=== PATIENT | female | born 1965 | race Caucasian/White ===

== ENCOUNTER 2025-07-21 14:52 | Observation (INO) | payer OTHER, SELFPAY ==
[2025-07-21] VITALS (12 sets, daily range): BP systolic 107–158; BP diastolic 63–101; PULSE 44–84; RESP 17–18; TEMP 36.6; O2SAT 94–100; BMI 24.9
--- NOTE | 2025-07-21 15:06 | CTR_ITS ---
PROCEDURE INFORMATION: Exam: CTA Head With Contrast, Arteriography Exam date and time: 07/21/2025 3:14 PM Age: 60 years old Clinical indication: Dizziness and giddiness and vertigo; Additional info: CVA TECHNIQUE: Imaging protocol: Computed tomographic angiography of the head with contrast. Exam focused on the arteries. AI vessel analysis not performed. 3D rendering (Not supervised by radiologist): MIP and/or 3D reconstructed images were created by the technologist. Radiation optimization: All CT scans at this facility use at least one of these dose optimization techniques: automated exposure control; mA and/or kV adjustment per patient size (includes targeted exams where dose is matched to clinical indication); or iterative reconstruction. Contrast material: OMNIPAQUE 350; Contrast volume: 100 ml; Contrast route: INTRAVENOUS (IV); COMPARISON: CT head thrombolytic [id number] 07/21/2025 3:10 PM RADIATION DOSE METRICS: Total DLP (mGy-cm): 437.52 FINDINGS: ANTERIOR CIRCULATION: Right internal carotid artery: Right internal carotid artery is patent. No significant stenosis. No aneurysm. Right middle cerebral artery: Right middle cerebral artery is patent. No significant stenosis. No aneurysm. Right anterior cerebral artery: The right NABOR is patent. There is variant azygos configuration present. Anterior communicating artery: No anterior communicating artery aneurysm seen. Left internal carotid artery: The left internal carotid artery is patent. Left middle cerebral artery: The left MCA is patent. There is a 4 x 5 mm aneurysm present at the left MCA bifurcation on series 4, image 227. Left anterior cerebral artery: Left anterior cerebral artery is patent. No significant stenosis. No aneurysm. POSTERIOR CIRCULATION: Right vertebral artery: Right vertebral artery is patent. No significant stenosis. No aneurysm. Left vertebral artery: Left vertebral artery is patent. No significant stenosis. No aneurysm. Basilar artery: The basilar artery is patent. No significant stenosis. No aneurysm. Right posterior cerebral artery: The right REGULATORY AFFAIRS ASSISTANT has anatomic variant origin. Left posterior cerebral artery: Left posterior cerebral artery is patent. No significant stenosis. No aneurysm. Left posterior communicating artery: There is a 2.5 mm infundibulum or small aneurysm left PCOM origin series 4, image 216. Veins: Visualized dural venous sinuses grossly patent on this study optimized for arterial assessment. Brain: There is no definite mass, mass effect, or midline shift present. No definite vascular malformation identified. Cerebral ventricles: No significant ventriculomegaly. Paranasal sinuses: Chronic left maxillary sinus opacification again seen. Bones/joints: No displaced calvarial fracture identified. Soft tissues: No acute soft tissue findings. PROCEDURE INFORMATION: Exam: CTA Neck With Contrast Exam date and time: 07/21/2025 3:14 PM Age: 60 years old Clinical indication: Dizziness and giddiness and vertigo; Additional info: CVA TECHNIQUE: Imaging protocol: Computed tomographic angiography of the neck with contrast. Exam focused on the cervical segments of the vasculature. 3D rendering (Not supervised by radiologist): MIP and/or 3D reconstructed images were created by the technologist. Radiation optimization: All CT scans at this facility use at least one of these dose optimization techniques: automated exposure control; mA and/or kV adjustment per patient size (includes targeted exams where dose is matched to clinical indication); or iterative reconstruction. Contrast material: OMNIPAQUE 350; Contrast volume: 100 ml; Contrast route: INTRAVENOUS (IV); COMPARISON: CT head thrombolytic [id number] 07/21/2025 3:10 PM RADIATION DOSE METRICS: Total DLP (mGy-cm): 437.52 FINDINGS: Right common carotid artery: The right common carotid artery is widely patent. No stenosis. Right internal carotid artery: Atherosclerotic changes proximal right internal carotid artery are seen without significant stenosis. Right external carotid artery: Right external carotid artery has no visible occlusion. Left common carotid artery: The left common carotid artery is widely patent. No stenosis. Left internal carotid artery: Atherosclerotic changes proximal left internal carotid artery are seen without significant stenosis. Left external carotid artery: Left external carotid artery has no visible occlusion. Right vertebral artery: Right vertebral artery is patent. No significant stenosis. No evidence of dissection. Left vertebral artery: Left vertebral artery is patent. No significant stenosis. No evidence of dissection. Soft tissues: No acute soft tissue findings. Bones/joints: Degenerative bony changes. Lungs: Emphysema in the lungs. Other findings: Visualized mediastinal vasculature patent. CT/CT angio headneck* [id number] IMPRESSION: 1. No acute large vessel occlusion identified. 2. There is a 4 x 5 mm aneurysm present at the left MCA bifurcation on series 4, image 227. Neurosurgical follow-up recommended given size. 3. There is a 2.5 mm infundibulum or small aneurysm left PCOM origin series 4, image 216. IMPRESSION: No occlusion or significant stenosis. REFERENCES: NASCET CRITERIA. The degree of stenosis in the cervical segment of the internal carotid artery is based on NASCET criteria. Normal is no stenosis. Mild is less than 50% stenosis. Moderate is 50-69% stenosis. Severe is 70% to 99% stenosis. Total occlusion is no detectable patent lumen.
--- NOTE | 2025-07-21 15:06 | XRR_ITS ---
PROCEDURE INFORMATION: Exam: XR Chest Exam date and time: 07/21/2025 3:15 PM Age: 60 years old Clinical indication: Other: Dizzy; Additional info: CVA TECHNIQUE: Imaging protocol: Radiologic exam of the chest. Views: 1 view. COMPARISON: No relevant prior studies available. FINDINGS: Airway: The trachea is midline. Lungs: No focal consolidation. Pleural spaces: No significant pleural effusion. No pneumothorax. Heart/Mediastinum: Mild cardiomegaly. Vasculature: Aortic tortuosity. Bones/joints: No acute osseous abnormality. Soft tissues: No acute soft tissue findings. XR/XR chest 1V portable [id number] IMPRESSION: No acute findings.
--- NOTE | 2025-07-21 15:07 | CTR_ITS ---
PROCEDURE INFORMATION: Exam: CT Head Without Contrast Exam date and time: 07/21/2025 3:10 PM Age: 60 years old Clinical indication: Stroke-like symptoms; Dizziness/giddiness and vomiting; Additional info: Symptoms of acute stroke TECHNIQUE: Imaging protocol: Computed tomography of the head without contrast. Radiation optimization: All CT scans at this facility use at least one of these dose optimization techniques: automated exposure control; mA and/or kV adjustment per patient size (includes targeted exams where dose is matched to clinical indication); or iterative reconstruction. Other technique: STROKE PROTOCOL was implemented. COMPARISON: No relevant prior studies available. RADIATION DOSE METRICS: Total DLP (mGy-cm): 1060.98 FINDINGS: Brain: No acute infarct. No acute hemorrhage. Unremarkable white matter for age. No midline shift. Cerebral ventricles: No significant ventriculomegaly. Paranasal sinuses: Partially seen left maxillary sinus opacification with crowding osteitis changes. Mild mucosal thickening in the ethmoids. No air-fluid level seen. Mastoid air cells: Mastoid air cells are well-aerated. Orbital cavities: Visualized portions of the orbits are unremarkable. Bones: No displaced calvarial fracture identified. Soft tissues: No acute soft tissue findings. CT/CT head thrombolytic [id number] IMPRESSION: 1. No acute intracranial abnormality. 2. Chronic left maxillary sinusitis changes. ASSESSMENT: ASPECTS ([place] Stroke Program Early CT Score) is 10.
[2025-07-21 15:16] LABS: Hematocrit 38.5 % (36-47); Hemoglobin 13.00 g/dL (11.27-16.99); Mean Corpuscular HGB Conc 33.8 g/dL (30-55); Mean Corpuscular Hemoglobin 30.4 pg (27-33); Mean Corpuscular Volume 90.0 fl (85-98); Nucleated Red Blood Cells % 0 %; Platelet Count 222 10^3/cmm (157-399); Red Blood Count 4.28 10^6/uL (3.85-5.65); White Blood Count 7.79 10^3/uL (3.29-11.43)
[2025-07-21] MEDS: iohexol 350 mg/mL 500 mL Btl (per mL) IV (15:22)
[2025-07-21 15:27] LABS: INR 0.79 (0.8-1.2); Prothrombin Time 11.60 SECONDS (12.1-14.9)
[2025-07-21 15:28] LABS: Partial Thromboplastin Time 28.1 SECONDS (23.9-36.7)
[2025-07-21 15:32] LABS: Alanine Aminotransferase 20 U/L (0-33); Albumin Level 4.3 g/dL (3.5-5.2); Alkaline Phosphatase 67 U/L (35-105); Aspartate Amino Transferase 24 U/L (0-32); Blood Urea Nitrogen 22 mg/dL (8-23); Calcium 9.6 mg/dL (8.5-10.5); Carbon Dioxide 24 mmol/L (22-29); Chloride 98 mmol/L (98-107); Globulin 2.9 g/dL (1.3-4.6); Glucose 110 mg/dL (65-115); Osmolality Calculated 286 mOsm/kg (285-295); Sodium 136 mmol/L (136-145); Total Protein 7.2 g/dL (6.6-8.7)
[2025-07-21 15:36] LABS: Anion Gap 17.5 (5-19); Potassium 3.5 mmol/L (3.5-5.1)
--- NOTE | 2025-07-21 15:58 | ECG_ITS ---
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: : 1965 Requested By: Armando Tejeda Order Number: [id number] Lev MD: EDITH RICE Measurements Intervals [place] Rate: 46 P: 42 SC: 185 QRS: -48 QRSD: 96 T: 48 QT: 476 QTc: 417 Interpretive Statements SINUS BRADYCARDIA INCOMPLETE RIGHT BUNDLE BRANCH BLOCK [90+ ms QRS DURATION, TERMINAL R IN V1/V2, 40+ ms S IN I/aVL/V4/V5/V6] LEFT ANTERIOR FASCICULAR BLOCK [QRS AXIS <= -45, QR IN I, RS IN II] No previous ECG available for comparison Electronically Signed On 07-21-2025 22:51:11 PROCESS SAFETY ENGINEER by EDITH RICE [email or web address]
[2025-07-21] MEDS: ondansetron 2 mg/ML SDV 2 mL 4 MG IVP (16:12)
--- NOTE | 2025-07-21 16:15 | ED_ITS ---
HPI - Dizziness 2 General: Chief Complaint: Dizziness Stated Complaint: dizzy Time Seen by Provider: 07/21/25 15:04 Source: patient and EMS Mode of arrival: EMS Limitations: no limitations History of Present Illness: HPI Narrative: 60-year-old female states that she got a shower around 1330 today and started having dizziness. She states that it is much worse with movement been having a hard time walking due to the dizziness along with some nausea. States it is improved with rest. Has a history of an aneurysm in the brain she is unsure where. She denies any headaches she denies any focal weakness denies any vomiting or diarrhea. Related Data Allergies Allergy/AdvReac Type Severity Reaction Status Date / Time No Known Allergies Allergy Verified 07/21/25 15:01 Course 2 Vital Signs: Vital signs: Vital Signs Temperature 97.9 F 07/21/25 14:52 Pulse Rate 52 L 07/21/25 14:52 Respiratory Rate 18 07/21/25 14:52 Blood Pressure 127/81 07/21/25 14:52 Pulse Oximetry 100 07/21/25 14:52 Oxygen Delivery Ar thod Room Air 07/21/25 14:52 MDM - Dizziness Medical Decision Making 60-year-old female presents here with vertigo differential includes peripheral vertigo versus posterior stroke. Patient has no other neurologic findings her head CT showed no acute abnormalities CTA showed no signs of LVO lab work showed no significant abnormalities here. Patient was evaluated by neurologist from [facility] by teleneurology he did not recommend TNKase as they believe is likely peripheral in origin I did give her Antivert and Zofran her symptoms have improved here I did speak to hospitalist will admit for observation to rule out posterior stroke EKG interpreted by me at 1558 sinus bradycardia heart rate [address] elevation QRS 96 QTc 434 Medical Records I reviewed the patient's medical records. Lab Data I reviewed the patient's lab results. 07/21/25 15:07 07/21/25 15:07 Radiology Impressions Chest X-Ray 07/21/25 15:06 IMPRESSION: No acute findings. Head/Neck CTA 07/21/25 15:06 IMPRESSION: 1. No acute large vessel occlusion identified. 2. There is a 4 x 5 mm aneurysm present at the left MCA bifurcation on series 4, image 227. Neurosurgical follow-up recommended given size. 3. There is a 2.5 mm infundibulum or small aneurysm left PCOM origin series 4, image 216. IMPRESSION: No occlusion or significant stenosis. REFERENCES: NASCET CRITERIA. The degree of stenosis in the cervical segment of the internal carotid artery is based on NASCET criteria. Normal is no stenosis. Mild is less than 50% stenosis. Moderate is 50-69% stenosis. Severe is 70% to 99% stenosis. Total occlusion is no detectable patent lumen. Head CT 07/21/25 15:07 IMPRESSION: 1. No acute intracranial abnormality. 2. Chronic left maxillary sinusitis changes. ASSESSMENT: ASPECTS ([place] Stroke Program Early CT Score) is 10. ADDENDUM: 07/21/25 1531 Findings were discussed with ISHAN Jiang at 07/21/2025 3:29 PM SHEET MANUFACTURING SUPERVISOR. Laboratory Results WBC 7.79 10^3/uL (3.29-11.43) 07/21/25 15:07 RBC 4.28 10^6/uL (3.85-5.65) 07/21/25 15:07 Hgb 13.00 g/dL (11.27-16.99) 07/21/25 15:07 Hct 38.5 % (36-47) 07/21/25 15:07 MCV 90.0 fl (85-98) 07/21/25 15:07 MCH 30.4 pg (27-33) 07/21/25 15:07 MCHC 33.8 g/dL (30-55) 07/21/25 15:07 RDW 13.4 % (12.1-15.1) 07/21/25 15:07 Plt Count 222 10^3/cmm (157-399) 07/21/25 15:07 MPV 11.1 fL (7.4-10.4) H 07/21/25 15:07 Neut % (Auto) 59.7 % 07/21/25 15:07 Lymph % (Auto) 30.6 % 07/21/25 15:07 [place] % (Auto) 6.9 % 07/21/25 15:07 Eos % (Auto) 2.1 % 07/21/25 15:07 Baso % (Auto) 0.6 % 07/21/25 15:07 Neut # (Auto) 4.65 10^3/uL (1.8-7.7) 07/21/25 15:07 Lymph # (Auto) 2.4 10^3/uL (0.8-4.8) 07/21/25 15:07 [place] # (Auto) 0.5 10^3/uL (0.2-0.9) 07/21/25 15:07 Eos # (Auto) 0.2 10^3/uL (0.0-0.8) 07/21/25 15:07 Baso # (Auto) 0.1 10^3/uL (0.0-0.1) 07/21/25 15:07 Nucleated RBC % (auto) 0 % 07/21/25 15:07 Nucleated RBCs # 0.0 /100WBC 07/21/25 15:07 PT 11.60 SECONDS (12.1-14.9) L 07/21/25 15:07 INR 0.79 (0.8-1.2) L 07/21/25 15:07 APTT 28.1 SECONDS (23.9-36.7) 07/21/25 15:07 Sodium 136 mmol/L (136-145) 07/21/25 15:07 Potassium 3.5 mmol/L (3.5-5.1) 07/21/25 15:07 Chloride 98 mmol/L (98-107) 07/21/25 15:07 Carbon Dioxide 24 mmol/L (22-29) 07/21/25 15:07 Anion Gap 17.5 (5-19) 07/21/25 15:07 BUN 22 mg/dL (8-23) 07/21/25 15:07 Creatinine 0.6 mg/dL (0.5-0.9) 07/21/25 15:07 GFR Calculation 102.0 mL/min (90-130) 07/21/25 15:07 Glucose 110 mg/dL (65-115) 07/21/25 15:07 Calculated Osmolality 286 mOsm/kg (285-295) 07/21/25 15:07 Calcium 9.6 mg/dL (8.5-10.5) 07/21/25 15:07 Total Bilirubin 0.4 mg/dL (0.15-1.2) 07/21/25 15:07 AST 24 U/L (0-32) 07/21/25 15:07 ALT 20 U/L (0-33) 07/21/25 15:07 Alkaline Phosphatase 67 U/L (35-105) 07/21/25 15:07 Total Protein 7.2 g/dL (6.6-8.7) 07/21/25 15:07 Albumin 4.3 g/dL (3.5-5.2) 07/21/25 15:07 Globulin 2.9 g/dL (1.3-4.6) 07/21/25 15:07 Urine Color Yellow (Yellow) 07/21/25 16:28 Urine Appearance Turbid (CLEAR) A 07/21/25 16: Urine pH 8.5 (5-7) A 07/21/25 16: Ur Specific [place] 1.039 (1.005-1.030) H 07/21/25 16:28 Urine Protein Negative (Negative) 07/21/25 16:28 Urine Glucose (UA) Negative (Normal) 07/21/25 16:28 Urine Ketones Negative (Negative) 07/21/25 16: Urine Blood Negative (Negative) 07/21/25 16:28 Urine Nitrate Negative (Negative) 07/21/25 16:28 Urine Bilirubin Negative (Negative) 07/21/25 16:28 Urine Urobilinogen 0.2 mg/dL (Negative) 07/21/25 16:28 Ur Leukocyte Esterase Negative (Negative) 07/21/25 16:28 Urine RBC 0-2 /hpf (0-2) 07/21/25 16:28 Urine WBC 0-5 /hpf (0-5) 07/21/25 16:28 Ur Squamous Epith Cells 0-5 /hpf (0-5) 07/21/25 16:28 Amorphous Sediment Not Reportable 07/21/25 16:28 Urine Bacteria None seen /hpf (NONE) 07/21/25 16: Hyaline Casts 0-4 /lpf H 07/21/25 16:28 Urine Opiates Screen Negative ng/mL (Negative) 07/21/25 16:28 Ur Barbiturates Screen Negative ng/mL (Negative) 07/21/25 16:28 Ur Phencyclidine Scrn Negative ng/mL (Negative) 07/21/25 16:28 Ur Amphetamines Screen Negative ng/mL (Negative) 07/21/25 16:28 U Benzodiazepines Scrn Negative ng/mL (Negative) 07/21/25 16:28 Urine Cocaine Screen Negative ng/mL (Negative) 07/21/25 16:28 U Marijuana (THC) Screen Negative ng/mL (Negative) 07/21/25 16:28 All radiology interpretation(s) finalized by discharge Discharge Plan Discharge Patient Disposition: Admitted As Inpatient Clinical Impression: Vertigo Condition: Stable Coding Level of Care Code ED Calender Roll Operator for Camilla Segura
[2025-07-21 16:37] LABS: Glucose Urine UA Negative (Normal); Nitrate Urine Negative (Negative)
[2025-07-21 16:40] LABS: Add Urine Microscopic? YES
[2025-07-21 16:44] LABS: Specific Gravity, Urine 1.039 (1.005-1.030)
[2025-07-21 16:46] LABS: PCP Screen Urine Negative (Negative)
--- NOTE | 2025-07-21 18:41 | P.HP_ITS ---
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 Patient presented to [facility] ED on 07/21/25 with acute onset dizziness that began today after getting out of the shower at ~1300. The dizziness is positional, worsening when sitting up or standing. Characterizes dizziness as room spinning that prevents her from standing or ambulating without assistance. Reports mild headache that started concurrently with the dizziness. Denies nausea and vomiting. She has not sustained a syncopal event. Denies unilateral weakness, diminished sensation and difficulty with speech. No recent falls or injury to the head. Patient has been monitoring her heart rate with a smart watch and notes frequent drops into the 40s during normal activity. During episodes of bradycardia she reports feeling profound fatigue and overall feeling unwell. Reports experiencing sensation of a racing heart or palpitations while in bed at night. ED workup reviewed Presenting VS T 97.9?F BP 136/82 HR 46 RR 18 SpO2 94% on room air Labs, 07/21/25 1507 Hemogram WBC 7.79 HGB 13 PLT 222 Coags PT 11.60 INR 0.79 aPTT 28.1 Chemistry Na 136 K 3.5 Cl 98 Ca 9.6 CO2 24 AG 17.5 BUN 22 Cr 0.6 eGFR 102 AST 24 ALT 20 ALP 67 T.Bili 0.4 Urinalysis SG 1.039, no indiction of infection Toxicology UDS (-) EKG, 07/21/25 1558 SB, incomplete R-BBB, LAFB, QTc 417 CXR: Mild cardiomegaly. No acute findings. CTA Head/Neck: No acute LVO identified. A 4 x 5 mm aneurysm present at the left MCA bifurcation. A 2.5 mm infundibulum or small aneurysm left PCOM origin. Review of Systems 2 General: Reports: 10 or more systems reviewed and unremarkable except in HPI and below Medications/Allergies Allergies Allergy/AdvReac Type Severity Reaction Status Date / Time No Known Allergies Allergy Verified 07/21/25 15:01 Vitals/I&O/Wt Last Vital Signs Temp 97.9 F 07/21/25 14:52 Pulse 52 L 07/21/25 14:52 Resp 18 07/21/25 14:52 BP 127/81 07/21/25 14:52 Pulse Ox 100 07/21/25 14:52 O2 Del Method Room Air 07/21/25 14:52 07/21/25 07/21/25 07/21/25 06:59 14:59 22:59 Intake Total 0 / 0 Balance 0 / 0 Weight last 48 hrs Weight 65.771 kg Physical Exam 2 Narrative: Constitutional * NAD Neurologic * Awake and alert. Oriented x3. * No facial asymmetry, unilateral weakness or speech deficits. Head * Normocephalic. Atraumatic. Eyes * PERRLA. EOMI. No nystagmus. Ears, Nose, Throat * Normal external ears. Hearing intact to normal voice. * Normal external nose. No epistaxis. * Dry MM Respiratory * CTAB * No dyspnea at rest or with conversation. No accessory muscle use. * On room air. Heart / Cardiovascular * Regular. Bradycardia on monitor with rates in the 40s. * No murmur Extremities * No edema bilaterally * Distal pulses 2+ and symmetric. No cyanosis. * Sensation intact to light touch. Abdomen / Gastrointestinal * Soft. Non-tender. Non-distended. + BS. Genitourinary * No suprapubic Musculoskeletal * No gross deformities, asymmetry, swelling or muscle atrophy on observation * Full ROM in all major joints without pain * Strength 5/5 throughout in bilateral upper and lower extremities Skin / Integumentary * No rashes, lesions, petechiae / ecchymosis, ulcerations or open wounds. Data 07/21/25 15:07 07/21/25 15:07 A&P Assessment and plan 1. Dizziness: Plan: # Dizziness - MRI head w/wo - Neuro checks - Meclizine 25 BID prn # Symptomatic bradycardia - cardiac monitoring - echo - hold BB - orthostatic VS QShift x4 # Dehydration - LR at 100 x10 hours # Cerebral aneurysms CT head identified intracranial aneurysms (4 x 5 mm left MCA bifurcation and 2.5 mm left PCOM infundibulum vs small aneurysm). - Will need to refer her for outpatient neurosurgical evaluation Doesn't know home med doses, will need to verify when availble VTE PPx: SCDs PDMP PDMP Reviewed: Not Reviewed Attestations 2 Medical Necessity Statement*: Patient admitted under observation status. Patient will require less than two midnights for dizziness work-up. Coding Level of Care Code 83514 Diagnoses Dizziness R42
[2025-07-22] VITALS (20 sets, daily range): BP systolic 79–152; BP diastolic 49–99; PULSE 51–79; RESP 15–20; O2SAT 94–98; BMI 26.6
--- OUTSIDE RECORDS SUMMARY | 2025-07-22 07:54 | XMS_ITS | Encounter Summary ---
Author Organization [facility] Address [address] [place] [address] Care Team Providers Care Abstract Manager Name Role Phone Walt Quintero MD Primary Care Provider [phone] Encounter Details Date Type Department Care Team (Latest Contact Info) Description 09/12/1998 Outpatient Historical [facility] Internal Medicine- [place] [address] [place] [address] Sachin Howard III, MD [address] [place] [phone] Acute tonsillitis (Primary Dx); Headache(784.0) Social History Tobacco Use Types Packs/Day Years Used Date Smoking Tobacco: Never Assessed Comments Unknown Sex and Gender Information Value Date Recorded Sex Assigned at Not on file Legal 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 Gender Identity Not on file Sexual Orientation Not on file documented as of this encounter Plan of Treatment Not on file documented as of this encounter Visit Diagnoses Diagnosis Acute tonsillitis- Primary Headache(784.0) Headache documented in this encounter Additional Health Concerns Infection Onset Date Last Indicated Resolved Time R/O COVID-19 06/12/2020 06/12/2020 06/12/2020 5:13 PM WILLOW ANALYST COVID-19 06/12/2020 06/12/2020 07/12/2020 8:08 PM WILLOW ANALYST R/O COVID-19 09/16/2020 09/16/2020 09/16/2020 6:00 PM WILLOW ANALYST documented as of this encounter Care Teams Abstract Manager Relationship Specialty Start Date End Date Walt Quintero MD [address] [facility] [address] [place] [id number] PCP - General 07/23/05 documented as of this encounter
--- OUTSIDE RECORDS SUMMARY | 2025-07-22 07:54 | XMS_ITS | Encounter Summary ---
Author Organization [facility] Address [address] [place] [address] Care Team Providers Care Quantitative Analyst Developer Name Role Phone Walt Quintero MD Primary Care Provider [phone] Encounter Details Date Type Department Care Team (Latest Contact Info) Description 07/11/2000 Outpatient Historical [facility] Internal Medicine- [place] [address] [place] [address] Sachin Howard III, MD [address] [place] [phone] Myalgia and myositis, unspecified (Primary Dx) Social History Tobacco Use Types Packs/Day Years Used Date Smoking Tobacco: Never Assessed Comments Unknown Sex and Gender Information Value Date Recorded Sex Assigned at Not on file 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 Gender Identity Not on file Sexual Orientation Not on file documented as of this encounter Plan of Treatment Not on file documented as of this encounter Visit Diagnoses Diagnosis Myalgia and myositis, unspecified- Primary Mylagia and myositis, unspecified documented in this encounter Additional Health Concerns Infection Onset Date Last Indicated Resolved Time R/O COVID-19 06/12/2020 06/12/2020 06/12/2020 5:13 PM AXLE AND FRAME MECHANIC COVID-19 06/12/2020 06/12/2020 07/12/2020 8:08 PM AXLE AND FRAME MECHANIC R/O COVID-19 09/16/2020 09/16/2020 09/16/2020 6:00 PM AXLE AND FRAME MECHANIC documented as of this encounter Care Teams Quantitative Analyst Developer Relationship Specialty Start Date End Date Walt Quintero MD [address] [facility] [address] [place] [phone] PCP - General 07/23/05 documented as of this encounter
--- OUTSIDE RECORDS SUMMARY | 2025-07-22 07:54 | XMS_ITS | Encounter Summary ---
Author Organization [facility] Address [address] [place] [address] Care Team Providers Care Hogshead Wrecker Name Role Phone Walt Quintero MD Primary Care Provider [phone] Encounter Details Date Type Department Care Team (Latest Contact Info) Description 06/20/1999 Outpatient Historical [facility] Urgent [facility] [address] [place] [phone] Mary Garza NO ADDRESS ON FILE Streptococcal sore throat (Primary Dx) Social History Tobacco Use Types Packs/Day Years Used Date Smoking Tobacco: Never Assessed Comments Unknown Sex and Gender Information Value Date Recorded Sex Assigned at Not on file 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 Gender Identity Not on file Sexual Orientation Not on file documented as of this encounter Plan of Treatment Not on file documented as of this encounter Visit Diagnoses Diagnosis Streptococcal sore throat- Primary documented in this encounter Additional Health Concerns Infection Onset Date Last Indicated Resolved Time R/O COVID-19 06/12/2020 06/12/2020 06/12/2020 5:13 PM APPLE SOLUTIONS CONSULTANT COVID-19 06/12/2020 06/12/2020 07/12/2020 8:08 PM APPLE SOLUTIONS CONSULTANT R/O COVID-19 09/16/2020 09/16/2020 09/16/2020 6:00 PM APPLE SOLUTIONS CONSULTANT documented as of this encounter Care Teams Hogshead Wrecker Relationship Specialty Start Date End Date Walt Quintero MD [address] [address] PCP - General 07/23/05 documented as of this encounter
--- OUTSIDE RECORDS SUMMARY | 2025-07-22 07:54 | XMS_ITS | Encounter Summary ---
Author Organization [facility] Address [address] [place] [address] Care Team Providers Care Hospice Case Manager Name Role Phone Walt Quintero MD Primary Care Provider [phone] Encounter Details Date Type Department Care Team (Latest Contact Info) Description 08/12/2003 Outpatient Historical [facility] [place] [address] [place] [phone] Amber Oakes MD NO ADDRESS ON FILE COUGH (Primary Dx); PNEUMONIA, ORGANISM NOS; TOBACCO USE DISORDER Social History Tobacco Use Types Packs/Day Years Used Date Smoking Tobacco: Never Assessed Comments Unknown Sex and Gender Information Value Date Recorded Sex Assigned at Not on file Legal Sex Female 4:11 AM CORE FILER Gender Identity Not on file Sexual Orientation Not on file documented as of this encounter Plan of Treatment Not on file documented as of this encounter Visit Diagnoses Diagnosis Cough- Primary Pneumonia, organism unspecified(486) Pneumonia, organism unspecified Tobacco use disorder documented in this encounter Additional Health Concerns Infection Onset Date Last Indicated Resolved Time R/O COVID-19 06/12/2020 06/12/2020 06/12/2020 5:13 PM CORE FILER COVID-19 06/12/2020 06/12/2020 07/12/2020 8:08 PM CORE FILER R/O COVID-19 09/16/2020 09/16/2020 09/16/2020 6:00 PM CORE FILER documented as of this encounter Care Teams Hospice Case Manager Relationship Specialty Start Date End Date Walt Quintero MD [address] [phone] PCP - General 07/23/05 documented as of this encounter
--- OUTSIDE RECORDS SUMMARY | 2025-07-22 07:54 | XMS_ITS | Encounter Summary ---
Author Organization [facility] Address [address] [place] [address] Care Team Providers Care Patient Care Manager Name Role Phone Walt Quintero MD Primary Care Provider [phone] Encounter Details Date Type Department Care Team (Late st Contact Info) Description 11/24/1999 Outpatient Historical [facility] Harsh Kaufman MD NO ADDRESS ON FILE Other and unspecified nonspecific immunological findings (Primary Dx) Social History Tobacco Use Types Packs/Day Years Used Date Smoking Tobacco: Never Assessed Comments Unknown Sex and Gender Information Value Date Recorded Sex Assigned at Not on file Legal Sex Female 4:11 AM SQL SERVER ARCHITECT Gender Identity Not on file Sexual Orientation Not on file documented as of this encounter Plan of Treatment Not on file documented as of this encounter Visit Diagnoses Diagnosis Other and unspecified nonspecific immunological findings- Primary documented in this encounter Additional Health Concerns Infection Onset Date Last Indicated Resolved Time R/O COVID-19 06/12/2020 06/12/2020 06/12/2020 5:13 PM SQL SERVER ARCHITECT COVID-19 06/12/2020 06/12/2020 07/12/2020 8:08 PM SQL SERVER ARCHITECT R/O COVID-19 09/16/2020 09/16/2020 09/16/2020 6:00 PM SQL SERVER ARCHITECT documented as of this encounter Care Teams Patient Care Manager Relationship Specialty Start Date End Date Walt Quintero MD [address] [place] [address] PCP - General 07/23/05 documented as of this encounter
--- OUTSIDE RECORDS SUMMARY | 2025-07-22 07:54 | XMS_ITS | Encounter Summary ---
Author Organization [facility] Address [address] [place] [address] Care Team Providers Care Ceramics Engineer Name Role Phone Walt Quintero MD Primary Care Provider [phone] Encounter Details Date Type Department Care Team (Latest Contact Info) Description 03/31/1999 Outpatient Historical [facility] Internal Medicine- [place] [address] [place] [address] Sachin Howard III, MD [address] [place] [address] Infective otitis externa, unspecified (Primary Dx) Social History Tobacco Use Types Packs/Day Years Used Date Smoking Tobacco: Never Assessed Comments Unknown Sex and Gender Information Value Date Recorded Sex Assigned at Not on file Legal Sex Female 4:11 AM ORE CHARGER Gender Identity Not on file Sexual Orientation Not on file documented as of this encounter Plan of Treatment Not on file documented as of this encounter Visit Diagnoses Diagnosis Infective otitis externa, unspecified- Primary documented in this encounter Additional Health Concerns Infection Onset Date Last Indicated Resolved Time R/O COVID-19 06/12/2020 06/12/2020 06/12/2020 5:13 PM ORE CHARGER COVID-19 06/12/2020 06/12/2020 07/12/2020 8:08 PM ORE CHARGER R/O COVID-19 09/16/2020 09/16/2020 09/16/2020 6:00 PM ORE CHARGER documented as of this encounter Care Teams Ceramics Engineer Relationship Specialty Start Date End Date Walt Quintero MD [address] [phone] PCP - General 07/23/05 documented as of this encounter
--- OUTSIDE RECORDS SUMMARY | 2025-07-22 07:54 | XMS_ITS | Encounter Summary ---
Author Organization [facility] Address [address] [place] [address] Care Team Providers Care Therapeutic Recreation Leader Name Role Phone Walt Quintero MD Primary Care Provider Encounter Details Date Type Department Care Team (Latest Contact Info) Description 11/19/1999 Outpatient Historical [facility] Internal Medicine- [place] [address] [place] [address] Sachin Howard III, MD [address] [place] [phone] Syst lupus erythematosus (Primary Dx); Myalgia and myositis, unspecified Social History Tobacco Use Types Packs/Day Years Used Date Smoking Tobacco: Never Assessed Comments Unknown Sex and Gender Information Value Date Recorded Sex Assigned at Not on file Legal Sex Female 4:11 AM FURNACE TAPPER Gender Identity Not on file Sexual Orientation Not on file documented as of this encounter Plan of Treatment Not on file documented as of this encounter Visit Diagnoses Diagnosis Syst lupus erythematosus- Primary Systemic lupus erythematosus Myalgia and myositis, unspecified Mylagia and myositis, unspecified documented in this encounter Additional Health Concerns Infection Onset Date Last Indicated Resolved Time R/O COVID-19 06/12/2020 06/12/2020 06/12/2020 5:13 PM FURNACE TAPPER COVID-19 06/12/2020 06/12/2020 07/12/2020 8:08 PM FURNACE TAPPER R/O COVID-19 09/16/2020 09/16/2020 09/16/2020 6:00 PM FURNACE TAPPER documented as of this encounter Care Teams Therapeutic Recreation Leader Relationship Specialty Start Date End Date Walt Quintero MD [address] [address] PCP - General 07/23/05 documented as of this encounter
--- OUTSIDE RECORDS SUMMARY | 2025-07-22 07:54 | XMS_ITS | Encounter Summary ---
Author Organization [facility] Address [address] Nicole: [place] [address] Care Team Providers Care Hourly Caregiver Name Role Phone Walt Quintero MD Primary Care Provider Encounter Details Date Type Department Care Team (Late st Contact Info) Description 03/06/2002 Outpatient Historical Lee III, Sachin Goldsmith MD [address] [place] [address] Social History Tobacco Use Types Packs/Day Years Used Date Smoking Tobacco: Never Assessed Comments Unknown Sex and Gender Information Value Date Recorded Sex Assigned at Not on file Legal Sex Female 4:11 AM CONCERT PIANIST Gender Identity Not on file Sexual Orientation Not on file documented as of this encounter Plan of Treatment Not on file documented as of this encounter Visit Diagnoses Not on filedocumented in this encounter Additional Health Concerns Infection Onset Date Last Indicated Resolved Time R/O COVID-19 06/12/2020 06/12/2020 06/12/2020 5:13 PM CONCERT PIANIST COVID-19 06/12/2020 06/12/2020 07/12/2020 8:08 PM CONCERT PIANIST R/O COVID-19 09/16/2020 09/16/2020 09/16/2020 6:00 PM CONCERT PIANIST documented as of this encounter Care Teams Hourly Caregiver Relationship Specialty Start Date End Date Walt Quintero MD [address] [address] PCP - General 07/23/05 documented as of this encounter
--- OUTSIDE RECORDS SUMMARY | 2025-07-22 07:54 | XMS_ITS | Encounter Summary ---
Author Organization [facility] Address [address] [place] [address] Care Team Providers Care Focus Puller Name Role Phone Walt Quintero MD Primary Care Provider [phone] Encounter Details Date Type Department Care Team (Late st Contact Info) Description 10/23/2002 Outpatient Historical [facility] [address] [place] [address] Social History Tobacco Use Types Packs/Day Years Used Date Smoking Tobacco: Never Assessed Comments Unknown Sex and Gender Information Value Date Recorded Sex Assigned at Not on file Legal Sex Female 4:11 AM SAWMILL OR TIMBER YARD WORKER Gender Identity Not on file Sexual Orientation Not on file documented as of this encounter Plan of Treatment Not on file documented as of this encounter Visit Diagnoses Not on filedocumented in this encounter Additional Health Concerns Infection Onset Date Last Indicated Resolved Time R/O COVID-19 06/12/2020 06/12/2020 06/12/2020 5:13 PM SAWMILL OR TIMBER YARD WORKER COVID-19 06/12/2020 06/12/2020 07/12/2020 8:08 PM SAWMILL OR TIMBER YARD WORKER R/O COVID-19 09/16/2020 09/16/2020 09/16/2020 6:00 PM SAWMILL OR TIMBER YARD WORKER documented as of this encounter Care Teams Focus Puller Relationship Specialty Start Date End Date Walt Quintero MD [address] [place] [address] PCP - General 07/23/05 documented as of this encounter
--- OUTSIDE RECORDS SUMMARY | 2025-07-22 07:54 | XMS_ITS | Encounter Summary ---
Author Organization [facility] Address [address] [place] [address] Care Team Providers Care Farm Product Purchaser Name Role Phone Walt Quintero MD Primary Care Provider Encounter Details Date Type Department Care Team (Latest Contact Info) Description 02/21/[address] [facility] Internal Medicine- [place] [address] [place] [address] Sachin Howard III, MD [address] [place] [address] HYPERTENSION NOS (Primary Dx) Social History Tobacco Use Types Packs/Day Years Used Date Smoking Tobacco: Never Assessed Comments Unknown Sex and Gender Information Value Date Recorded Sex Assigned at Not on file Legal Sex Female 4:11 AM COUNTERINTELLIGENCE AGENT Gender Identity Not on file Sexual Orientation Not on file documented as of this encounter Plan of Treatment Not on file documented as of this encounter Visit Diagnoses Diagnosis Unspecified essential hypertension- Primary documented in this encounter Additional Health Concerns Infection Onset Date Last Indicated Resolved Time R/O COVID-19 06/12/2020 06/12/2020 06/12/2020 5:13 PM COUNTERINTELLIGENCE AGENT COVID-19 06/12/2020 06/12/2020 07/12/2020 8:08 PM COUNTERINTELLIGENCE AGENT R/O COVID-19 09/16/2020 09/16/2020 09/16/2020 6:00 PM COUNTERINTELLIGENCE AGENT documented as of this encounter Care Teams Farm Product Purchaser Relationship Specialty Start Date End Date Walt Quintero MD [address] [facility] [address] [place] [address] PCP - General 07/23/05 documented as of this encounter
--- OUTSIDE RECORDS SUMMARY | 2025-07-22 07:54 | XMS_ITS | Encounter Summary ---
Author Organization [facility] Address [address] Nicole: Epic Prelude ADT [place] [address] Care Team Providers Care Customer Resolution Specialist Name Role Phone Walt Quintero MD Primary Care Provider [phone] Encounter Details Date Type Department Care Team (Late st Contact Info) Description 03/01/2002 Outpatient Historical Wiley Das MD NO ADDRESS ON FILE Social History Tobacco Use Types Packs/Day Years Used Date Smoking Tobacco: Never Assessed Comments Unknown Sex and Gender Information Value Date Recorded Sex Assigned at Not on file Legal Sex Female 4:11 AM FIRE CREW WORKER Gender Identity Not on file Sexual Orientation Not on file documented as of this encounter Plan of Treatment Not on file documented as of this encounter Visit Diagnoses Not on filedocumented in this encounter Additional Health Concerns Infection Onset Date Last Indicated Resolved Time R/O COVID-19 06/12/2020 06/12/2020 06/12/2020 5:13 PM FIRE CREW WORKER COVID-19 06/12/2020 06/12/2020 07/12/2020 8:08 PM FIRE CREW WORKER R/O COVID-19 09/16/2020 09/16/2020 09/16/2020 6:00 PM FIRE CREW WORKER documented as of this encounter Care Teams Customer Resolution Specialist Relationship Specialty Start Date End Date Walt Quintero MD [address] [place] [phone] PCP - General 07/23/05 documented as of this encounter
--- OUTSIDE RECORDS SUMMARY | 2025-07-22 07:54 | XMS_ITS | Encounter Summary ---
Author Organization [facility] Address [address] [place] [address] Care Team Providers Care Contact Assembler Name Role Phone Walt Quintero MD Primary Care Provider [phone] Encounter Details Date Type Department Care Team (Latest Contact Info) Description 11/23/2002 Outpatient Historical [facility] Internal Medicine- [place] [address] [place] [address] Sachin Howard III, MD [address] [place] [address] HYPERTENSION NOS (Primary Dx); OTHER GENERAL SYMPTOMS Social History Tobacco Use Types Packs/Day Years Used Date Smoking Tobacco: Never Assessed Comments Unknown Sex and Gender Information Value Date Recorded Sex Assigned at Not on file Legal Sex Female 4:11 AM GUEST SERVICE TEAM LEADER Gender Identity Not on file Sexual Orientation Not on file documented as of this encounter Plan of Treatment Not on file documented as of this encounter Visit Diagnoses Diagnosis Unspecified essential hypertension- Primary Other general symptoms(780.99) Other general symptoms documented in this encounter Additional Health Concerns Infection Onset Date Last Indicated Resolved Time R/O COVID-19 06/12/2020 06/12/2020 06/12/2020 5:13 PM GUEST SERVICE TEAM LEADER COVID-19 06/12/2020 06/12/2020 07/12/2020 8:08 PM GUEST SERVICE TEAM LEADER R/O COVID-19 09/16/2020 09/16/2020 09/16/2020 6:00 PM GUEST SERVICE TEAM LEADER documented as of this encounter Care Teams Contact Assembler Relationship Specialty Start Date End Date Walt Quintero MD [address] [facility] [address] [place] [phone] PCP - General 07/23/05 documented as of this encounter
--- OUTSIDE RECORDS SUMMARY | 2025-07-22 07:54 | XMS_ITS | Encounter Summary ---
Author Organization [facility] Address [address] [place] [address] Care Team Providers Care Crop Farmers Name Role Phone Walt Quintero MD Primary Care Provider [phone] Encounter Details Date Type Department Care Team (Late Contact Info) Description 01/20/2023 Lab Requisition [facility] Laboratory Services [facility] [address] [place] [address] Carlos Grier PA [address] [place], [place] [phone] Social History Tobacco Use Types Packs/Day Years Used Date Smoking Tobacco: Every Day Cigarettes Smokeless Tobacco: Never Comments:Quit smokin Alcohol Use Standard Drinks/Week Comments No 0 (1 standard drink = 0.6 oz pur e alcohol) Comments No Sex and Gender Information Value Date Recorded Sex Assigned at Not on file Legal Sex Female 3:52 PM TANGLED YARN SPOOL STRAIGHTENER Gender Identity Not on file Sexual Orientation Not on file documented as of this encounter Plan of Treatment Upcoming Encounters Date Type Department Care Team (Late st Contact Info) Description 10/07/2025 3:00 PM CDT Office Visit [facility] [address] [place] [address] Walt Quintero MD [address] [facility] [address] [place] [address] 10/14/2025 8:00 AM CDT Hospital Encounter [facility] Endoscopy [address] [place] [address] Junito Hardwick MD [address] [address] 10/14/2025 8:00 AM CDT - 10/14/2025 8:20 AM CDT Surgery [facility] [address] [place] [address] [facility] [address] [address] COLONOSCOPY 10/29/2025 1:00 PM CDT Office Visit [facility] [address] [facility] [address] [place] [address] Shyam Birmingham MD [address] [facility] [address] [place] [address] Scheduled Procedures Name Priority Associated Diagnoses Date/Ti me COLONOSCOPY Screening for colon cancer 10/14/2025 8:00 AM CDT documented as of this encounter Procedures Procedure Name Priority Date/Time Associated Diagnosis Comments EXTRA TUBE (GREEN) Routine 01/20/2023 6: 53 PM CDT CBC WITH DIFFERENTIAL Stat 01/20/2023 6:53 PM CDT SEDIMENTATION RATE Stat 01/20/2023 6: 53 PM CDT documented in this encounter Results * EXTRA TUBE (GREEN) (01/20/2023 6:53 PM CDT) Blood Collection / Unknown 01/20/2023 6:53 PM CDT 01/20/2023 7:41 PM CDT Carlos HOFFMAN CHEMISTRY ORDERABLES Final Re sult [facility] CLIA # [id number] [address] [place] [id number] [place], [place] [id number] * SEDIMENTATION RATE (01/20/2023 6:53 PM CDT) [facility] ESR (SEDIMENTATION RATE) 19 0 - 20 mm/Hr 01/20/2023 8:20 PM CDT [facility] Blood Collection / Unknown 01/20/2023 6:53 PM CDT 01/20/2023 7:23 PM CDT us Carlos HOFFMAN HEMATOLOGY ORDERABLES Final R esult [facility] CLIA # [id number] [address] [address] * (ABNORMAL) CBC WITH DIFFERENTIAL (01/20/2023 6:53 PM CDT) [facility] WBC 8.6 4.8 - 10.8 K/uL 01/20/2023 7:26 PM CDT [facility] RBC 4.25 4.20 - 5.40 M/uL 01/20/2023 7:26 PM CDT [facility] HEMOGLOBIN 13.3 12.0 - 16.0 g/dL 01/20/2023 7:26 PM CDT [facility] HEMATOCRIT 38.6 36.0 - 46.0 % 01/20/2023 7:26 PM CDT [facility] MCV 90.8 84.0 - 103.0 fL 01/20/2023 7:26 PM CDT [facility] MCH 31.3 27.0 - 34.0 pg 01/20/2023 7:26 PM CDT [facility] MCHC 34.5 30.0 - 35.0 g/dL 01/20/2023 7:26 PM CDT [facility] RDW 13.9 11.0 - 14.5 % 01/20/2023 7:26 PM T [facility] RDW-STDEV 46.6 37.0 - 54.0 fL 01/20/2023 7:26 PM CDT [facility] PLATELETS 224 140 - 440 K/uL 01/20/2023 7:26 PM [facility] MPV 11.0 8.9 - 12.8 fL 01/20/2023 7:26 PM [facility] NEUTROPHILS 43 42 - 75 % 01/20/2023 7:26 PM [facility] LYMPHOCYTES 43 24 - 44 % 01/20/2023 7:26 PM [facility] MONOCYTES 9 2 - 10 % 01/20/2023 7:26 PM [facility] EOSINOPHILS 5 0 - 7 % 01/20/2023 7:26 PM [facility] BASOPHILS 1 0 - 1 % 01/20/2023 7:26 PM [facility] IMMATURE GRANULOCYTES 0 0 - 2 % 01/20/2023 7:26 PM [facility] NEUTROPHIL ABSOLUTE 3.67 2.00 - 8.00 K/uL 01/20/2023 7:26 PM [facility] LYMPHOCYTE ABSOLUTE 3.64 1.20 - 4.00 K/uL 01/20/2023 7:26 PM [facility] MONOCYTE ABSOLUTE 0.78(H) 0.10 - 0.60 K/uL 01/20/2023 7:26 PM [facility] EOSINOPHIL ABSOLUTE 0.40 0.00 - 0.70 K/uL 01/20/2023 7:26 PM [facility] BASOPHILS ABSOLUTE 0.05 0.00 - 0.20 K/uL 01/20/2023 7:26 PM [facility] IMMATURE GRANULOCYTES ABSOLUTE 0.02 0.00 - 0.10 K/uL 01/20/2023 7:26 PM [facility] Blood Collection / Unknown 01/20/2023 6:53 PM CDT 01/20/2023 7:23 PM CDT us Carlos HOFFMAN HEMATOLOGY ORDERABLES Final R esult [facility] # [id number] [address] [facility] [place] [address] documented in this encounter Visit Diagnoses Not on filedocumented in this encounter Care Teams Crop Farmers Relationship Specialty Start Date End Date Walt Quintero MD [address] [facility] [address] [place] [address] PCP - General 07/23/05 documented as of this encounter
--- OUTSIDE RECORDS SUMMARY | 2025-07-22 07:54 | XMS_ITS | Encounter Summary ---
Author Organization [facility] Address [address] [place] [address] Care Team Providers Care Dishwasher Busser Name Role Phone Walt Quintero MD Primary Care Provider [phone] Encounter Details Date Type Department Care Team (Latest Contact Info) Description 02/22/2000 Outpatient Historical [facility] Rheumatology- [facility] [address] [place] [phone] Harsh Kaufman MD NO ADDRESS ON FILE Rheumatism, unspecified and fibrositis (Primary Dx); Depressive disorder, not elsewhere classified Social History Tobacco Use Types Packs/Day Years Used Date Smoking Tobacco: Never Assessed Comments Unknown Sex and Gender Information Value Date Recorded Sex Assigned at Not on file Legal Sex Female 4:11 AM UTILITY SPECIALIST Gender Identity Not on file Sexual Orientation Not on file documented as of this encounter Plan of Treatment Not on file documented as of this encounter Visit Diagnoses Diagnosis Rheumatism, unspecified and fibrositis- Primary Depressive disorder, not elsewhere classified documented in this encounter Additional Health Concerns Infection Onset Date Last Indicated Resolved Time R/O COVID-19 06/12/2020 06/12/2020 06/12/2020 5:13 PM UTILITY SPECIALIST COVID-19 06/12/2020 06/12/2020 07/12/2020 8:08 PM UTILITY SPECIALIST R/O COVID-19 09/16/2020 09/16/2020 09/16/2020 6:00 PM UTILITY SPECIALIST documented as of this encounter Care Teams Dishwasher Busser Relationship Specialty Start Date End Date Walt Quintero MD [address] [address] PCP - General 07/23/05 documented as of this encounter
--- OUTSIDE RECORDS SUMMARY | 2025-07-22 07:54 | XMS_ITS | Encounter Summary ---
Author Organization [facility] Address [address] [place] [address] Care Team Providers Care Street Light Servicer Supervisor Name Role Phone Walt Quintero MD Primary Care Provider Encounter Details Date Type Department Care Team (Latest Contact Info) Description 11/24/1999 Outpatient Historical [facility] Rheumatology- [facility] Geri [address] [place] [address] Harsh Kaufman MD NO ADDRESS ON FILE Depressive disorder, not elsewhere classified (Primary Dx); Rheumatism, unspecified and fibrositis; Other and unspecified nonspecific immunological findings Social History Tobacco Use Types Packs/Day Years Used Date Smoking Tobacco: Never Assessed Comments Unknown Sex and Gender Information Value Date Recorded Sex Assigned at Not on file Legal Sex Female 4:11 AM SNOW PLOW OPERATOR Gender Identity Not on file Sexual Orientation Not on file documented as of this encounter Plan of Treatment Not on file documented as of this encounter Visit Diagnoses Diagnosis Depressive disorder, not elsewhere classified- Primary Rheumatism, unspecified and fibrositis Other and unspecified nonspecific immunological findings documented in this encounter Additional Health Concerns Infection Onset Date Last Indicated Resolved Time R/O COVID-19 06/12/2020 06/12/2020 06/12/2020 5:1 3 PM SNOW PLOW OPERATOR COVID-19 06/12/2020 06/12/2020 07/12/2020 8:08 PM SNOW PLOW OPERATOR R/O COVID-19 09/16/2020 09/16/2020 09/16/2020 6:00 PM SNOW PLOW OPERATOR documented as of this encounter Care Teams Street Light Servicer Supervisor Relationship Specialty Start Date End Date Walt Quintero MD [address] [facility] [address] [place] [phone] PCP - General 07/23/05 documented as of this encounter
--- OUTSIDE RECORDS SUMMARY | 2025-07-22 07:54 | XMS_ITS | Encounter Summary ---
Author Organization [facility] Address [address] [place] [address] Care Team Providers Care Senior Care Assistant Name Role Phone Walt Quintero MD Primary Care Provider Encounter Details Date Type Department Care Team (Latest Contact Info) Description 03/15/[address] [facility] Med Services-[facility] Geri [address] [place] [address] Sachin Howard III, MD [address] [place] [address] CHEST PAIN NOS (Primary Dx); Syst lupus erythematosus Social History Tobacco Use Types Packs/Day Years Used Date Smoking Tobacco: Never Assessed Comments Unknown Sex and Gender Information Value Date Recorded Sex Assigned at Not on file Legal Sex Female 4:11 AM DIRECTOR OF RECRUITMENT AND ADMISSIONS Gender Identity Not on file Sexual Orientation Not on file documented as of this encounter Plan of Treatment Not on file documented as of this encounter Visit Diagnoses Diagnosis Chest pain, unspecified- Primary Syst lupus erythematosus Systemic lupus erythematosus documented in this encounter Additional Health Concerns Infection Onset Date Last Indicated Resolved Time R/O COVID-19 06/12/2020 06/12/2020 06/12/2020 5:13 PM DIRECTOR OF RECRUITMENT AND ADMISSIONS COVID-19 06/12/2020 06/12/2020 07/12/2020 8:08 PM DIRECTOR OF RECRUITMENT AND ADMISSIONS R/O COVID-19 09/16/2020 09/16/2020 09/16/2020 6:00 PM DIRECTOR OF RECRUITMENT AND ADMISSIONS documented as of this encounter Care Teams Senior Care Assistant Relationship Specialty Start Date End Date Walt Quintero MD [address] [facility] [address] [place] [phone] PCP - General 07/23/05 documented as of this encounter
--- OUTSIDE RECORDS SUMMARY | 2025-07-22 07:54 | XMS_ITS | Encounter Summary ---
Author Organization [facility] Address [address] [place] [address] Care Team Providers Care Athletic Agent Name Role Phone Walt Quintero MD Primary Care Provider [phone] Encounter Details Date Type Department Care Team (Latest Contact Info) Description 12/26/2002 Outpatient Historical [facility] Internal Medicine- [place] [address] [place] [address] Sachin Howard III, MD [address] [place] [address] OTHER MALAISE AND FATIGUE (Primary Dx); HYPERTENSION NOS; CHEST PAIN NOS Social History Tobacco Use Types Packs/Day Years Used Date Smoking Tobacco: Never Assessed Comments Unknown Sex and Gender Information Value Date Recorded Sex Assigned at Not on file Legal Sex Female 4:11 AM FOOD OPERATIONS MANAGER Gender Identity Not on file Sexual Orientation Not on file documented as of this encounter Plan of Treatment Not on file documented as of this encounter Visit Diagnoses Diagnosis Other malaise and fatigue- Primary Unspecified essential hypertension Chest pain, unspecified documented in this encounter Additional Health Concerns Infection Onset Date Last Indicated Resolved Time R/O COVID-19 06/12/2020 06/12/2020 06/12/2020 5:13 PM FOOD OPERATIONS MANAGER COVID-19 06/12/2020 06/12/2020 07/12/2020 8:08 PM FOOD OPERATIONS MANAGER R/O COVID-19 09/16/2020 09/16/202009/1609/16/2020 6:00 PM FOOD OPERATIONS MANAGER documented as of this encounter Care Teams Athletic Agent Relationship Specialty Start Date End Date Walt Quintero MD [address] [phone] PCP - General 07/23/05 documented as of this encounter
--- OUTSIDE RECORDS SUMMARY | 2025-07-22 07:54 | XMS_ITS | Encounter Summary ---
Author Organization [facility] Address [address] [place] [address] Care Team Providers Care Industrial Engineering Analyst Name Role Phone Walt Quintero MD Primary Care Provider Encounter Details Date Type Department Care Team (Latest Contact Info) Description 05/20/[address] [facility] Internal Medicine- [place] [address] [place] [address] Sachin Howard III, MD [address] [place] [phone] Syst lupus erythematosus (Primary Dx); Myalgia and myositis, unspecified; Painful respiration Social History Tobacco Use Types Packs/Day Years Used Date Smoking Tobacco: Never Assessed Comments Unknown Sex and Gender Information Value Date Recorded Sex Assigned at Not on file Legal Sex Female 4:11 AM SLIP FEEDER Gender Identity Not on file Sexual Orientation Not on file documented as of this encounter Plan of Treatment Not on file documented as of this encounter Visit Diagnoses Diagnosis Syst lupus erythematosus- Primary Systemic lupus erythematosus Myalgia and myositis, unspecified Mylagia and myositis, unspecified Painful respiration documented in this encounter Additional Health Concerns Infection Onset Date Last Indicated Resolved Time R/O COVID-19 06/12/2020 06/12/2020 06/12/2020 5:13 PM SLIP FEEDER COVID-19 06/12/2020 06/12/2020 07/12/2020 8:08 PM SLIP FEEDER R/O COVID-19 09/16/2020 09/16/2020 09/16/2020 6:00 PM SLIP FEEDER documented as of this encounter Care Teams Industrial Engineering Analyst Relationship Specialty Start Date End Date Walt Quintero MD [address] [facility] [address] [place] [address] PCP - General 07/23/05 documented as of this encounter
--- OUTSIDE RECORDS SUMMARY | 2025-07-22 07:54 | XMS_ITS | Encounter Summary ---
Author Organization [facility] Address [address] [place] [address] Care Team Providers Care Gis Technician Name Role Phone Walt Quintero MD Primary Care Provider [phone] Encounter Details Date Type Department Care Team (Late st Contact Info) Description 08/16/2003 Emergency [facility] Emergency Department [address] [place] [address] Quinn Perez DO NO ADDRESS ON FILE ACUTE BRONCHITIS (Primary Dx) Social History Tobacco Use Types Packs/Day Years Used Date Smoking Tobacco: Never Assessed Comments Unknown Sex and Gender Information Value Date Recorded Sex Assigned at Not on file Legal Sex Female 4:11 AM ADOBE DEVELOPER Gender Identity Not on file Sexual Orientation Not on file documented as of this encounter Plan of Treatment Not on file documented as of this encounter Visit Diagnoses Diagnosis Acute bronchitis- Primary documented in this encounter Additional Health Concerns Infection Onset Date Last Indicated Resolved Time R/O COVID-19 06/12/2020 06/12/2020 06/12/2020 5:13 PM ADOBE DEVELOPER COVID-19 06/12/2020 06/12/2020 07/12/2020 8:08 PM ADOBE DEVELOPER R/O COVID-19 09/16/2020 09/16/2020 09/16/2020 6:00 PM ADOBE DEVELOPER documented as of this encounter Care Teams Gis Technician Relationship Specialty Start Date End Date aWlt Quintero MD [address] [address] PCP - General 07/23/05 documented as of this encounter
--- OUTSIDE RECORDS SUMMARY | 2025-07-22 07:54 | XMS_ITS | Encounter Summary ---
Author Organization [facility] Address [address] [place] [address] Care Team Providers Care Hydrologist Name Role Phone Walt Quintero MD Primary Care Provider [phone] Encounter Details Date Type Department Care Team (Late st Contact Info) Description 09/23/1997 Outpatient Historical [facility] Rheumatology- [facility] [place] [address] [place] [address] Social History Tobacco Use Types Packs/Day Years Used Date Smoking Tobacco: Never Assessed Comments Unknown Sex and Gender Information Value Date Recorded Sex Assigned at Not on file Legal Sex Female 4:11 AM WEB CONTENT & SOCIAL MEDIA MANAGER Gender Identity Not on file Sexual Orientation Not on file documented as of this encounter Plan of Treatment Not on file documented as of this encounter Visit Diagnoses Not on filedocumented in this encounter Additional Health Concerns Infection Onset Date Last Indicated Resolved Time R/O COVID-19 06/12/2020 06/12/2020 06/12/2020 5:13 PM WEB CONTENT & SOCIAL MEDIA MANAGER COVID-19 06/12/2020 06/12/2020 07/12/2020 8:08 PM WEB CONTENT & SOCIAL MEDIA MANAGER R/O COVID-19 09/16/2020 09/16/2020 09/16/2020 6:00 PM WEB CONTENT & SOCIAL MEDIA MANAGER documented as of this encounter Care Teams Hydrologist Relationship Specialty Start Date End Date Walt Quintero MD [address] [place] [address] PCP - General 07/23/05 documented as of this encounter
--- OUTSIDE RECORDS SUMMARY | 2025-07-22 07:54 | XMS_ITS | Encounter Summary ---
Author Organization [facility] Address [address] [place] [address] Care Team Providers Care Residential Assistant Name Role Phone Walt Quintero MD Primary Care Provider [phone] Encounter Details Date Type Department Care Team (Latest Contact Info) Description 05/23/2000 Outpatient Historical [facility] Rheumatology- [facility] Geri [address] [place] [address] Harsh Kaufman MD NO ADDRESS ON FILE Rheumatism, unspecified and fibrositis (Primary Dx) Social History Tobacco Use Types Packs/Day Years Used Date Smoking Tobacco: Never Assessed Comments Unknown Sex and Gender Information Value Date Recorded Sex Assigned at Not on file Legal Sex Female 4:11 AM SCHEDULING ADMINISTRATOR Gender Identity Not on file Sexual Orientation Not on file documented as of this encounter Plan of Treatment Not on file documented as of this encounter Visit Diagnoses Diagnosis Rheumatism, unspecified and fibrositis- Primary documented in this encounter Additional Health Concerns Infection Onset Date Last Indicated Resolved Time R/O COVID-19 06/12/2020 06/12/2020 06/12/2020 5:13 PM SCHEDULING ADMINISTRATOR COVID-19 06/12/2020 06/12/2020 07/12/2020 8:08 PM SCHEDULING ADMINISTRATOR R/O COVID-19 09/16/2020 09/16/2020 09/16/2020 6:00 PM SCHEDULING ADMINISTRATOR documented as of this encounter Care Teams Residential Assistant Relationship Specialty Start Date End Date Walt Quintero MD [address] [address] PCP - General 07/23/05 documented as of this encounter
--- OUTSIDE RECORDS SUMMARY | 2025-07-22 07:54 | XMS_ITS | Encounter Summary ---
Author Organization [facility] Address [address] [place] [address] Care Team Providers Care Publication Distributor Name Role Phone Walt Quintero MD Primary Care Provider [phone] Encounter Details Date Type Department Care Team (Latest Contact Info) Description 10/22/2002 Outpatient Historical [facility] Internal Medicine- [place] [address] [place] [address] Sachin Howard III, MD [address] [place] [address] JOINT PAIN-PELVIS (Primary Dx); DIARRHEA NOS Social History Tobacco Use Types Packs/Day Years Used Date Smoking Tobacco: Never Assessed Comments Unknown Sex and Gender Information Value Date Recorded Sex Assigned at Not on file Legal Sex Female 4:11 AM CAR CONDITIONER Gender Identity Not on file Sexual Orientation Not on file documented as of this encounter Plan of Treatment Not on file documented as of this encounter Visit Diagnoses Diagnosis Pain in joint, pelvic region and thigh- Primary Diarrhea documented in this encounter Additional Health Concerns Infection Onset Date Last Indicated Resolved Time R/O COVID-19 06/12/2020 06/12/2020 06/12/2020 5:13 PM CAR CONDITIONER COVID-19 06/12/2020 06/12/2020 07/12/2020 8:08 PM CAR CONDITIONER R/O COVID-19 09/16/2020 09/16/2020 09/16/2020 6:00 PM CAR CONDITIONER documented as of this encounter Care Teams Publication Distributor Relationship Specialty Start Date End Date Walt Quintero MD [address] [facility] [address] [place] [phone] PCP - General 07/23/05 documented as of this encounter
--- OUTSIDE RECORDS SUMMARY | 2025-07-22 07:54 | XMS_ITS | Encounter Summary ---
Author Organization [facility] Address [address] [place] [address] Care Team Providers Care Coal Cager Name Role Phone Walt Quintero MD Primary Care Provider [phone] Encounter Details Date Type Department Care Team (Late st Contact Info) Description 05/23/2000 Outpatient Historical [facility] Imaging Services-[facility] [address] [place] [address] Social History Tobacco Use Types Packs/Day Years Used Date Smoking Tobacco: Never Assessed Comments Unknown Sex and Gender Information Value Date Recorded Sex Assigned at Not on file Legal Sex Female 4:11 AM METAL TRIM ERECTOR Gender Identity Not on file Sexual Orientation Not on file documented as of this encounter Plan of Treatment Not on file documented as of this encounter Visit Diagnoses Not on filedocumented in this encounter Additional Health Concerns Infection Onset Date Last Indicated Resolved Time R/O COVID-19 06/12/2020 06/12/2020 06/12/2020 5:13 PM METAL TRIM ERECTOR COVID-19 06/12/2020 06/12/2020 07/12/2020 8:08 PM METAL TRIM ERECTOR R/O COVID-19 09/16/2020 09/16/2020 09/16/2020 6:00 PM METAL TRIM ERECTOR documented as of this encounter Care Teams Coal Cager Relationship Specialty Start Date End Date Walt Quintero MD [address] [place] [address] PCP - General 07/23/05 documented as of this encounter
--- OUTSIDE RECORDS SUMMARY | 2025-07-22 07:54 | XMS_ITS | Encounter Summary ---
Author Organization [facility] Address [address] [place] [address] Care Team Providers Care Meat Stuffer Name Role Phone Walt Quintero MD Primary Care Provider [phone] Encounter Details Date Type Department Care Team (Latest Contact Info) Description 01/30/2003 Outpatient Historical [facility] Internal Medicine- [place] [address] [place] [address] Sachin Howard III, MD [address] [place] [address] ACUTE SINUSITIS NOS (Primary Dx); URIN TRACT INFECTION NOS Social History Tobacco Use Types Packs/Day Years Used Date Smoking Tobacco: Never Assessed Comments Unknown Sex and Gender Information Value Date Recorded Sex Assigned at Not on file Legal Sex Female 4:11 AM ART APPRAISER Gender Identity Not on file Sexual Orientation Not on file documented as of this encounter Plan of Treatment Not on file documented as of this encounter Visit Diagnoses Diagnosis Acute sinusitis, unspecified- Primary Urinary tract infection, site not specified documented in this encounter Additional Health Concerns Infection Onset Date Last Indicated Resolved Time R/O COVID-19 06/12/2020 06/12/2020 06/12/2020 5:13 PM ART APPRAISER COVID-19 06/12/2020 06/12/2020 07/12/2020 8:08 PM ART APPRAISER R/O COVID-19 09/16/2020 09/16/2020 09/16/2020 6:00 PM ART APPRAISER documented as of this encounter Care Teams Meat Stuffer Relationship Specialty Start Date End Date Walt Quintero MD [address] [facility] [address] [place] [phone] PCP - General 07/23/05 documented as of this encounter
--- OUTSIDE RECORDS SUMMARY | 2025-07-22 07:54 | XMS_ITS | Encounter Summary ---
Author Organization [facility] Address [address] [place] [address] Care Team Providers Care Assistant Professor Surgical Technology Name Role Phone Walt Quintero MD Primary Care Provider [phone] Encounter Details Date Type Department Care Team (Latest Contact Info) Description 12/23/1999 Outpatient Historical [facility] Rheumatology- [facility] Geri [address] [place] [address] Harsh Kaufman MD NO ADDRESS ON FILE Depressive disorder, not elsewhere classified (Primary Dx) Social History Tobacco Use Types Packs/Day Years Used Date Smoking Tobacco: Never Assessed Comments Unknown Sex and Gender Information Value Date Recorded Sex Assigned at Not on file Legal Sex Female 4:[address] OF [address] SUPERINTENDENT Gender Identity Not on file Sexual Orientation Not on file documented as of this encounter Plan of Treatment Not on file documented as of this encounter Visit Diagnoses Diagnosis Depressive disorder, not elsewhere classified- Primary documented in this encounter Additional Health Concerns Infection Onset Date Last Indicated Resolved Time R/O COVID-19 06/12/2020 06/12/2020 06/12/2020 5:[address] SUPERINTENDENT COVID-19 06/12/2020 06/12/2020 07/12/2020 8:[address] SUPERINTENDENT R/O COVID-19 09/16/2020 09/16/2020 09/16/2020 6:[address] SUPERINTENDENT documented as of this encounter Care Teams Assistant Professor Surgical Technology Relationship Specialty Start Date End Date Walt Quintero MD [address] [address] PCP - General 07/23/05 documented as of this encounter
--- OUTSIDE RECORDS SUMMARY | 2025-07-22 07:54 | XMS_ITS | Encounter Summary ---
Author Organization [facility] Address [address] [place] [address] Care Team Providers Care Supervisor Stone Name Role Phone Walt Quintero MD Primary Care Provider [phone] Encounter Details Date Type Department Care Team (Late st Contact Info) Description 01/03/2003 Outpatient Historical [facility] Cardiology Ancillary Services-[place] [address] [place] [address] Amando Glynn MD [address] [facility] [address] [place] [address] PRECORDIAL PAIN (Primary Dx) Social History Tobacco Use Types Packs/Day Years Used Date Smoking Tobacco: Never Assessed Comments Unknown Sex and Gender Information Value Date Recorded Sex Assigned at Not on file Legal Sex Female 4:11 AM EVALUATION MANAGER Gender Identity Not on file Sexual Orientation Not on file documented as of this encounter Plan of Treatment Not on file documented as of this encounter Visit Diagnoses Diagnosis Precordial pain- Primary documented in this encounter Additional Health Concerns Infection Onset Date Last Indicated Resolved Time R/O COVID-19 06/12/2020 06/12/2020 06/12/2020 5:13 PM EVALUATION MANAGER COVID-19 06/12/2020 06/12/2020 07/12/2020 8:08 PM EVALUATION MANAGER R/O COVID-19 09/16/2020 09/16/2020 09/16/2020 6:00 PM EVALUATION MANAGER documented as of this encounter Care Teams Supervisor Stone Relationship Specialty Start Date End Date Walt Quintero MD [address] [facility] [address] [place] [phone] PCP - General 07/23/05 documented as of this encounter
--- OUTSIDE RECORDS SUMMARY | 2025-07-22 07:55 | XMS_ITS | Encounter Summary ---
Author Organization [facility] Address [address] [place] [address] Care Team Providers Care Telecommunications Operator Name Role Phone Walt Quintero MD Primary Care Provider [phone] Encounter Details Date Type Department Care Team (Latest Contact Info) Description 07/23/2005 Outpatient Historical [facility] Imaging Services [facility] [address] [facility] [place] [address] Walt Quintero MD [address] 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 [address] [place] [phone] PCP - General 07/23/05 documented as of this encounter
--- OUTSIDE RECORDS SUMMARY | 2025-07-22 07:55 | XMS_ITS | Encounter Summary ---
Author Organization [facility] Address [address] [place] [address] Care Team Providers Care [employer] Hazmat Tanker Driver Name Role Phone Walt Quintero MD Primary Care Provider [phone] Encounter Details Date Type Department Care Team (Latest Contact Info) Description 07/22/2005 Outpatient [facility] [address] [place] [phone] Walt Quintero MD [address] [facility] [address] [place] [address] TENSION HEADACHE (Primary Dx); CERVICALGIA Social History Tobacco Use Types Packs/Day Years Used Date Smoking Tobacco: Never Assessed Comments Unknown Sex and Gender Information Value Date Recorded Sex Assigned at Not on file Legal Sex Female 4:11 AM ORNAMENTAL PLASTER STICKER Gender Identity Not on file Sexual Orientation Not on file documented as of this encounter Plan of Treatment Not on file documented as of this encounter Visit Diagnoses Diagnosis Tension headache- Primary Cervicalgia documented in this encounter Additional Health Concerns Infection Onset Date Last Indicated Resolved Time R/O COVID-19 06/12/2020 06/12/2020 06/12/2020 5:13 PM ORNAMENTAL PLASTER STICKER COVID-19 06/12/2020 06/12/2020 07/12/2020 8:08 PM ORNAMENTAL PLASTER STICKER R/O COVID-19 09/16/2020 09/16/2020 09/16/2020 6:00 PM ORNAMENTAL PLASTER STICKER documented as of this encounter Care Teams [employer] Hazmat Tanker Driver Relationship Specialty Start Date End Date Walt Quintero MD [address] [phone] PCP - General 07/23/05 documented as of this encounter
--- OUTSIDE RECORDS SUMMARY | 2025-07-22 07:55 | XMS_ITS | Encounter Summary ---
Author Organization [facility] Address [address] [place] [address] Care Team Providers Care Sheet Metal Layout Mechanic Name Role Phone Walt Quintero MD Primary Care Provider Encounter Details Date Type Department Care Team (Late st Contact Info) Description 09/01/2005 Outpatient [facility] Social History Tobacco Use Types Packs/Day Years Used Date Smoking Tobacco: Never Assessed Comments Unknown Sex and Gender Information Value Date Recorded Sex Assigned at Not on file Legal Sex Female 4:11 AM DIXONAC OPERATOR Gender Identity Not on file Sexual Orientation Not on file documented as of this encounter Plan of Treatment Not on file documented as of this encounter Visit Diagnoses Not on filedocumented in this encounter Additional Health Concerns Infection Onset Date Last Indicated Resolved Time R/O COVID-19 06/12/2020 06/12/2020 06/12/2020 5:13 PM DIXONAC OPERATOR COVID-19 06/12/2020 06/12/2020 07/12/2020 8:08 PM DIXONAC OPERATOR R/O COVID-19 09/16/2020 09/16/2020 09/16/2020 6:00 PM DIXONAC OPERATOR documented as of this encounter Care Teams Sheet Metal Layout Mechanic Relationship Specialty Start Date End Date Walt Quintero MD [address] [place] [phone] PCP - General 07/23/05 documented as of this encounter
--- OUTSIDE RECORDS SUMMARY | 2025-07-22 07:55 | XMS_ITS | Encounter Summary ---
Author Organization [facility] Address [address] [place] [address] Care Team Providers Care Loading Dock Helper Name Role Phone Walt Quintero MD Primary Care Provider [phone] Encounter Details Date Type Department Care Team (Latest Contact Info) Description 08/20/2003 Outpatient Historical [facility] Medicine- [place] [address] [place] [phone] Amber Oakes MD NO ADDRESS ON FILE ACUTE BRONCHITIS (Primary Dx); DEPRESSIVE DISORDER NEC; NONORGANIC SLEEP DIS NOS; IRRITABLE COLON Social History Tobacco Use Types Packs/Day Years Used Date Smoking Tobacco: Never Assessed Comments Unknown Sex and Gender Information Value Date Recorded Sex Assigned at Not on file Legal Sex Female 4:11 AM PHOTOGRAPHERS' MODEL Gender Identity Not on file Sexual Orientation Not on file documented as of this encounter Plan of Treatment Not on file documented as of this encounter Visit Diagnoses Diagnosis Acute bronchitis- Primary Depressive disorder, not elsewhere classified Nonorganic sleep disorder, unspecified Irritable bowel syndrome documented in this encounter Additional Health Concerns Infection Onset Date Last Indicated Resolved Time R/O COVID-19 06/12/2020 06/12/2020 06/12/2020 5:13 PM PHOTOGRAPHERS' MODEL COVID-19 06/12/2020 06/12/2020 07/12/2020 8:08 PM PHOTOGRAPHERS' MODEL R/O COVID-19 09/16/2020 09/16/2020 09/16/2020 6:00 PM PHOTOGRAPHERS' MODEL documented as of this encounter Care Teams Loading Dock Helper Relationship Specialty Start Date End Date Walt Quintero MD [address] [facility] [address] [place] [address] PCP - General 07/23/05 documented as of this encounter
--- OUTSIDE RECORDS SUMMARY | 2025-07-22 07:55 | XMS_ITS | Encounter Summary ---
Author Organization [facility] Address [address] [place] [address] Care Team Providers Care Account Information Clerk Name Role Phone Walt Quintero MD Primary Care Provider [phone] Encounter Details Date Type Department Care Team (Late st Contact Info) Description 08/26/2005 Outpatient [facility] Social History Tobacco Use Types Packs/Day Years Used Date Smoking Tobacco: Never Assessed Comments Unknown Sex and Gender Information Value Date Recorded Sex Assigned at Not on file Legal Sex Female 4:11 AM MIXER DIAMOND POWDER Gender Identity Not on file Sexual Orientation Not on file documented as of this encounter Plan of Treatment Not on file documented as of this encounter Visit Diagnoses Not on filedocumented in this encounter Additional Health Concerns Infection Onset Date Last Indicated Resolved Time R/O COVID-19 06/12/2020 06/12/2020 06/12/2020 5:13 PM MIXER DIAMOND POWDER COVID-19 06/12/2020 06/12/2020 07/12/2020 8:08 PM MIXER DIAMOND POWDER R/O COVID-19 09/16/2020 09/16/2020 09/16/2020 6:00 PM MIXER DIAMOND POWDER documented as of this encounter Care Teams Account Information Clerk Relationship Specialty Start Date End Date Walt Quintero MD [address] [place] [address] PCP - General 07/23/05 documented as of this encounter
--- OUTSIDE RECORDS SUMMARY | 2025-07-22 07:55 | XMS_ITS | Encounter Summary ---
Author Organization [facility] Address [address] [place] [address] Care Team Providers Care Organic Chemistry Teacher Name Role Phone Walt Quintero MD Primary Care Provider [phone] Encounter Details Date Type Department Care Team (Latest Contact Info) Description 03/24/2004 Outpatient Historical [facility] Medicine- [place] [address] [place] [address] Dimitrios Greer MD [address] [place] [address] ANXIETY STATE NOS (Primary Dx); DEPRESSIVE DISORDER NEC Social History Tobacco Use Types Packs/Day Years Used Date Smoking Tobacco: Never Assessed Comments Unknown Sex and Gender Information Value Date Recorded Sex Assigned at Not on file Legal Sex Female 4:11 AM HITCHER Gender Identity Not on file Sexual Orientation Not on file documented as of this encounter Plan of Treatment Not on file documented as of this encounter Visit Diagnoses Diagnosis Anxiety state, unspecified- Primary Depressive disorder, not elsewhere classified documented in this encounter Additional Health Concerns Infection Onset Date Last Indicated Resolved Time R/O COVID-19 06/12/2020 06/12/2020 06/12/2020 5:13 PM HITCHER COVID-19 06/12/2020 06/12/2020 07/12/2020 8:08 PM HITCHER R/O COVID-19 09/16/2020 09/16/2020 09/16/2020 6:00 PM HITCHER documented as of this encounter Care Teams Organic Chemistry Teacher Relationship Specialty Start Date End Date Walt Quintero MD [address] [facility] [address] [place] [phone] PCP - General 07/23/05 documented as of this encounter
--- OUTSIDE RECORDS SUMMARY | 2025-07-22 07:55 | XMS_ITS | Encounter Summary ---
Author Organization [facility] Address [address] [place] [address] Care Team Providers Care Dressmaker Garment Fitter Name Role Phone Walt Quintero MD Primary Care Provider Encounter Details Date Type Department Care Team (Late st Contact Info) Description 06/20/[address] [facility]- [facility] [place] [address] [place] [phone] Carmen France MD [address] [address] Social History Tobacco Use Types Packs/Day Years Used Date Smoking Tobacco: Never Assessed Comments Unknown Sex and Gender Information Value Date Recorded Sex Assigned at Not on file Legal Sex Female 4:11 AM BOTTLING LINE OPERATOR Gender Identity Not on file Sexual Orientation Not on file documented as of this encounter Plan of Treatment Not on file documented as of this encounter Visit Diagnoses Not on filedocumented in this encounter Additional Health Concerns Infection Onset Date Last Indicated Resolved Time R/O COVID-19 06/12/2020 06/12/2020 06/12/2020 5:13 PM BOTTLING LINE OPERATOR COVID-19 06/12/2020 06/12/2020 07/12/2020 8:08 PM BOTTLING LINE OPERATOR R/O COVID-19 09/16/2020 09/16/2020 09/16/2020 6:00 PM BOTTLING LINE OPERATOR documented as of this encounter Care Teams Dressmaker Garment Fitter Relationship Specialty Start Date End Date Walt Quintero MD [address] [facility] [address] [place] [address] PCP - General 07/23/05 documented as of this encounter
--- OUTSIDE RECORDS SUMMARY | 2025-07-22 07:55 | XMS_ITS | Encounter Summary ---
Author Organization [facility] Address [address] [place] [address] Care Team Providers Care Supervisor Heading Name Role Phone Walt Quintero MD Primary Care Provider Encounter Details Date Type Department Care Team (Latest Contact Info) Description 04/08/2005 Outpatient Historical [facility] Medicine- [place] [address] [place] [phone] Dimitrios Greer MD [address] [place] [address] HYPERTENSION NOS (Primary Dx); CERVICALGIA Social History Tobacco Use Types Packs/Day Years Used Date Smoking Tobacco: Never Assessed Comments Unknown Sex and Gender Information Value Date Recorded Sex Assigned at Not on file Legal Sex Female 4:11 AM PIERCE AND SHAVE PRESS OPERATOR Gender Identity Not on file Sexual Orientation Not on file documented as of this encounter Plan of Treatment Not on file documented as of this encounter Visit Diagnoses Diagnosis Unspecified essential hypertension- Primary Cervicalgia documented in this encounter Additional Health Concerns Infection Onset Date Last Indicated Resolved Time R/O COVID-19 06/12/2020 06/12/2020 06/12/2020 5:13 PM PIERCE AND SHAVE PRESS OPERATOR COVID-19 06/12/2020 06/12/2020 07/12/2020 8:08 PM PIERCE AND SHAVE PRESS OPERATOR R/O COVID-19 09/16/2020 09/16/2020 09/16/2020 6:00 PM PIERCE AND SHAVE PRESS OPERATOR documented as of this encounter Care Teams Supervisor Heading Relationship Specialty Start Date End Date Walt Quintero MD [address] [phone] PCP - General 07/23/05 documented as of this encounter
--- OUTSIDE RECORDS SUMMARY | 2025-07-22 07:55 | XMS_ITS | Encounter Summary ---
Author Organization [facility] Address [address] [place] [address] Care Team Providers Care Tile Conduit Layer Name Role Phone Walt Quintero MD Primary Care Provider [phone] Encounter Details Date Type Department Care Team (Late st Contact Info) Description 10/08/2004 Outpatient Historical [facility] [place] [address] [place] [address] Social History Tobacco Use Types Packs/Day Years Used Date Smoking Tobacco: Never Assessed Comments Unknown Sex and Gender Information Value Date Recorded Sex Assigned at Not on file Legal Sex Female 4:11 AM DENTAL PRACTICE MANAGER Gender Identity Not on file Sexual Orientation Not on file documented as of this encounter Plan of Treatment Not on file documented as of this encounter Visit Diagnoses Not on filedocumented in this encounter Additional Health Concerns Infection Onset Date Last Indicated Resolved Time R/O COVID-19 06/12/2020 06/12/2020 06/12/2020 5:13 PM DENTAL PRACTICE MANAGER COVID-19 06/12/2020 06/12/2020 07/12/2020 8:08 PM DENTAL PRACTICE MANAGER R/O COVID-19 09/16/2020 09/16/2020 09/16/2020 6:00 PM DENTAL PRACTICE MANAGER documented as of this encounter Care Teams Tile Conduit Layer Relationship Specialty Start Date End Date Walt Quintero MD [address] [place] [address] PCP - General 07/23/05 documented as of this encounter
--- OUTSIDE RECORDS SUMMARY | 2025-07-22 07:55 | XMS_ITS | Encounter Summary ---
Author Organization [facility] Address [address] [place] [address] Care Team Providers Care Design Maker Name Role Phone Walt Quintero MD Primary Care Provider [phone] Encounter Details Date Type Department Care Team (Latest Contact Info) Description 06/19/2004 Outpatient Historical [facility]- [facility] [address] [place] [phone] Carmen France MD [address] [address] NONINFEC GASTROENTERIT NEC (Primary Dx); HYPOVOLEMIA Social History Tobacco Use Types Packs/Day Years Used Date Smoking Tobacco: Never Assessed Comments Unknown Sex and Gender Information Value Date Recorded Sex Assigned at Not on file Legal Sex Female 4:11 AM AGRICULTURE DEPARTMENT CHAIR Gender Identity Not on file Sexual Orientation Not on file documented as of this encounter Plan of Treatment Not on file documented as of this encounter Visit Diagnoses Diagnosis Other and unspecified noninfectious gastroenteritis and colitis(558.9)- Primary Other and unspecified noninfectious gastroenteritis and colitis Volume depletion documented in this encounter Additional Health Concerns Infection Onset Date Last Indicated Resolved Time R/O COVID-19 06/12/2020 06/12/2020 06/12/2020 5:13 PM AGRICULTURE DEPARTMENT CHAIR COVID-19 06/12/2020 06/12/2020 07/12/2020 8:08 PM AGRICULTURE DEPARTMENT CHAIR R/O COVID-19 09/16/2020 09/16/2020 09/16/2020 6:00 PM AGRICULTURE DEPARTMENT CHAIR documented as of this encounter Care Teams Design Maker Relationship Specialty Start Date End Date Walt Quintero MD [address] [facility] [address] [place] [address] PCP - General 07/23/05 documented as of this encounter
--- OUTSIDE RECORDS SUMMARY | 2025-07-22 07:55 | XMS_ITS | Encounter Summary ---
Author Organization [facility] Address [address] [place] [address] Care Team Providers Care Imager Name Role Phone Walt Quintero MD Primary Care Provider [phone] Encounter Details Date Type Department Care Team (Late st Contact Info) Description 09/16/2005 Outpatient Historical [facility] Social History Tobacco Use Types Packs/Day Years Used Date Smoking Tobacco: Never Assessed Comments Unknown Sex and Gender Information Value Date Recorded Sex Assigned at Not on file Legal Sex Female 4:11 AM YARD CONDUCTOR Gender Identity Not on file Sexual Orientation Not on file documented as of this encounter Plan of Treatment Not on file documented as of this encounter Visit Diagnoses Not on filedocumented in this encounter Additional Health Concerns Infection Onset Date Last Indicated Resolved Time R/O COVID-19 06/12/2020 06/12/2020 06/12/2020 5:13 PM YARD CONDUCTOR COVID-19 06/12/2020 06/12/2020 07/12/2020 8:08 PM YARD CONDUCTOR R/O COVID-19 09/16/2020 09/16/2020 09/16/2020 6:00 PM YARD CONDUCTOR documented as of this encounter Care Teams Imager Relationship Specialty Start Date End Date Walt Quintero MD [address] [place] [phone] PCP - General 07/23/05 documented as of this encounter
--- OUTSIDE RECORDS SUMMARY | 2025-07-22 07:55 | XMS_ITS | Encounter Summary ---
Author Organization [facility] Address [address] [place] [address] Care Team Providers Care Fire Protection Equipment Technician Name Role Phone Walt Quintero MD Primary Care Provider [phone] Encounter Details Date Type Department Care Team (Latest Contact Info) Description 09/03/2004 Outpatient Historical [facility] Medicine- [place] [address] [place] [phone] Dimitrios Greer MD [address] [place] [address] ACUTE URI NOS (Primary Dx); ANXIETY STATE NOS; DEPRESSIVE DISORDER NEC; Dietary surveil/estate planning counselor Social History Tobacco Use Types Packs/Day Years Used Date Smoking Tobacco: Never Assessed Comments Unknown Sex and Gender Information Value Date Recorded Sex Assigned at Not on file Legal Sex Female 4:11 AM OUTDOOR STUDIES PROFESSOR Gender Identity Not on file Sexual Orientation Not on file documented as of this encounter Plan of Treatment Not on file documented as of this encounter Visit Diagnoses Diagnosis Acute upper respiratory infections of unspecified site- Primary Anxiety state, unspecified Depressive disorder, not elsewhere classified Dietary surveil/estate planning counselor Dietary surveillance and counseling documented in this encounter Additional Health Concerns Infection Onset Date Last Indicated Resolved Time R/O COVID-19 06/12/2020 06/12/2020 06/12/2020 5:13 PM OUTDOOR STUDIES PROFESSOR COVID-19 06/12/2020 06/12/2020 07/12/2020 8:08 PM OUTDOOR STUDIES PROFESSOR R/O COVID-19 09/16/2020 09/16/2020 09/16/2020 6:00 PM OUTDOOR STUDIES PROFESSOR documented as of this encounter Care Teams Fire Protection Equipment Technician Relationship Specialty Start Date End Date Walt Quintero MD [address] [facility] [address] [place] [address] PCP - General 07/23/05 documented as of this encounter
--- OUTSIDE RECORDS SUMMARY | 2025-07-22 07:55 | XMS_ITS | Encounter Summary ---
Author Organization [facility] Address [address] [place] [address] Care Team Providers Care Civil Structural Engineer Name Role Phone Walt Quintero MD Primary Care Provider [phone] Encounter Details Date Type Department Care Team (Latest Contact Info) Description 12/07/2005 Outpatient [facility] [place] [place] [address] Herve Chamberlain MD [address] [place] [address] Acute Upper Respiratory Infections of Unspecified Site (Primary Dx); Tobacco Use Disorder Social History Tobacco Use Types Packs/Day Years Used Date Smoking Tobacco: Never Assessed Comments Unknown Sex and Gender Information Value Date Recorded Sex Assigned at Not on file Legal Sex Female 4:11 AM VICE PRESIDENT OF FINANCE Gender Identity Not on file Sexual Orientation Not on file documented as of this encounter Plan of Treatment Not on file documented as of this encounter Visit Diagnoses Diagnosis Acute upper respiratory infections of unspecified site- Primary Tobacco use disorder documented in this encounter Additional Health Concerns Infection Onset Date Last Indicated Resolved Time R/O COVID-19 06/12/2020 06/12/2020 06/12/2020 5:13 PM VICE PRESIDENT OF FINANCE COVID-19 06/12/2020 06/12/2020 07/12/2020 8:08 PM VICE PRESIDENT OF FINANCE R/O COVID-19 09/16/2020 09/16/2020 09/16/2020 6:00 PM VICE PRESIDENT OF FINANCE documented as of this encounter Care Teams Civil Structural Engineer Relationship Specialty Start Date End Date Walt Quintero MD [address] [facility] [address] [place] [phone] PCP - General 07/23/05 documented as of this encounter
--- OUTSIDE RECORDS SUMMARY | 2025-07-22 07:55 | XMS_ITS | Encounter Summary ---
Author Organization [facility] Address [address] [place] [address] Care Team Providers Care Medical Case Manager Name Role Phone Walt Quintero MD Primary Care Provider [phone] Encounter Details Date Type Department Care Team (Latest Contact Info) Description 08/11/2004 Outpatient Historical [facility] Medicine- [place] [address] [place] [address] Dimitrios Greer MD [address] [place] [address] HYPERTENSION NOS (Primary Dx); HYPERLIPIDEMIA NEC/NOS; ANXIETY STATE NOS; DEPRESSIVE DISORDER NEC Social History Tobacco Use Types Packs/Day Years Used Date Smoking Tobacco: Never Assessed Comments Unknown Sex and Gender Information Value Date Recorded Sex Assigned at Not on file Legal Sex Female 4:11 AM PROFESSOR SCULPTURE Gender Identity Not on file Sexual Orientation Not on file documented as of this encounter Plan of Treatment Not on file documented as of this encounter Visit Diagnoses Diagnosis Unspecified essential hypertension- Primary Other and unspecified hyperlipidemia Anxiety state, unspecified Depressive disorder, not elsewhere classified documented in this encounter Additional Health Concerns Infection Onset Date Last Indicated Resolved Time R/O COVID-19 06/12/2020 06/12/2020 06/12/2020 5:13 PM PROFESSOR SCULPTURE COVID-19 06/12/2020 06/12/2020 07/12/2020 8:08 PM PROFESSOR SCULPTURE R/O COVID-19 09/16/2020 09/16/2020 09/16/2020 6:00 PM PROFESSOR SCULPTURE documented as of this encounter Care Teams Medical Case Manager Relationship Specialty Start Date End Date Walt Quintero MD [address] [address] PCP - General 07/23/05 documented as of this encounter
--- OUTSIDE RECORDS SUMMARY | 2025-07-22 07:55 | XMS_ITS | Encounter Summary ---
Author Organization [facility] Address [address] [place] [address] Care Team Providers Care Bar Helper Name Role Phone Walt Quintero MD Primary Care Provider [phone] Encounter Details Date Type Department Care Team (Latest Contact Info) Description 09/08/2005 Outpatient [facility] [address] [place] [phone] Jr Blue MD NO ADDRESS ON FILE CERVICALGIA (Primary Dx); Cervical spinal stenosis Social History Tobacco Use Types Packs/Day Years Used Date Smoking Tobacco: Never Assessed Comments Unknown Sex and Gender Information Value Date Recorded Sex Assigned at Not on file Legal Sex Female 4:11 AM MANAGER MULTIMEDIA Gender Identity Not on file Sexual Orientation Not on file documented as of this encounter Plan of Treatment Not on file documented as of this encounter Visit Diagnoses Diagnosis Cervicalgia- Primary Cervical spinal stenosis Spinal stenosis in cervical region documented in this encounter Additional Health Concerns Infection Onset Date Last Indicated Resolved Time R/O COVID-19 06/12/2020 06/12/2020 06/12/2020 5:13 PM MANAGER MULTIMEDIA COVID-19 06/12/2020 06/12/2020 07/12/2020 8:08 PM MANAGER MULTIMEDIA R/O COVID-19 09/16/2020 09/16/2020 09/16/2020 6:00 PM MANAGER MULTIMEDIA documented as of this encounter Care Teams Bar Helper Relationship Specialty Start Date End Date Walt Quintero MD [address] [address] PCP - General 07/23/05 documented as of this encounter
--- OUTSIDE RECORDS SUMMARY | 2025-07-22 07:55 | XMS_ITS | Encounter Summary ---
Author Organization [facility] Address [address] [place] [address] Care Team Providers Care Neurology Hospitalist Name Role Phone Walt Quintero MD Primary Care Provider [phone] Encounter Details Date Type Department Care Team (Latest Contact Info) Description 10/23/2003 Outpatient Historical [facility] Imaging Services[facility] [place] [address] [place] [address] Wilver Forrester, DO [address] [place] [address] RESPIRATORY ABNORM NEC (Primary Dx) Social History Tobacco Use Types Packs/Day Years Used Date Smoking Tobacco: Never Assessed Comments Unknown Sex and Gender Information Value Date Recorded Sex Assigned at Not on file Legal Sex Female 4:11 AM CNC ROUTER OPERATOR Gender Identity Not on file Sexual Orientation Not on file documented as of this encounter Plan of Treatment Not on file documented as of this encounter Visit Diagnoses Diagnosis Other dyspnea and respiratory abnormality- Primary documented in this encounter Additional Health Concerns Infection Onset Date Last Indicated Resolved Time R/O COVID-19 06/12/2020 06/12/2020 06/12/2020 5:13 PM CNC ROUTER OPERATOR COVID-19 06/12/2020 06/12/2020 07/12/2020 8:08 PM CNC ROUTER OPERATOR R/O COVID-19 09/16/2020 09/16/2020 09/16/2020 6:00 PM CNC ROUTER OPERATOR documented as of this encounter Care Teams Neurology Hospitalist Relationship Specialty Start Date End Date Walt Quintero MD [address] [facility] [address] [place] [phone] PCP - General 07/23/05 documented as of this encounter
--- OUTSIDE RECORDS SUMMARY | 2025-07-22 07:55 | XMS_ITS | Encounter Summary ---
Author Organization [facility] Address [address] [place] [address] Care Team Providers Care Office Mail Clerk Name Role Phone Walt Quintero MD Primary Care Provider [phone] Encounter Details Date Type Department Care Team (Latest Contact Info) Description 04/14/2001 Outpatient Historical [facility] Internal Medicine- [place] [address] [place] [address] Sachin Howard III, MD [address] [place] [address] Allergic rhinitis, cause unspecified (Primary Dx); Headache(784.0) Social History Tobacco Use Types Packs/Day Years Used Date Smoking Tobacco: Never Assessed Comments Unknown Sex and Gender Information Value Date Recorded Sex Assigned at Not on file Legal Sex Female 4:11 AM JOB SITE SUPERINTENDENT Gender Identity Not on file Sexual Orientation Not on file documented as of this encounter Plan of Treatment Not on file documented as of this encounter Visit Diagnoses Diagnosis Allergic rhinitis, cause unspecified- Primary Headache(784.0) Headache documented in this encounter Additional Health Concerns Infection Onset Date Last Indicated Resolved Time R/O COVID-19 06/12/2020 06/12/2020 06/12/2020 5:13 PM JOB SITE SUPERINTENDENT COVID-19 06/12/2020 06/12/2020 07/12/2020 8:08 PM JOB SITE SUPERINTENDENT R/O COVID-19 09/16/2020 09/16/202009/1609/16/2020 6:00 PM JOB SITE SUPERINTENDENT documented as of this encounter Care Teams Office Mail Clerk Relationship Specialty Start Date End Date Walt Quintero MD [address] [phone] PCP - General 07/23/05 documented as of this encounter
--- OUTSIDE RECORDS SUMMARY | 2025-07-22 07:55 | XMS_ITS | Encounter Summary ---
Author Organization [facility] Address [address] [place] [address] Care Team Providers Care Hydraulic Operator Name Role Phone Walt Quintero MD Primary Care Provider Encounter Details Date Type Department Care Team (Late st Contact Info) Description 12/23/2004 Outpatient Historical [facility] Rosalio Jeffers Jr., MD NO ADDRESS ON FILE Kayce Squires MD [address] [place] [address] CHEST PAIN NEC (Primary Dx) Social History Tobacco Use Types Packs/Day Years Used Date Smoking Tobacco: Never Assessed Comments Unknown Sex and Gender Information Value Date Recorded Sex Assigned at Not on file Legal Sex Female 4:11 AM BOXING AND PRESSING SUPERVISOR Gender Identity Not on file Sexual Orientation Not on file documented as of this encounter Plan of Treatment Not on file documented as of this encounter Procedures Procedure Name Priority Date/Time Associated Diagnosis Comments CARDIAC ENZYMES Routine 12/23/2004 2:24 AM CDT LIPID PANEL Routine 12/23/2004 2:24 AM CDT CARDIAC ENZYMES Routine 12/22/2004 8:32 PM CDT CBC WITH DIFFERENTIAL Routine 12/22/2004 8:32 PM CDT PTT Routine 12/22/2004 8:32 PM CDT PROTIME-INR Routine 12/22/2004 8:32 PM CDT ETHANOL LEVEL Routine 12/22/2004 8:32 PM CDT BASIC METABOLIC PANEL Routine 12/22/2004 8:32 PM CDT documented in this encounter Results * LIPID PANEL (12/23/2004 2:24 AM CDT) CHOLESTEROL 177 75 - 200 mg/dL INTERFACE SYSTEM TRIGLYCERIDE 162 0 - 168 mg/dL INTERFACE SYSTEM HDL 54 40 - 60 mg/dL INTERFACE SYSTEM CALCULATED TOTAL CHOLESTEROL TO HDL RATIO 3.28 3.27 - 4.44 INTERFACE SYSTEM LDL CALCULATED 91 0 - 130 mg/dL INTERFACE SYSTEM 12/23/2004 2:24 AM CDT us Kayce Squires MD CHEMISTRY ORDERABLES Ankita l Result Performing Organization Address City/[facility] de Phone Number INTERFACE SYSTEM Refer to clinic/hospital department * CARDIAC ENZYMES (12/23/2004 2:24 AM CDT) CKMB <0.2 0.0 - 5.0 ng/mL INTERFACE SYSTEM Comment: As of 04 at 14:30 [facility] has changed the methodology for CK-MB and with this change the reference range has changed from 0-5.5 ng/ml to 0-5.0 ng/ml TROPONIN I <0.1 0.0 - 1.5 ng/mL INTERFACE SYSTEM Comment: As of 04 at 14:30 [facility] has changed the methodology for Troponin but the reference range of 1.5 ng/ml has remained the same. 12/23/2004 2:24 AM CDT us Juan Mejia MD CHEMISTRY ORDERABLES Final Resul t Performing Organization Address City/[facility] Co de Phone Number INTERFACE SYSTEM Refer to clinic/hospital department * (ABNORMAL) ETHANOL LEVEL (12/22/2004 8:32 PM CDT) ETHANOL 65(H) <=10 mg/dL INTERFACE SYSTEM 12/22/2004 8:32 PM CDT us Juan Mejia MD CHEMISTRY ORDERABLES Final Resul t INTERFACE SYSTEM Refer to clinic/hospital department * CBC WITH DIFFERENTIAL (12/22/2004 8:32 PM CDT) WBC 7.2 4.5 - 11.0 K/ul INTERFACE SYSTEM RBC 4.51 4.20 - 5.40 Mil/ul INTERFACE SYSTEM HEMOGLOBIN 13.6 12.0 - 16.0 g/dL INTERFACE SYSTEM HEMATOCRIT 40.1 36.0 - 46.0 % INTERFACE SYSTEM MCV 88.9 84.0 - 103.0 Fl INTERFACE SYSTEM MCH 30.2 27.0 - 34.0 pg INTERFACE SYSTEM MCHC 33.9 30.0 - 35.0 g/dL INTERFACE SYSTEM RDW 13.0 11.0 - 14.5 % INTERFACE SYSTEM PLATELETS 236 140 - 440 K/ul INTERFACE SYSTEM MPV 10.2 8.9 - 12.8 Fl INTERFACE SYSTEM NEUTROPHILS 60.8 42.2 - 75.2 % INTERFACE SYSTEM LYMPHOCYTES 30.8 24.0 - 44.0 % INTERFACE SYSTEM MONOCYTES 6.3 2.0 - 10.0 % INTERFACE SYSTEM EOSINOPHILS 1.8 0.0 - 7.0 % INTERFACE SYSTEM BASOPHILS 0.3 0.0 - 1.0 % INTERFACE SYSTEM NEUTROPHIL ABSOLUTE 4.4 2.0 - 8.0 K/uL INTERFACE SYSTEM LYMPHOCYTE ABSOLUTE 2.2 1.2 - 4.0 K/ul INTERFACE SYSTEM MONOCYTE ABSOLUTE 0.5 0.1 - 0.6 K/ul INTERFACE SYSTEM EOSINOPHIL ABSOLUTE 0.1 0.0 - 0.7 K/ul INTERFACE SYSTEM BASOPHILS ABSOLUTE 0.0 0.0 - 0.2 K/ul INTERFACE SYSTEM 12/22/2004 8:32 PM CDT us Juan Mejia MD HEMATOLOGY ORDERABLES Final Resu lt INTERFACE SYSTEM Refer to clinic/hospital department * PTT (12/22/2004 8:32 PM CDT) PTT 36.0 24.3 - 37.5 Secs INTERFACE SYSTEM Comment:Therapeutic Range: 12/22/2004 8:32 PM CDT Juan Mejia MD HEMATOLOGY ORDERABLES Final Resu lt Performing Organization Address [facility] Phone Number INTERFACE SYSTEM Refer to clinic/hospital department * PROTIME-INR (12/22/2004 8:32 PM CDT) PROTIME 13.6 12.4 - 14.9 Secs INTERFACE SYSTEM Comment: As of 04 note change in normal range. INR 1.0 INTERFACE SYSTEM Comment: Expected Values for INR: DVT/PE Goal INR 2.5; range 2.0 - 3.0 Valve Replacement Tissue Goal INR 2.5; range 2.0 - 3.0 Mechanical Goal INR 3.0; range 2.5 - 3.5 POST-AZ Goal INR 2.5; range 2.0 - 3.0 or Goal 3.0; range 2.5 - 3.5 Atrial Fibrillation Goal INR 2.5; range 2.0 - 3.0 Ischemic Stroke Goal INR 2.5; range 2.0 - 3.0 For additional information see Guidelines for Anticoagulation available from the pharmacy [facility]. 12/22/2004 8:32 PM CDT Juan Mejai MD HEMATOLOGY ORDERABLES Final Resu lt Performing Organization Address [facility] Phone Number INTERFACE SYSTEM Refer to clinic/hospital department * (ABNORMAL) BASIC METABOLIC PANEL (12/22/2004 8:32 PM CDT) GLUCOSE 91 70 - 110 mg/dL INTERFACE SYSTEM BUN 7 7 - 17 mg/dL INTERFACE SYSTEM CREATININE 0.7 0.7 - 1.2 mg/dL INTERFACE SYSTEM SODIUM 144 136 - 145 mEq/L INTERFACE SYSTEM POTASSIUM 3.3(L) 3.5 - 5.0 mEq/L INTERFACE SYSTEM CHLORIDE 108 95 - 110 mEq/L INTERFACE SYSTEM CO2 21(L) 22 - 32 mmol/l INTERFACE SYSTEM ANION GAP 18 9 - 20 mEq/L INTERFACE SYSTEM OSMOLALITY, CALCULATED 292 275 - 295 mOsm/Kg INTERFACE SYSTEM CALCIUM 9.4 8.4 - 10.5 mg/dL INTERFACE SYSTEM 12/22/2004 8:3 2 PM CDT Juan Mejia MD CHEMISTRY ORDERABLES Final Resul t Performing Organization Address [facility] Phone Number INTERFACE SYSTEM Refer to clinic/hospital department * CARDIAC ENZYMES (12/22/2004 8:32 PM CDT) CKMB 0.4 0.0 - 5.0 ng/mL INTERFACE SYSTEM Comment: As of 04 at 14:30 [facility] has changed the methodology for CK-MB and with this change the reference range has changed from 0-5.5 ng/ml to 0-5.0 ng/ml TROPONIN I <0.1 0.0 - 1.5 ng/mL INTERFACE SYSTEM Comment: As of 04 at 14:30 [facility] has changed the methodology for Troponin but the reference range of 1.5 ng/ml has remained the same. 12/22/2004 8:32 PM CDT Juan Mejia MD CHEMISTRY ORDERABLES Final Resul t Performing Organization Address [facility] Phone Number INTERFACE SYSTEM Refer to clinic/hospital department documented in this encounter Visit Diagnoses Diagnosis Other chest pain- Primary documented in this encounter Additional Health Concerns Infection Onset Date Last Indicated Resolved Time R/O COVID-19 06/12/2020 06/12/2020 06/12/2020 5:13 PM BOXING AND PRESSING SUPERVISOR COVID-19 06/12/2020 06/12/2020 07/12/2020 8:08 PM BOXING AND PRESSING SUPERVISOR R/O COVID-19 09/16/2020 09/16/2020 09/16/2020 6:00 PM BOXING AND PRESSING SUPERVISOR documented as of this encounter Care Teams Hydraulic Operator Relationship Specialty Start Date End Date Walt Quintero MD [address] [address] PCP - General 07/23/05 documented as of this encounter
--- OUTSIDE RECORDS SUMMARY | 2025-07-22 07:55 | XMS_ITS | Encounter Summary ---
Author Organization [facility] Address [address] [place] [address] Care Team Providers Care Tabulating Machine Mechanic Name Role Phone Walt Quintero MD Primary Care Provider [phone] Encounter Details Date Type Department Care Team (Late st Contact Info) Description 08/12/2005 Outpatient Historical [facility] Social History Tobacco Use Types Packs/Day Years Used Date Smoking Tobacco: Never Assessed Comments Unknown Sex and Gender Information Value Date Recorded Sex Assigned at Not on file Legal Sex Female 4:11 AM ATTENDANT COIN OPERATED LAUNDRY Gender Identity Not on file Sexual Orientation Not on file documented as of this encounter Plan of Treatment Not on file documented as of this encounter Visit Diagnoses Not on filedocumented in this encounter Additional Health Concerns Infection Onset Date Last Indicated Resolved Time R/O COVID-19 06/12/2020 06/12/2020 06/12/2020 5:13 PM ATTENDANT COIN OPERATED LAUNDRY COVID-19 06/12/2020 06/12/2020 07/12/2020 8:08 PM ATTENDANT COIN OPERATED LAUNDRY R/O COVID-19 09/16/2020 09/16/2020 09/16/2020 6:00 PM ATTENDANT COIN OPERATED LAUNDRY documented as of this encounter Care Teams Tabulating Machine Mechanic Relationship Specialty Start Date End Date Walt Quintero MD [address] [place] [phone] PCP - General 07/23/05 documented as of this encounter
--- OUTSIDE RECORDS SUMMARY | 2025-07-22 07:55 | XMS_ITS | Encounter Summary ---
Author Organization [facility] Address [address] [place] [address] Care Team Providers Care Leather Coverer Name Role Phone Walt Quintero MD Primary Care Provider [phone] Encounter Details Date Type Department Care Team (Late st Contact Info) Description 08/19/2005 Outpatient Historical [facility] Social History Tobacco Use Types Packs/Day Years Used Date Smoking Tobacco: Never Assessed Comments Unknown Sex and Gender Information Value Date Recorded Sex Assigned at Not on file Legal Sex Female 4:11 AM TELEPHONE LINES REPAIRER Gender Identity Not on file Sexual Orientation Not on file documented as of this encounter Plan of Treatment Not on file documented as of this encounter Visit Diagnoses Not on filedocumented in this encounter Additional Health Concerns Infection Onset Date Last Indicated Resolved Time R/O COVID-19 06/12/2020 06/12/2020 06/12/2020 5:13 PM TELEPHONE LINES REPAIRER COVID-19 06/12/2020 06/12/2020 07/12/2020 8:08 PM TELEPHONE LINES REPAIRER R/O COVID-19 09/16/2020 09/16/2020 09/16/2020 6:00 PM TELEPHONE LINES REPAIRER documented as of this encounter Care Teams Leather Coverer Relationship Specialty Start Date End Date Walt Quintero MD [address] [place] [phone] PCP - General 07/23/05 documented as of this encounter
--- OUTSIDE RECORDS SUMMARY | 2025-07-22 07:55 | XMS_ITS | Encounter Summary ---
Author Organization [facility] Address [address] [place] [address] Care Team Providers Care Tooling Mechanic Name Role Phone Walt Quintero MD Primary Care Provider [phone] Encounter Details Date Type Department Care Team (Late st Contact Info) Description 08/24/2005 Outpatient Historical [facility] Social History Tobacco Use Types Packs/Day Years Used Date Smoking Tobacco: Never Assessed Comments Unknown Sex and Gender Information Value Date Recorded Sex Assigned at Not on file Legal Sex Female 4:11 AM APPOINTMENT CLERK Gender Identity Not on file Sexual Orientation Not on file documented as of this encounter Plan of Treatment Not on file documented as of this encounter Visit Diagnoses Not on filedocumented in this encounter Additional Health Concerns Infection Onset Date Last Indicated Resolved Time R/O COVID-19 06/12/2020 06/12/2020 06/12/2020 5:13 PM APPOINTMENT CLERK COVID-19 06/12/2020 06/12/2020 07/12/2020 8:08 PM APPOINTMENT CLERK R/O COVID-19 09/16/2020 09/16/2020 09/16/2020 6:00 PM APPOINTMENT CLERK documented as of this encounter Care Teams Tooling Mechanic Relationship Specialty Start Date End Date Walt Quintero MD [address] [place] [phone] PCP - General 07/23/05 documented as of this encounter
--- OUTSIDE RECORDS SUMMARY | 2025-07-22 07:55 | XMS_ITS | Encounter Summary ---
Author Organization [facility] Address [address] Nicole: Epic Prelude ADT [place] [address] Care Team Providers Care Mortgage Consultant Name Role Phone Walt Quintero MD Primary Care Provider [phone] Encounter Details Date Type Department Care Team (Latest Contact Info) Description 02/21/2002 Emergency Quinn Perez DO NO ADDRESS ON FILE Social History Tobacco Use Types Packs/Day Years Used Date Smoking Tobacco: Never Assessed Comments Unknown Sex and Gender Information Value Date Recorded Sex Assigned at Not on file Legal Sex Female 4:11 AM DIRECTOR OF MEDICAL EDUCATION Gender Identity Not on file Sexual Orientation Not on file documented as of this encounter Plan of Treatment Not on file documented as of this encounter Visit Diagnoses Not on filedocumented in this encounter Additional Health Concerns Infection Onset Date Last Indicated Resolved Time R/O COVID-19 06/12/2020 06/12/2020 06/12/2020 5:13 PM DIRECTOR OF MEDICAL EDUCATION COVID-19 06/12/2020 06/12/2020 07/12/2020 8:08 PM DIRECTOR OF MEDICAL EDUCATION R/O COVID-19 09/16/2020 09/16/2020 09/16/2020 6:00 PM DIRECTOR OF MEDICAL EDUCATION documented as of this encounter Care Teams Mortgage Consultant Relationship Specialty Start Date End Date Walt Quintero MD [address] [place] [phone] PCP - General 07/23/05 documented as of this encounter
--- OUTSIDE RECORDS SUMMARY | 2025-07-22 07:55 | XMS_ITS | Encounter Summary ---
Author Organization [facility] Address [address] [place] [address] Care Team Providers Care Manager Clinical Name Role Phone Walt Quintero MD Primary Care Provider [phone] Encounter Details Date Type Department Care Team (Latest Contact Info) Description 09/08/2005 Outpatient Historical [facility] Pain Management Procedures [address] 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
--- OUTSIDE RECORDS SUMMARY | 2025-07-22 07:55 | XMS_ITS | Encounter Summary ---
Author Organization [facility] Address [address] [place] [address] Care Team Providers Care Nurse Sane Name Role Phone Walt Quintero MD Primary Care Provider [phone] Encounter Details Date Type Department Care Team (Latest Contact Info) Description 05/14/2004 Outpatient Historical [facility] Medicine- [place] [address] [place] [phone] Dimitrios Greer MD [address] [place] [address] ACUTE URI NOS (Primary Dx); HYPERTENSION NOS; ANXIETY STATE NOS; DEPRESSIVE DISORDER NEC Social History Tobacco Use Types Packs/Day Years Used Date Smoking Tobacco: Never Assessed Comments Unknown Sex and Gender Information Value Date Recorded Sex Assigned at Not on file Legal Sex Female 4:11 AM SHELLFISH PROCESSING MACHINE TENDER Gender Identity Not on file Sexual Orientation Not on file documented as of this encounter Plan of Treatment Not on file documented as of this encounter Visit Diagnoses Diagnosis Acute upper respiratory infections of unspecified site- Primary Unspecified essential hypertension Anxiety state, unspecified Depressive disorder, not elsewhere classified documented in this encounter Additional Health Concerns Infection Onset Date Last Indicated Resolved Time R/O COVID-19 06/12/2020 06/12/2020 06/12/2020 5:13 PM SHELLFISH PROCESSING MACHINE TENDER COVID-19 06/12/2020 06/12/2020 07/12/2020 8:08 PM SHELLFISH PROCESSING MACHINE TENDER R/O COVID-19 09/16/2020 09/16/2020 09/16/2020 6:00 PM SHELLFISH PROCESSING MACHINE TENDER documented as of this encounter Care Teams Nurse Sane Relationship Specialty Start Date End Date Walt Quintero MD [address] [phone] PCP - General 07/23/05 documented as of this encounter
--- OUTSIDE RECORDS SUMMARY | 2025-07-22 07:55 | XMS_ITS | Encounter Summary ---
Author Organization [facility] Address [address] [place] [address] Care Team Providers Care Deputy Jailer Name Role Phone Walt Quintero MD Primary Care Provider [phone] Encounter Details Date Type Department Care Team (Latest Contact Info) Description 08/10/2005 Outpatient [facility] [address] [address] Jr Blue MD NO ADDRESS ON FILE CERVICALGIA (Primary Dx) Social History Tobacco Use Types Packs/Day Years Used Date Smoking Tobacco: Never Assessed Comments Unknown Sex and Gender Information Value Date Recorded Sex Assigned at Not on file Legal Sex Female 4:11 AM LIME KILN WORKER Gender Identity Not on file Sexual Orientation Not on file documented as of this encounter Plan of Treatment Not on file documented as of this encounter Visit Diagnoses Diagnosis Cervicalgia- Primary documented in this encounter Additional Health Concerns Infection Onset Date Last Indicated Resolved Time R/O COVID-19 06/12/2020 06/12/2020 06/12/2020 5:13 PM LIME KILN WORKER COVID-19 06/12/2020 06/12/2020 07/12/2020 8:08 PM LIME KILN WORKER R/O COVID-19 09/16/2020 09/16/2020 09/16/2020 6:00 PM LIME KILN WORKER documented as of this encounter Care Teams Deputy Jailer Relationship Specialty Start Date End Date Walt Quintero MD [address] [place] [address] PCP - General 07/23/05 documented as of this encounter
--- OUTSIDE RECORDS SUMMARY | 2025-07-22 07:55 | XMS_ITS | Encounter Summary ---
Author Organization [facility] Address [address] [place] [address] Care Team Providers Care Calender Let Off Helper Name Role Phone Walt Quintero MD Primary Care Provider [phone] Encounter Details Date Type Department Care Team (Latest Contact Info) Description 08/10/2005 Outpatient Historical [facility] [address] [place] [phone] Jr Blue MD NO ADDRESS ON FILE CERVICAL DISC DEGEN (Primary Dx); Cervical disc displacmnt; CERVICALGIA; HEADACHE Social History Tobacco Use Types Packs/Day Years Used Date Smoking Tobacco: Never Assessed Comments Unknown Sex and Gender Information Value Date Recorded Sex Assigned at Not on file Legal Sex Female 4:11 AM SENIOR BI ARCHITECT Gender Identity Not on file Sexual Orientation Not on file documented as of this encounter Plan of Treatment Not on file documented as of this encounter Visit Diagnoses Diagnosis Degeneration of cervical intervertebral disc- Primary Cervical disc displacmnt Displacement of cervical intervertebral disc without myelopathy Cervicalgia Headache(784.0) Headache documented in this encounter Additional Health Concerns Infection Onset Date Last Indicated Resolved Time R/O COVID-19 06/12/2020 06/12/2020 06/12/2020 5:13 PM SENIOR BI ARCHITECT COVID-19 06/12/2020 06/12/2020 07/12/2020 8:08 PM SENIOR BI ARCHITECT R/O COVID-19 09/16/2020 09/16/2020 09/16/2020 6:00 PM SENIOR BI ARCHITECT documented as of this encounter Care Teams Calender Let Off Helper Relationship Specialty Start Date End Date Walt Quintero MD [address] [phone] PCP - General 07/23/05 documented as of this encounter
--- OUTSIDE RECORDS SUMMARY | 2025-07-22 07:55 | XMS_ITS | Encounter Summary ---
Author Organization [facility] Address [address] [place] [address] Care Team Providers Care Safety Sitter Name Role Phone Walt Quintero MD Primary Care Provider [phone] Encounter Details Date Type Department Care Team (Late st Contact Info) Description 10/13/2005 Outpatient Historical [facility] [address] [place] [address] Jr Blue MD NO ADDRESS ON FILE Social History Tobacco Use Types Packs/Day Years Used Date Smoking Tobacco: Never Assessed Comments Unknown Sex and Gender Information Value Date Recorded Sex Assigned at Not on file Legal Sex Female 4:11 AM EMERGENCY MEDICAL SERVICE COORDINATOR Gender Identity Not on file Sexual Orientation Not on file documented as of this encounter Plan of Treatment Not on file documented as of this encounter Visit Diagnoses Not on filedocumented in this encounter Additional Health Concerns Infection Onset Date Last Indicated Resolved Time R/O COVID-19 06/12/2020 06/12/2020 06/12/2020 5:13 PM EMERGENCY MEDICAL SERVICE COORDINATOR COVID-19 06/12/2020 06/12/2020 07/12/2020 8:08 PM EMERGENCY MEDICAL SERVICE COORDINATOR R/O COVID-19 09/16/2020 09/16/2020 09/16/2020 6:00 PM EMERGENCY MEDICAL SERVICE COORDINATOR documented as of this encounter Care Teams Safety Sitter Relationship Specialty Start Date End Date Walt Quintero MD [address] [place] [address] PCP - General 07/23/05 documented as of this encounter
--- OUTSIDE RECORDS SUMMARY | 2025-07-22 07:55 | XMS_ITS | Encounter Summary ---
Author Organization [facility] Address [address] [place] [address] Care Team Providers Care Certified Medical Records Coder Name Role Phone Walt Quintero MD Primary Care Provider [phone] Encounter Details Date Type Department Care Team (Late st Contact Info) Description 07/23/2005 Outpatient Historical [facility] Imaging Services [facility] [place] [address] Social History Tobacco Use Types Packs/Day Years Used Date Smoking Tobacco: Never Assessed Comments Unknown Sex and Gender Information Value Date Recorded Sex Assigned at Not on file Legal Sex Female 4:11 AM JEWELRY BENCH MOLDER Gender Identity Not on file Sexual Orientation Not on file documented as of this encounter Plan of Treatment Not on file documented as of this encounter Visit Diagnoses Not on filedocumented in this encounter Additional Health Concerns Infection Onset Date Last Indicated Resolved Time R/O COVID-19 06/12/2020 06/12/2020 06/12/2020 5:13 PM JEWELRY BENCH MOLDER COVID-19 06/12/2020 06/12/2020 07/12/2020 8:08 PM JEWELRY BENCH MOLDER R/O COVID-19 09/16/2020 09/16/2020 09/16/2020 6:00 PM JEWELRY BENCH MOLDER documented as of this encounter Care Teams Certified Medical Records Coder Relationship Specialty Start Date End Date Walt Quintero MD [address] [place] [address] PCP - General 07/23/05 documented as of this encounter
--- OUTSIDE RECORDS SUMMARY | 2025-07-22 07:55 | XMS_ITS | Encounter Summary ---
Author Organization [facility] Address [address] [place] [address] Care Team Providers Care Brain Picker Name Role Phone Walt Quintero MD Primary Care Provider [phone] Encounter Details Date Type Department Care Team (Latest Contact Info) Description 09/12/2005 Outpatient Historical [facility] [address] [place] [address] Jr Blue MD NO ADDRESS ON FILE CERVICALGIA (Primary Dx) Social History Tobacco Use Types Packs/Day Years Used Date Smoking Tobacco: Never Assessed Comments Unknown Sex and Gender Information Value Date Recorded Sex Assigned at Not on file Legal Sex Female 4:11 AM APPRISE COUNSELOR Gender Identity Not on file Sexual Orientation Not on file documented as of this encounter Plan of Treatment Not on file documented as of this encounter Visit Diagnoses Diagnosis Cervicalgia- Primary documented in this encounter Additional Health Concerns Infection Onset Date Last Indicated Resolved Time R/O COVID-19 06/12/2020 06/12/2020 06/12/2020 5:13 PM APPRISE COUNSELOR COVID-19 06/12/2020 06/12/2020 07/12/2020 8:08 PM APPRISE COUNSELOR R/O COVID-19 09/16/2020 09/16/2020 09/16/2020 6:00 PM APPRISE COUNSELOR documented as of this encounter Care Teams Brain Picker Relationship Specialty Start Date End Date Walt Quintero MD [address] [facility] [address] [place] [address] PCP - General 07/23/05 documented as of this encounter
--- OUTSIDE RECORDS SUMMARY | 2025-07-22 07:55 | XMS_ITS | Encounter Summary ---
Author Organization [employer] Address [address] [place] [address] Care Team Providers Care Ice Cream Chef Name Role Phone Walt Quintero MD Primary Care Provider [phone] Encounter Details Date Type Department Care Team (Latest Contact Info) Description 08/25/2005 Outpatient Historical [facility] Pain Management Procedures [address] 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
--- OUTSIDE RECORDS SUMMARY | 2025-07-22 07:55 | XMS_ITS | Encounter Summary ---
Author Organization [facility] Address [address] [place] [address] Care Team Providers Care Mangle Catcher Name Role Phone Walt Quintero MD Primary Care Provider [phone] Encounter Details Date Type Department Care Team (Latest Contact Info) Description 10/31/2012 Ancillary Orders [facility] Pre-Registration [place] CALL TO MAKE APPOINTMENT ONLY [address] [place] [address] Walt Quintero MD [address] [address] Other sign and symptom in breast (Primary Dx) Social History Tobacco Use Types Packs/Day Years Used Date Smoking Tobacco: Every Day Cigarettes 0.8 24 Started: 06/23/1986; Last attempted to quit: 06/23/2010 Smokeless Tobacco: Never Comments:64 Alcohol Use Standard Drinks/Week Comments No 0 (1 standard drink = 0.6 oz pur e alcohol) Comments No Sex and Gender Information Value Date Recorded Sex Assigned at Not on file Legal Sex Female 4:11 AM YARD SPOTTER Gender Identity Not on file Sexual Orientation Not on file Occupation Industry Job Start Date Job End Date Not on file Not on file Not on file Not on file documented as of this encounter Plan of Treatment Not on file documented as of this encounter Visit Diagnoses Diagnosis Other sign and symptom in breast- Primary documented in this encounter Additional Health Concerns Infection Onset Date Last Indicated Resolved Time R/O COVID-19 06/12/2020 06/12/2020 06/12/2020 5:13 PM YARD SPOTTER COVID-19 06/12/2020 06/12/2020 07/12/2020 8:08 PM YARD SPOTTER R/O COVID-19 09/16/2020 09/16/2020 09/16/2020 6:00 PM YARD SPOTTER documented as of this encounter Care Teams Mangle Catcher Relationship Specialty Start Date End Date Walt Quintero MD [address] [phone] PCP - General 07/23/05 documented as of this encounter
--- OUTSIDE RECORDS SUMMARY | 2025-07-22 07:55 | XMS_ITS | Encounter Summary ---
Author Organization [facility] Address [address] [place] [address] Care Team Providers Care Laborer Operator Name Role Phone Walt Quintero MD Primary Care Provider [phone] Encounter Details Date Type Department Care Team (Late st Contact Info) Description 08/17/2005 Outpatient Historical [facility] Social History Tobacco Use Types Packs/Day Years Used Date Smoking Tobacco: Never Assessed Comments Unknown Sex and Gender Information Value Date Recorded Sex Assigned at Not on file Legal Sex Female 4:11 AM CONTINUOUS IMPROVEMENT BLACK BELT Gender Identity Not on file Sexual Orientation Not on file documented as of this encounter Plan of Treatment Not on file documented as of this encounter Visit Diagnoses Not on filedocumented in this encounter Additional Health Concerns Infection Onset Date Last Indicated Resolved Time R/O COVID-19 06/12/2020 06/12/2020 06/12/2020 5:13 PM CONTINUOUS IMPROVEMENT BLACK BELT COVID-19 06/12/2020 06/12/2020 07/12/2020 8:08 PM CONTINUOUS IMPROVEMENT BLACK BELT R/O COVID-19 09/16/2020 09/16/2020 09/16/2020 6:00 PM CONTINUOUS IMPROVEMENT BLACK BELT documented as of this encounter Care Teams Laborer Operator Relationship Specialty Start Date End Date Walt Quintero MD [address] [place] [phone] PCP - General 07/23/05 documented as of this encounter
--- OUTSIDE RECORDS SUMMARY | 2025-07-22 07:55 | XMS_ITS | Encounter Summary ---
Author Organization [facility] Address [address] [place] [address] Care Team Providers Care Media Marketing Coordinator Name Role Phone Walt Quintero MD Primary Care Provider [phone] Encounter Details Date Type Department Care Team (Late st Contact Info) Description 10/06/2004 Outpatient Historical [facility] [address] [facility], [address] [place] [address] Kacey Narvaez MD [address] [facility] [address] [place] [address] Social History Tobacco Use Types Packs/Day Years Used Date Smoking Tobacco: Never Assessed Comments Unknown Sex and Gender Information Value Date Recorded Sex Assigned at Not on file Legal Sex Female 4:11 AM AGRICULTURAL TECHNICIAN Gender Identity Not on file Sexual Orientation Not on file documented as of this encounter Plan of Treatment Not on file documented as of this encounter Procedures Procedure Name Priority Date/Time Associated Diagnosis Comments IMMUNOFIXATION Routine 10/06/2004 1:36 PM AGRICULTURAL TECHNICIAN PROTEIN ELECTROPHORESIS W/REFLEX,SERUM Routine 10/06/2004 1:36 PM AGRICULTURAL TECHNICIAN documented in this encounter Results * PROTEIN ELECTROPHORESIS, SERUM (10/06/2004 1:36 PM AGRICULTURAL TECHNICIAN) Pathologist [facility] INTERP INTERFACE SYSTEM Comment: Essentially normal pattern Interpreted by: Emily Rankin PROTEIN TOTAL, SPE 6.70 6.10 - 7.80 g/dL INTERFACE SYSTEM ALBUMIN SPE 4.09 3.50 - 5.30 g/dL INTERFACE SYSTEM ALPHA 1 GLOBULIN SPE .20 0.11 - 0.31 INTERFACE SYSTEM ALPHA 2 GLOBULIN SPE .75 0.58 - 1.16 g/dL INTERFACE SYSTEM BETA GLOBULIN .67 0.59 - 0.88 g/dL INTERFACE SYSTEM GAMMA GLOBULIN .99 0.50 - 1.35 g/dL INTERFACE SYSTEM ALBUMIN %, 61.0 57.4 - 65.5 % INTERFACE SYSTEM % ALPHA 1 GLOBULIN 3.0 1.8 - 3.8 % INTERFACE SYSTEM % ALPHA 2 GLOBULIN 11.2 9.5 - 14.3 % INTERFACE SYSTEM % Beta Globulin 10.0 9.1 - 10.9 % INTERFACE SYSTEM % GAMMA GLOBULIN 14.8 8.2 - 16.7 % INTERFACE SYSTEM ALBUMIN/GLOBULI N RATIO 1.57 g/dL INTERFACE SYSTEM 10/06/2004 1:36 PM AGRICULTURAL TECHNICIAN us Kacey Narvaez MD CHEMISTRY ORDERABLES Fin al Result Performing Organization Address City/[facility] Co de Phone Number INTERFACE SYSTEM Refer to clinic/hospital department * IMMUNOFIXATION (10/06/2004 1:36 PM AGRICULTURAL TECHNICIAN) [facility] IMMUNOFIXATION INTER FACE SYSTEM Comment: No M Band identified. Normal polyclonal immunoglobulins demonstrated. Interpreted by: Emily Rankin 10/06/2004 1:36 PM AGRICULTURAL TECHNICIAN us Kacey Narvaez MD CHEMISTRY ORDERABLES Fin al Result Performing Organization Address City/State/[facility] Co de Phone Number INTERFACE SYSTEM Refer to clinic/hospital department documented in this encounter Visit Diagnoses Not on filedocumented in this encounter Additional Health Concerns Infection Onset Date Last Indicated Resolved Time R/O COVID-19 06/12/2020 06/12/2020 06/12/2020 5:13 PM AGRICULTURAL TECHNICIAN COVID-19 06/12/2020 06/12/2020 07/12/2020 8:08 PM AGRICULTURAL TECHNICIAN R/O COVID-09/16/2020 09/16/2020 09/16/2020 6:00 PM AGRICULTURAL TECHNICIAN documented as of this encounter Care Teams Media Marketing Coordinator Relationship Specialty Start Date End Date Walt Quintero MD [address] [address] PCP - General 07/23/05 documented as of this encounter
--- OUTSIDE RECORDS SUMMARY | 2025-07-22 07:55 | XMS_ITS | Encounter Summary ---
Author Organization [facility] Address [address] [place] [address] Care Team Providers Care Grain Elevator Superintendent Name Role Phone Walt Quintero MD Primary Care Provider Encounter Details Date Type Department Care Team (Latest Contact Info) Description 09/27/2000 Outpatient Historical [facility] [place] [facility]- [place] [address] [place] [address] Sachin Howard III, MD [address] [place] [address] Abdominal pain, unspecified site (Primary Dx); Nausea with vomiting Social History Tobacco Use Types Packs/Day Years Used Date Smoking Tobacco: Never Assessed Comments Unknown Sex and Gender Information Value Date Recorded Sex Assigned at Not on file Legal Sex Female 4:11 AM WEB DEVELOPMENT MANAGER Gender Identity Not on file Sexual Orientation Not on file documented as of this encounter Plan of Treatment Not on file documented as of this encounter Visit Diagnoses Diagnosis Abdominal pain, unspecified site- Primary Nausea with vomiting documented in this encounter Additional Health Concerns Infection Onset Date Last Indicated Resolved Time R/O COVID-19 06/12/2020 06/12/2020 06/12/2020 5:13 PM WEB DEVELOPMENT MANAGER COVID-19 06/12/2020 06/12/2020 07/12/2020 8:08 PM WEB DEVELOPMENT MANAGER R/O COVID-19 09/16/2020 09/16/2020 09/16/2020 6:00 PM WEB DEVELOPMENT MANAGER documented as of this encounter Care Teams Grain Elevator Superintendent Relationship Specialty Start Date End Date Walt Quintero MD [address] [phone] PCP - General 07/23/05 documented as of this encounter
--- OUTSIDE RECORDS SUMMARY | 2025-07-22 07:55 | XMS_ITS | Encounter Summary ---
Author Organization [facility] Address [address] [place] [address] Care Team Providers Care Supervisor Electric Motor Testing Name Role Phone Walt Quintero MD Primary Care Provider [phone] Encounter Details Date Type Department Care Team (Latest Contact Info) Description 08/11/2004 Outpatient Historical [employer] [facility] [address] [place] [address] Dimitrios Greer MD [address] [place] [address] SCREENING MAL NEOP-VAGINA (Primary Dx) Social History Tobacco Use Types Packs/Day Years Used Date Smoking Tobacco: Never Assessed Comments Unknown Sex and Gender Information Value Date Recorded Sex Assigned at Not on file Legal Sex Female 4:11 AM PANTS CLOSER Gender Identity Not on file Sexual Orientation Not on file documented as of this encounter Plan of Treatment Not on file documented as of this encounter Visit Diagnoses Diagnosis Special screening for malignant neoplasms, vagina- Primary documented in this encounter Additional Health Concerns Infection Onset Date Last Indicated Resolved Time R/O COVID-19 06/12/2020 06/12/2020 06/12/2020 5:13 PM PANTS CLOSER COVID-19 06/12/2020 06/12/2020 07/12/2020 8:08 PM PANTS CLOSER R/O COVID-19 09/16/2020 09/16/2020 09/16/2020 6:00 PM PANTS CLOSER documented as of this encounter Care Teams Supervisor Electric Motor Testing Relationship Specialty Start Date End Date Walt Quintero MD [address] [facility] [address] [place] [phone] PCP - General 07/23/05 documented as of this encounter
--- OUTSIDE RECORDS SUMMARY | 2025-07-22 07:55 | XMS_ITS | Encounter Summary ---
Author Organization [facility] Address [address] [place] [address] Care Team Providers Care Dynamic Balancer Name Role Phone Walt Quintero MD Primary Care Provider [phone] Encounter Details Date Type Department Care Team (Latest Contact Info) Description 10/29/2003 Outpatient Historical [facility] [place] [address] [place] [address] Dimitrios Greer MD [address] [place] [address] PNEUMONIA, ORGANISM NOS (Primary Dx); DYSPHAGIA Social History Tobacco Use Types Packs/Day Years Used Date Smoking Tobacco: Never Assessed Comments Unknown Sex and Gender Information Value Date Recorded Sex Assigned at Not on file Legal Sex Female 4:11 AM SALES REPRESENTATIVE SALES MANAGER Gender Identity Not on file Sexual Orientation Not on file documented as of this encounter Plan of Treatment Not on file documented as of this encounter Visit Diagnoses Diagnosis Pneumonia, organism unspecified(486)- Primary Pneumonia, organism unspecified Dysphagia documented in this encounter Additional Health Concerns Infection Onset Date Last Indicated Resolved Time R/O COVID-19 06/12/2020 06/12/2020 06/12/2020 5:13 PM SALES REPRESENTATIVE SALES MANAGER COVID-19 06/12/2020 06/12/2020 07/12/2020 8:08 PM SALES REPRESENTATIVE SALES MANAGER R/O COVID-19 09/16/2020 09/16/2020 09/16/2020 6:00 PM SALES REPRESENTATIVE SALES MANAGER documented as of this encounter Care Teams Dynamic Balancer Relationship Specialty Start Date End Date Walt Quinteor MD [address] [facility] [address] [place] [address] PCP - General 07/23/05 documented as of this encounter
--- OUTSIDE RECORDS SUMMARY | 2025-07-22 07:55 | XMS_ITS | Encounter Summary ---
Author Organization [facility] Address [address] [place] [address] Care Team Providers Care Technology Teacher Name Role Phone Walt Quintero MD Primary Care Provider [phone] Encounter Details Date Type Department Care Team (Latest Contact Info) Description 10/12/2005 Outpatient Historical [facility] CANCELLED ADMISS[facility] [facility] [address] [place] [address] Encounters for Unspecified Administrative Purpose (Primary Dx) Social History Tobacco Use Types Packs/Day Years Used Date Smoking Tobacco: Never Assessed Comments Unknown Sex and Gender Information Value Date Recorded Sex Assigned at Not on file Legal Sex Female 4:11 AM POLICY CANCELLATION CLERK Gender Identity Not on file Sexual Orientation Not on file documented as of this encounter Plan of Treatment Not on file documented as of this encounter Visit Diagnoses Diagnosis Encounters for unspecified administrative purpose- Primary documented in this encounter Additional Health Concerns Infection Onset Date Last Indicated Resolved Time R/O COVID-19 06/12/2020 06/12/2020 06/12/2020 5:13 PM POLICY CANCELLATION CLERK COVID-19 06/12/2020 06/12/2020 07/12/2020 8:08 PM POLICY CANCELLATION CLERK R/O COVID-19 09/16/2020 09/16/2020 09/16/2020 6:00 PM POLICY CANCELLATION CLERK documented as of this encounter Care Teams Technology Teacher Relationship Specialty Start Date End Date Walt Quintero MD [address] [address] PCP - General 07/23/05 documented as of this encounter
--- OUTSIDE RECORDS SUMMARY | 2025-07-22 07:55 | XMS_ITS | Encounter Summary ---
Author Organization [facility] Address [address] [place] [address] Care Team Providers Care Adjunct Professor Of Voice Name Role Phone Walt Quintero MD Primary Care Provider [phone] Encounter Details Date Type Department Care Team (Latest Contact Info) Description 10/08/2004 Outpatient Historical [facility] Imaging Services [address] [place] [address] Kacey Narvaez MD [address] [address] MONONEURITIS NOS (Primary Dx) Social History Tobacco Use Types Packs/Day Years Used Date Smoking Tobacco: Never Assessed Comments Unknown Sex and Gender Information Value Date Recorded Sex Assigned at Not on file Legal Sex Female 4:11 AM PAPERBOARD BOXES ESTIMATOR Gender Identity Not on file Sexual Orientation Not on file documented as of this encounter Plan of Treatment Not on file documented as of this encounter Visit Diagnoses Diagnosis Mononeuritis of unspecified site- Primary documented in this encounter Additional Health Concerns Infection Onset Date Last Indicated Resolved Time R/O COVID-19 06/12/2020 06/12/2020 06/12/2020 5:13 PM PAPERBOARD BOXES ESTIMATOR COVID-19 06/12/2020 06/12/2020 07/12/2020 8:08 PM PAPERBOARD BOXES ESTIMATOR R/O COVID-19 09/16/2020 09/16/2020 09/16/2020 6:00 PM PAPERBOARD BOXES ESTIMATOR documented as of this encounter Care Teams Adjunct Professor Of Voice Relationship Specialty Start Date End Date Walt Quintero MD [address] [phone] PCP - General 07/23/05 documented as of this encounter
--- OUTSIDE RECORDS SUMMARY | 2025-07-22 07:55 | XMS_ITS | Encounter Summary ---
Author Organization [facility] Address [address] [place] [address] Care Team Providers Care Credit Reporter Name Role Phone Walt Quintero MD Primary Care Provider [phone] Encounter Details Date Type Department Care Team (Latest Contact Info) Description 07/21/2005 Outpatient Historical [facility] [place] [address] [place] [phone] Carmen France MD [address] [address] ACUTE SINUSITIS NOS (Primary Dx); HEADACHE; CERVICALGIA Social History Tobacco Use Types Packs/Day Years Used Date Smoking Tobacco: Never Assessed Comments Unknown Sex and Gender Information Value Date Recorded Sex Assigned at Not on file Legal Sex Female 4:11 AM APPLICATION CHEMIST Gender Identity Not on file Sexual Orientation Not on file documented as of this encounter Plan of Treatment Not on file documented as of this encounter Visit Diagnoses Diagnosis Acute sinusitis, unspecified- Primary Headache(784.0) Headache Cervicalgia documented in this encounter Additional Health Concerns Infection Onset Date Last Indicated Resolved Time R/O COVID-19 06/12/2020 06/12/2020 06/12/2020 5:13 PM APPLICATION CHEMIST COVID-19 06/12/2020 06/12/2020 07/12/2020 8:08 PM APPLICATION CHEMIST R/O COVID-19 09/16/2020 09/16/2020 09/16/2020 6:00 PM APPLICATION CHEMIST documented as of this encounter Care Teams Credit Reporter Relationship Specialty Start Date End Date Walt Quintero MD [address] [facility] [address] [place] [address] PCP - General 07/23/05 documented as of this encounter
--- OUTSIDE RECORDS SUMMARY | 2025-07-22 07:55 | XMS_ITS | Encounter Summary ---
Author Organization [facility] Address [address] [place] [address] Care Team Providers Care Construction Carpenters Helper Name Role Phone Walt Quintero MD Primary Care Provider [phone] Encounter Details Date Type Department Care Team (Latest Contact Info) Description 10/31/2012 Ancillary Orders [facility] Pre-Registration [place] CALL TO MAKE APPOINTMENT ONLY [address] [place] [address] Walt Quintero MD [address] [address] Other sign and symptom in [...] on file Legal Sex Female 4:11 AM VESSEL OPERATOR Gender Identity Not on file Sexual [...] R/O COVID-19 06/12/2020 06/12/2020 06/12/2020 5:13 PM VESSEL OPERATOR COVID-19 06/12/2020 06/12/2020 07/12/2020 8:08 PM VESSEL OPERATOR R/O COVID-19 09/16/2020 09/16/2020 09/16/2020 6:00 PM VESSEL OPERATOR documented as of this encounter Care Teams Construction Carpenters Helper Relationship Specialty Start Date End Date Walt Quintero MD [address] [phone] PCP - General 07/23/05 documented as of this encounter
--- OUTSIDE RECORDS SUMMARY | 2025-07-22 07:55 | XMS_ITS | Encounter Summary ---
Author Organization [facility] Address [address] [place] [address] Care Team Providers Care Hand Alterations Seamstress Name Role Phone Walt Quintero MD Primary Care Provider Encounter Details Date Type Department Care Team (Latest Contact Info) Description 08/11/2005 Outpatient Historical [facility] Pain Management Procedures [address] 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
--- OUTSIDE RECORDS SUMMARY | 2025-07-22 07:55 | XMS_ITS | Encounter Summary ---
Author Organization [facility] Address [address] [place] [address] Care Team Providers Care Bonding Agent Name Role Phone Walt Quintero MD Primary Care Provider [phone] Encounter Details Date Type Department Care Team (Latest Contact Info) Description 11/12/2004 Outpatient Historical [facility] Medicine- [place] [address] [place] [address] Dimitrios Greer MD [address] [place] [address] HYPERTENSION NOS (Primary Dx); DEPRESSIVE DISORDER NEC; ANXIETY STATE NOS; Skin sensation disturb Social History Tobacco Use Types Packs/Day Years Used Date Smoking Tobacco: Never Assessed Comments Unknown Sex and Gender Information Value Date Recorded Sex Assigned at Not on file Legal Sex Female 4:11 AM PINBALL MACHINE REPAIRER Gender Identity Not on file Sexual Orientation Not on file documented as of this encounter Plan of Treatment Not on file documented as of this encounter Visit Diagnoses Diagnosis Unspecified essential hypertension- Primary Depressive disorder, not elsewhere classified Anxiety state, unspecified Skin sensation disturb Disturbance of skin sensation documented in this encounter Additional Health Concerns Infection Onset Date Last Indicated Resolved Time R/O COVID-19 06/12/2020 06/12/2020 06/12/2020 5:13 PM PINBALL MACHINE REPAIRER COVID-19 06/12/2020 06/12/2020 07/12/2020 8:08 PM PINBALL MACHINE REPAIRER R/O COVID-19 09/16/2020 09/16/2020 09/16/2020 6:00 PM PINBALL MACHINE REPAIRER documented as of this encounter Care Teams Bonding Agent Relationship Specialty Start Date End Date Walt Quintero MD [address] [facility] [address] [place] [address] PCP - General 07/23/05 documented as of this encounter
--- OUTSIDE RECORDS SUMMARY | 2025-07-22 07:55 | XMS_ITS | Encounter Summary ---
Author Organization [facility] Address [address] [place] [address] Care Team Providers Care Transportation Inspector Name Role Phone Walt Quintero MD Primary Care Provider Encounter Details Date Type Department Care Team (Latest Contact Info) Description 10/30/2003 Outpatient Historical [facility] Enrique Hardin [address] [place] [phone] Dimitrios Greer MD [address] [place] [address] DYSPHAGIA (Primary Dx) Social History Tobacco Use Types Packs/Day Years Used Date Smoking Tobacco: Never Assessed Comments Unknown Sex and Gender Information Value Date Recorded Sex Assigned at Not on file Legal Sex Female 4:11 AM CATERING ATTENDANT Gender Identity Not on file Sexual Orientation Not on file documented as of this encounter Plan of Treatment Not on file documented as of this encounter Visit Diagnoses Diagnosis Dysphagia- Primary documented in this encounter Additional Health Concerns Infection Onset Date Last Indicated Resolved Time R/O COVID-19 06/12/2020 06/12/2020 06/12/2020 5:13 PM CATERING ATTENDANT COVID-19 06/12/2020 06/12/2020 07/12/2020 8:08 PM CATERING ATTENDANT R/O COVID-19 09/16/2020 09/16/2020 09/16/2020 6:00 PM CATERING ATTENDANT documented as of this encounter Care Teams Transportation Inspector Relationship Specialty Start Date End Date Walt Quintero MD [address] [facility] [address] [place] [address] PCP - General 07/23/05 documented as of this encounter
--- OUTSIDE RECORDS SUMMARY | 2025-07-22 07:55 | XMS_ITS | Encounter Summary ---
Author Organization [facility] Address [address] [place] [address] Care Team Providers Care Pen Rider Name Role Phone Walt Quintero MD Primary Care Provider [phone] Encounter Details Date Type Department Care Team (Latest Contact Info) Description 10/29/2004 Outpatient Historical [facility] [address] [place] [address] Kacey Narvaez MD [address] [address] Pain in limb (Primary Dx) Social History Tobacco Use Types Packs/Day Years Used Date Smoking Tobacco: Never Assessed Comments Unknown Sex and Gender Information Value Date Recorded Sex Assigned at Not on file Legal Sex Female 4:11 AM RADAR SIGNAL PROCESSING ENGINEER Gender Identity Not on file Sexual Orientation Not on file documented as of this encounter Plan of Treatment Not on file documented as of this encounter Visit Diagnoses Diagnosis Pain in limb- Primary Pain in soft tissues of limb documented in this encounter Additional Health Concerns Infection Onset Date Last Indicated Resolved Time R/O COVID-19 06/12/2020 06/12/2020 06/12/2020 5:13 PM RADAR SIGNAL PROCESSING ENGINEER COVID-19 06/12/2020 06/12/2020 07/12/2020 8:08 PM RADAR SIGNAL PROCESSING ENGINEER R/O COVID-19 09/16/2020 09/16/2020 09/16/2020 6:00 PM RADAR SIGNAL PROCESSING ENGINEER documented as of this encounter Care Teams Pen Rider Relationship Specialty Start Date End Date Walt Quintero MD [address] [facility] [address] [place] [phone] PCP - General 07/23/05 documented as of this encounter
--- OUTSIDE RECORDS SUMMARY | 2025-07-22 07:55 | XMS_ITS | Encounter Summary ---
Author Organization [facility] Address [address] [place] [address] Care Team Providers Care Real Estate Rental Agent Name Role Phone Walt Quintero MD Primary Care Provider [phone] Encounter Details Date Type Department Care Team (Late st Contact Info) Description 02/27/2002 Outpatient Historical [facility]- [address] Entrance B, 3rd [place] [address] Wiley Das MD NO ADDRESS ON FILE ABDOMINAL PAIN RUQ (Primary Dx) Social History Tobacco Use Types Packs/Day Years Used Date Smoking Tobacco: Never Assessed Comments Unknown Sex and Gender Information Value Date Recorded Sex Assigned at Not on file Legal Sex Female 4:11 AM KNOT TYING OPERATOR Gender Identity Not on file Sexual Orientation Not on file documented as of this encounter Plan of Treatment Not on file documented as of this encounter Visit Diagnoses Diagnosis Abdominal pain, right upper quadrant- Primary documented in this encounter Additional Health Concerns Infection Onset Date Last Indicated Resolved Time R/O COVID-19 06/12/2020 06/12/2020 06/12/2020 5:13 PM KNOT TYING OPERATOR COVID-19 06/12/2020 06/12/2020 07/12/2020 8:08 PM KNOT TYING OPERATOR R/O COVID-19 09/16/2020 09/16/2020 09/16/2020 6:00 PM KNOT TYING OPERATOR documented as of this encounter Care Teams Real Estate Rental Agent Relationship Specialty Start Date End Date Walt Quintero MD [address] [phone] PCP - General 07/23/05 documented as of this encounter
--- OUTSIDE RECORDS SUMMARY | 2025-07-22 07:55 | XMS_ITS | Encounter Summary ---
Author Organization [facility] Address [address] [place] [address] Care Team Providers Care Roll Carrier Name Role Phone Walt Quintero MD Primary Care Provider [phone] Encounter Details Date Type Department Care Team (Latest Contact Info) Description 06/12/2012 Ancillary Orders [facility] Pre-Registration [place] CALL TO MAKE APPOINTMENT ONLY [address] [place] [address] Walt Quintero MD [address] [address] Other screening mammogram Social History Tobacco Use Types Packs/Day Years Used Date Smoking Tobacco: Every Day Cigarettes 0.8 24 Started: 06/23/1986; Last attempted to quit: 06/23/2010 Smokeless Tobacco: Never Comments:64 Alcohol Use Standard Drinks/Week Comments Yes 0 (1 standard drink = 0.6 oz pur e alcohol) very rare Comments No Sex and Gender Information Value Date Recorded Sex Assigned at Not on file Legal Sex Female 4:11 AM PUMPER GAUGER APPRENTICE Gender Identity Not on file Sexual Orientation Not on file Occupation Industry Job Start Date Job End Date Not on file Not on file Not on file Not on file documented as of this encounter Plan of Treatment Not on file documented as of this encounter Visit Diagnoses Diagnosis Other screening mammogram documented in this encounter Additional Health Concerns Infection Onset Date Last Indicated Resolved Time R/O COVID-19 06/12/2020 06/12/2020 06/12/2020 5:13 PM PUMPER GAUGER APPRENTICE COVID-19 06/12/2020 06/12/2020 07/12/2020 8:08 PM PUMPER GAUGER APPRENTICE R/O COVID-19 09/16/2020 09/16/2020 09/16/2020 6:00 PM PUMPER GAUGER APPRENTICE documented as of this encounter Care Teams Roll Carrier Relationship Specialty Start Date End Date Walt Quintero MD [address] [phone] PCP - General 07/23/05 documented as of this encounter
--- OUTSIDE RECORDS SUMMARY | 2025-07-22 07:55 | XMS_ITS | Encounter Summary ---
Author Organization [facility] Address [address] [place] [address] Care Team Providers Care Ultimate Hoops Referee Name Role Phone Walt Quintero MD Primary Care Provider [phone] Encounter Details Date Type Department Care Team (Latest Contact Info) Description 03/16/2004 Outpatient Historical [facility] Medicine- [place] [address] [place] [address] Dimitrios Greer MD [address] [place] [address] URIN TRACT INFECTION NOS (Primary Dx); HYPERTENSION NOS Social History Tobacco Use Types Packs/Day Years Used Date Smoking Tobacco: Never Assessed Comments Unknown Sex and Gender Information Value Date Recorded Sex Assigned at Not on file Legal Sex Female 4:11 AM PARKING ENFORCEMENT TECHNICIAN Gender Identity Not on file Sexual Orientation Not on file documented as of this encounter Plan of Treatment Not on file documented as of this encounter Visit Diagnoses Diagnosis Urinary tract infection, site not specified- Primary Unspecified essential hypertension documented in this encounter Additional Health Concerns Infection Onset Date Last Indicated Resolved Time R/O COVID-19 06/12/2020 06/12/2020 06/12/2020 5:13 PM PARKING ENFORCEMENT TECHNICIAN COVID-19 06/12/2020 06/12/2020 07/12/2020 8:08 PM PARKING ENFORCEMENT TECHNICIAN R/O COVID-19 09/16/2020 09/16/2020 09/16/2020 6:00 PM PARKING ENFORCEMENT TECHNICIAN documented as of this encounter Care Teams Ultimate Hoops Referee Relationship Specialty Start Date End Date Walt Quintero MD [address] [facility] [address] [place] [phone] PCP - General 07/23/05 documented as of this encounter
--- OUTSIDE RECORDS SUMMARY | 2025-07-22 07:55 | XMS_ITS | Encounter Summary ---
Author Organization [facility] Address [address] [place] [address] Care Team Providers Care Editor Trade Journal Name Role Phone Walt Quintero MD Primary Care Provider [phone] Encounter Details Date Type Department Care Team (Latest Contact Info) Description 10/31/2012 Ancillary Orders [facility] Pre-Registration [place] CALL TO MAKE APPOINTMENT ONLY [address] [place] [address] Walt Quintero MD [address] [address] Other sign and symptom in [...] on file Legal Sex Female 4:11 AM COLD MILL INSPECTOR Gender Identity Not on file Sexual Orientation [...] R/O COVID-19 06/12/2020 06/12/2020 06/12/2020 5:13 PM COLD MILL INSPECTOR COVID-19 06/12/2020 06/12/2020 07/12/2020 8:08 PM COLD MILL INSPECTOR R/O COVID-19 09/16/2020 09/16/2020 09/16/2020 6:00 PM COLD MILL INSPECTOR documented as of this encounter Care Teams Editor Trade Journal Relationship Specialty Start Date End Date Walt Quintero MD [address] [phone] PCP - General 07/23/05 documented as of this encounter
--- OUTSIDE RECORDS SUMMARY | 2025-07-22 07:55 | XMS_ITS | Encounter Summary ---
Author Organization [facility] Address [address] [place] [address] Care Team Providers Care Shaper And Presser Name Role Phone Walt Quintero MD Primary Care Provider [phone] Encounter Details Date Type Department Care Team (Latest Contact Info) Description 10/23/2003 Outpatient Historical [facility] Ur[facility]- [facility] [address] [place] [address] Wilver Forrester, DO [address] [place] [address] PNEUMONIA, ORGANISM NOS (Primary Dx); ASTHMA UNSPECIFIED Social History Tobacco Use Types Packs/Day Years Used Date Smoking Tobacco: Never Assessed Comments Unknown Sex and Gender Information Value Date Recorded Sex Assigned at Not on file Legal Sex Female 4:11 AM SEMICONDUCTOR WAFERS SAW OPERATOR Gender Identity Not on file Sexual Orientation Not on file documented as of this encounter Plan of Treatment Not on file documented as of this encounter Visit Diagnoses Diagnosis Pneumonia, organism unspecified(486)- Primary Pneumonia, organism unspecified Unspecified asthma(493.90) Unspecified asthma documented in this encounter Additional Health Concerns Infection Onset Date Last Indicated Resolved Time R/O COVID-19 06/12/2020 06/12/2020 06/12/2020 5:13 PM SEMICONDUCTOR WAFERS SAW OPERATOR COVID-19 06/12/2020 06/12/2020 07/12/2020 8:08 PM SEMICONDUCTOR WAFERS SAW OPERATOR R/O COVID-19 09/16/2020 09/16/2020 09/16/2020 6:00 PM SEMICONDUCTOR WAFERS SAW OPERATOR documented as of this encounter Care Teams Shaper And Presser Relationship Specialty Start Date End Date Walt Quintero MD [address] [facility] [address] [place] [address] PCP - General 07/23/05 documented as of this encounter
--- OUTSIDE RECORDS SUMMARY | 2025-07-22 07:55 | XMS_ITS | Encounter Summary ---
Author Organization [facility] Address [address] [facility] [address] Nicole: Epic Prelude ADT [place] [address] Care Team Providers Care Demo Specialist Name Role Phone Walt Quintero MD Primary Care Provider [phone] Encounter Details Date Type Department Care Team (Late st Contact Info) Description 02/27/2002 Outpatient Historical Wiley Das MD NO ADDRESS ON FILE Social History Tobacco Use Types Packs/Day Years Used Date Smoking Tobacco: Never Assessed Comments Unknown Sex and Gender Information Value Date Recorded Sex Assigned at Not on file Legal Sex Female 4:11 AM ASSESSMENT COUNSELOR Gender Identity Not on file Sexual Orientation Not on file documented as of this encounter Plan of Treatment Not on file documented as of this encounter Visit Diagnoses Not on filedocumented in this encounter Additional Health Concerns Infection Onset Date Last Indicated Resolved Time R/O COVID-19 06/12/2020 06/12/2020 06/12/2020 5:13 PM ASSESSMENT COUNSELOR COVID-19 06/12/2020 06/12/2020 07/12/2020 8:08 PM ASSESSMENT COUNSELOR R/O COVID-19 09/16/2020 09/16/2020 09/16/2020 6:00 PM ASSESSMENT COUNSELOR documented as of this encounter Care Teams Demo Specialist Relationship Specialty Start Date End Date Walt Quintero MD [address] [place] [address] PCP - General 07/23/05 documented as of this encounter
--- OUTSIDE RECORDS SUMMARY | 2025-07-22 07:55 | XMS_ITS | Encounter Summary ---
Author Organization [facility] Address [address] [place] [address] Care Team Providers Care Cigar Bander Hand Name Role Phone Walt Quintero MD Primary Care Provider [phone] Encounter Details Date Type Department Care Team (Latest Contact Info) Description 12/17/2005 Outpatient [facility] [address] [place] [phone] Walt Quintero MD [address] [facility] [address] [place] [address] Allergic Rhinitis, Cause Unspecified (Primary Dx); Pain in Joint, Lower Leg; Tobacco Use Disorder; Major Depressive Disorder, Single Episode, Unspecified Social History Tobacco Use Types Packs/Day Years Used Date Smoking Tobacco: Never Assessed Comments Unknown Sex and Gender Information Value Date Recorded Sex Assigned at Not on file Legal Sex Female 4:11 AM MEDICAL PATHOLOGIST Gender Identity Not on file Sexual Orientation Not on file documented as of this encounter Plan of Treatment Not on file documented as of this encounter Visit Diagnoses Diagnosis Allergic rhinitis, cause unspecified- Primary Pain in joint, lower leg Tobacco use disorder Major depressive disorder, single episode, unspecified documented in this encounter Additional Health Concerns Infection Onset Date Last Indicated Resolved Time R/O COVID-19 06/12/2020 06/12/2020 06/12/2020 5:13 PM MEDICAL PATHOLOGIST COVID-06/12/2020 06/12/2020 07/12/2020 8:08 PM MEDICAL PATHOLOGIST R/O COVID-19 09/16/2020 09/16/2020 09/16/2020 6:00 PM MEDICAL PATHOLOGIST documented as of this encounter Care Teams Cigar Bander Hand Relationship Specialty Start Date End Date Walt Quintero MD [address] [phone] PCP - General 07/23/05 documented as of this encounter
--- OUTSIDE RECORDS SUMMARY | 2025-07-22 07:55 | XMS_ITS | Encounter Summary ---
Author Organization [facility] Address [address] [place] [address] Care Team Providers Care Newsagent Name Role Phone Walt Quintero MD Primary Care Provider Encounter Details Date Type Department Care Team (Latest Contact Info) Description 08/12/2005 Outpatient Historical [facility] Therapy Services [address] [place] [address] [place] [address] Jr Blue MD NO ADDRESS ON FILE PHYSICAL THERAPY NEC (Primary Dx) Social History Tobacco Use Types Packs/Day Years Used Date Smoking Tobacco: Never Assessed Comments Unknown Sex and Gender Information Value Date Recorded Sex Assigned at Not on file Legal Sex Female 4:11 AM CARGO SERVICES COORDINATOR Gender Identity Not on file Sexual Orientation Not on file documented as of this encounter Plan of Treatment Not on file documented as of this encounter Visit Diagnoses Diagnosis Other physical therapy- Primary documented in this encounter Additional Health Concerns Infection Onset Date Last Indicated Resolved Time R/O COVID-19 06/12/2020 06/12/2020 06/12/2020 5:13 PM CARGO SERVICES COORDINATOR COVID-19 06/12/2020 06/12/2020 07/12/2020 8:08 PM CARGO SERVICES COORDINATOR R/O COVID-19 09/16/2020 09/16/2020 09/16/2020 6:00 PM CARGO SERVICES COORDINATOR documented as of this encounter Care Teams Newsagent Relationship Specialty Start Date End Date Walt Quintero MD [address] [address] PCP - General 07/23/05 documented as of this encounter
--- OUTSIDE RECORDS SUMMARY | 2025-07-22 07:55 | XMS_ITS | Encounter Summary ---
Author Organization [facility] Address [address] [place] [address] Care Team Providers Care Delivery Driver Assistant Name Role Phone Walt Quintero MD Primary Care Provider [phone] Encounter Details Date Type Department Care Team (Latest Contact Info) Description 04/16/[address] [facility] Medicine- [place] [address] [place] [address] Dimitrios Greer MD [address] [place] [address] HYPERTENSION NOS (Primary Dx); ANXIETY STATE NOS; DEPRESSIVE DISORDER NEC; ABN BLOOD CHEMISTRY NEC Social History Tobacco Use Types Packs/Day Years Used Date Smoking Tobacco: Never Assessed Comments Unknown Sex and Gender Information Value Date Recorded Sex Assigned at Not on file Legal Sex Female 4:11 AM MANAGER INTERMEDIATE Gender Identity Not on file Sexual Orientation Not on file documented as of this encounter Plan of Treatment Not on file documented as of this encounter Visit Diagnoses Diagnosis Unspecified essential hypertension- Primary Anxiety state, unspecified Depressive disorder, not elsewhere classified Other abnormal blood chemistry documented in this encounter Additional Health Concerns Infection Onset Date Last Indicated Resolved Time R/O COVID-19 06/12/2020 06/12/2020 06/12/2020 5:13 PM MANAGER INTERMEDIATE COVID-19 06/12/2020 06/12/2020 07/12/2020 8:08 PM MANAGER INTERMEDIATE R/O COVID-19 09/16/2020 09/16/2020 09/16/2020 6:00 PM MANAGER INTERMEDIATE documented as of this encounter Care Teams Delivery Driver Assistant Relationship Specialty Start Date End Date Walt Quintero MD [address] [address] PCP - General 07/23/05 documented as of this encounter
--- OUTSIDE RECORDS SUMMARY | 2025-07-22 07:55 | XMS_ITS | Encounter Summary ---
Author Organization [facility] Address [address] [place] [address] Care Team Providers Care Seafood Service Team Member Name Role Phone Walt Quintero MD Primary Care Provider [phone] Encounter Details Date Type Department Care Team (Latest Contact Info) Description 02/21/2002 Outpatient Historical [facility]- [place] [address] [place] [address] Sachin Howard III, MD [address] [place] [address] ABDOMINAL PAIN UNSPEC SITE (Primary Dx) Social History Tobacco Use Types Packs/Day Years Used Date Smoking Tobacco: Never Assessed Comments Unknown Sex and Gender Information Value Date Recorded Sex Assigned at Not on file Legal Sex Female 4:11 AM OFFICE TECHNOLOGIST Gender Identity Not on file Sexual Orientation Not on file documented as of this encounter Plan of Treatment Not on file documented as of this encounter Visit Diagnoses Diagnosis Abdominal pain, unspecified site- Primary documented in this encounter Additional Health Concerns Infection Onset Date Last Indicated Resolved Time R/O COVID-19 06/12/2020 06/12/2020 06/12/2020 5:13 PM OFFICE TECHNOLOGIST COVID-19 06/12/2020 06/12/2020 07/12/2020 8:08 PM OFFICE TECHNOLOGIST R/O COVID-19 09/16/2020 09/16/2020 09/16/2020 6:00 PM OFFICE TECHNOLOGIST documented as of this encounter Care Teams Seafood Service Team Member Relationship Specialty Start Date End Date Walt Quintero MD [address] [phone] PCP - General 07/23/05 documented as of this encounter
--- OUTSIDE RECORDS SUMMARY | 2025-07-22 07:56 | XMS_ITS | Encounter Summary ---
Author Organization [facility] Address [address] [place] [address] Care Team Providers Care Pararescue Craftsman Name Role Phone Walt Quintero MD Primary Care Provider [phone] Encounter Details Date Type Department Care Team (Late st Contact Info) Description 09/26/2004 Outpatient Historical [facility] [place] [address] [place] [phone] Social History Tobacco Use Types Packs/Day Years Used Date Smoking Tobacco: Never Assessed Comments Unknown Sex and Gender Information Value Date Recorded Sex Assigned at Not on file Legal Sex Female 4:11 AM SPEEDOMETER MECHANIC Gender Identity Not on file Sexual Orientation Not on file documented as of this encounter Plan of Treatment Not on file documented as of this encounter Visit Diagnoses Not on filedocumented in this encounter Additional Health Concerns Infection Onset Date Last Indicated Resolved Time R/O COVID-19 06/12/2020 06/12/2020 06/12/2020 5:13 PM SPEEDOMETER MECHANIC COVID-19 06/12/2020 06/12/2020 07/12/2020 8:08 PM SPEEDOMETER MECHANIC R/O COVID-19 09/16/2020 09/16/2020 09/16/2020 6:00 PM SPEEDOMETER MECHANIC documented as of this encounter Care Teams Pararescue Craftsman Relationship Specialty Start Date End Date Walt Quintero MD [address] [place] [address] PCP - General 07/23/05 documented as of this encounter
--- OUTSIDE RECORDS SUMMARY | 2025-07-22 07:56 | XMS_ITS | Encounter Summary ---
Author Organization [facility] Address [address] [place] [address] Care Team Providers Care Vocational Nurse Lvn Name Role Phone Walt Quintero MD Primary Care Provider [phone] Encounter Details Date Type Department Care Team (Late Contact Info) Description 07/16/2025 External Device Data ST[place] ABSTRACTION Provider, Abstract NO ADDRESS ON FILE Social History Tobacco Use Types Packs/Day Years Used Date Smoking Tobacco: Former Cigarettes 1 35 Smokeless Tobacco: Never Comments:Quit smokin Alcohol Use Standard Drinks/Week Comments No 0 (1 standard drink = 0.6 oz pur e alcohol) Comments No Sex and Gender Information Value Date Recorded Sex Assigned at Not on file Legal Sex Female 3:52 PM CUTTER ALUMINUM SHEET Gender Identity Not on file Sexual Orientation Not on file documented as of this encounter Plan of Treatment Upcoming Encounters Date Type Department Care Team (Late st Contact Info) Description 10/07/2025 3:00 PM CDT Office Visit [facility] [address] [place] [address] Walt Quintero MD [address] [facility] [address] [place] [address] 10/14/2025 8:00 AM CDT Hospital Encounter [facility] Endoscopy [address] [place] [address] Junito Terrazas MD [address] [place] [address] 10/14/2025 8:00 AM CDT - 10/14/2025 8:20 AM CDT Surgery [facility] Endoscopy [address] [place] [place] [address] Junito Terrazas MD [address] [place] [address] COLONOSCOPY 10/29/2025 1:00 PM CDT Office Visit [facility] [address] [place] [address] Shyam Birmingham MD [address] [place] [address] Scheduled Procedures Name Priority Associated Diagnoses Date/Ti me COLONOSCOPY Screening for colon cancer 10/14/2025 8:00 AM CDT documented as of this encounter Goals Goal Patient Goal Type Associated Problems Recent Progress Patient-Stated? Author Autogenerat ed Goal Care Plan Autogenerated Problem No PradhanNuryssana Leigh documented as of this encounter Visit Diagnoses Not on filedocumented in this encounter Additional Health Concerns Active Problems Noted Date Diagnosed Date Autogenerated Problem 02/11/2025 Assessment Noted Time PHQ-9 Depression Total Score: 4 10/05/19 25 8:38 AM CDT documented as of this encounter Care Teams Vocational Nurse Lvn Relationship Specialty Start Date End Date Walt Quintero MD [address] [place] [address] PCP - General 07/23/05 documented as of this encounter
--- OUTSIDE RECORDS SUMMARY | 2025-07-22 07:56 | XMS_ITS | Encounter Summary ---
Author Organization [facility] Address [address] [place] [address] Care Team Providers Care Tube Building Machine Operator Name Role Phone Walt Quintero MD Primary Care Provider Encounter Details Date Type Department Care Team (Latest Contact Info) Description 09/29/2004 Outpatient Historical [facility] Medicine- [place] [address] [place] [phone] Dimitrios Greer MD [address] [place] [address] Skin sensation disturb (Primary Dx) Social History Tobacco Use Types Packs/Day Years Used Date Smoking Tobacco: Never Assessed Comments Unknown Sex and Gender Information Value Date Recorded Sex Assigned at Not on file Legal Sex Female 4:11 AM SOLAR INSTALLATION FOREMAN Gender Identity Not on file Sexual Orientation Not on file documented as of this encounter Plan of Treatment Not on file documented as of this encounter Visit Diagnoses Diagnosis Skin sensation disturb- Primary Disturbance of skin sensation documented in this encounter Additional Health Concerns Infection Onset Date Last Indicated Resolved Time R/O COVID-19 06/12/2020 06/12/2020 06/12/2020 5:13 PM SOLAR INSTALLATION FOREMAN COVID-19 06/12/2020 06/12/2020 07/12/2020 8:08 PM SOLAR INSTALLATION FOREMAN R/O COVID-19 09/16/2020 09/16/2020 09/16/2020 6:00 PM SOLAR INSTALLATION FOREMAN documented as of this encounter Care Teams Tube Building Machine Operator Relationship Specialty Start Date End Date Walt Quintero MD [address] [phone] PCP - General 07/23/05 documented as of this encounter
--- OUTSIDE RECORDS SUMMARY | 2025-07-22 07:56 | XMS_ITS | Encounter Summary ---
Author Organization [facility] Address [address] [place] [address] Care Team Providers Care Diet Tech Name Role Phone Walt Quintero MD Primary Care Provider Encounter Details Date Type Department Care Team (Latest Contact Info) Description 10/06/2004 Outpatient Historical [facility] Neurology [address] [facility] [address] [place] [address] Kacey Narvaez MD [address] [facility] [address] [place] [address] IDIO PERIPH NEURPTHY NOS (Primary Dx) Social History Tobacco Use Types Packs/Day Years Used Date Smoking Tobacco: Never Assessed Comments Unknown Sex and Gender Information Value Date Recorded Sex Assigned at Not on file Legal Sex Female 4:11 AM DIRECTOR OF SUSTAINABILITY Gender Identity Not on file Sexual Orientation Not on file documented as of this encounter Plan of Treatment Not on file documented as of this encounter Visit Diagnoses Diagnosis Unspecified hereditary and idiopathic peripheral neuropathy- Primary documented in this encounter Additional Health Concerns Infection Onset Date Last Indicated Resolved Time R/O COVID-19 06/12/2020 06/12/2020 06/12/2020 5:13 PM DIRECTOR OF SUSTAINABILITY COVID-19 06/12/2020 06/12/2020 07/12/2020 8:08 PM DIRECTOR OF SUSTAINABILITY R/O COVID-19 09/16/2020 09/16/2020 09/16/2020 6:00 PM DIRECTOR OF SUSTAINABILITY documented as of this encounter Care Teams Diet Tech Relationship Specialty Start Date End Date Walt Quintero MD [address] [phone] PCP - General 07/23/05 documented as of this encounter
--- OUTSIDE RECORDS SUMMARY | 2025-07-22 07:56 | XMS_ITS | Encounter Summary ---
Author Organization [facility] Address [address] [place] [address] Care Team Providers Care Nitroglycerin Supervisor Name Role Phone Walt Quintero MD Primary Care Provider [phone] Encounter Details Date Type Department Care Team (Latest Contact Info) Description 12/09/2009 Ancillary Orders [facility] [address] [place] [address] Walt Quitnero MD [address] [place] [address] Other (Abnormal) Findings on Radiological Examination of Breast Social History Tobacco Use Types Packs/Day Years Used Date Smoking Tobacco: Every Day Cigarettes 0.8 24 Alcohol Use Standard Drinks/Week Comments Yes 0 (1 standard drink = 0.6 oz pur e alcohol) very rare Comments No Sex and Gender Information Value Date Recorded Sex Assigned at Not on file Legal Sex Female 4:11 AM BROKE MAN Gender Identity Not on file Sexual Orientation Not on file documented as of this encounter Plan of Treatment Not on file documented as of this encounter Results * MAMMO BREAST US LT (01/06/2010 1:59 PM CDT) Anatomical Region Laterality Modality Breast Left Ultrasound Narrative 01/13/2010 2:41 PM CDT LEFT BREAST ULTRASOUND: The patient previously had a screening study on 12/04/2009. At that time, she had a complaint of focal pain in the left breast. We targeted the examination in the left breast to the lateral aspect. All of those areas from superior to inferolaterally have a normal appearance. No masses or cysts. Physical examination did not reveal any focal abnormalities or signs of infection. SUMMARY: No cause for the patient's breast pain/tenderness identified with this normal ultrasound. Bilateral screening in one year's time recommended. Clinical correlation. /annabelle Procedure Note Eduin Calderón MD - 01/13/2010 LEFT BREAST ULTRASOUND: The patient previously had a screening study on 12/04/2009. At that time,she had a complaint of focal pain in the left breast. We targeted the examination in the left breast to the lateral aspect. Allof those areas from superior to inferolaterally have a normal appearance.No masses or cysts. Physical examination did not reveal any focal abnormalities or signs ofinfection. SUMMARY: No cause for the patient's breast pain/tenderness identified with thisnormal ultrasound. Bilateral screening in one year's time recommended.Clinical correlation. /annabelle us Walt Quintero MD MAMMO ORDERABLES Final Result documented in this encounter Visit Diagnoses Diagnosis Other (abnormal) findings on radiological examination of breast Other (abnormal) findings on radiological examination of breast documented in this encounter Additional Health Concerns Infection Onset Date Last Indicated Resolved Time R/O COVID-19 06/12/2020 06/12/2020 06/12/2020 5:13 PM BROKE MAN COVID-19 06/12/2020 06/12/2020 07/12/2020 8:08 PM BROKE MAN R/O COVID-19 09/16/2020 09/16/2020 09/16/2020 6:00 PM BROKE MAN documented as of this encounter Care Teams Nitroglycerin Supervisor Relationship Specialty Start Date End Date Walt Quintero MD [address] [place] [address] PCP - General 07/23/05 documented as of this encounter
--- OUTSIDE RECORDS SUMMARY | 2025-07-22 07:56 | XMS_ITS | Clinical Summary ---
Author Organization [facility] Address [address] Nicole: Epic Prelude ADT [place] [address] Care Team Providers Care Options Trader Name Role Phone Walt Quintero MD Primary Care Provider [phone] Allergies No known active allergies Medications aspirin (ECOTRIN EC) 81 mg Tablet, Delayed Release (E.C.) Take 81 mg by mouth daily. Active calcium carbonate 250 mg-vitamin D3 3.125 mcg (125 unit) tablet Take by mouth daily. Active magnesium oxide (MAG-OX) 400 mg (241.3 mg magnesium) tablet Take 400 mg by mouth daily. Active hydroCHLOROthiazid e 25 mg tablet Take 1 Tablet (25 mg) by mouth daily. 90 Tablet 3 5 Active lisinopriL (PRINIVIL) 40 mg tablet Take 1 Tablet (40 mg) by mouth daily. 90 Tablet 3 5 Active metoprolol tartrate (LOPRESSOR) 100 mg tablet Take 1/2 (one-half) tablet by mouth twice daily 90 Tablet 3 5 Active triamcinolone acetonide (KENALOG) 0.1 % Cream Apply to affected area 2 times daily as needed (rash). 30 Gram 5 Active atorvastatin (LIPITOR) 40 mg tabletIndications: Artery dissection,Primary hypertension,Mixed hyperlipidemia TAKE 1 TABLET BY MOUTH ONCE DAILY AT BEDTIME 90 Tablet 3 5 Active HYDROcodone-acetam inophen (NORCO) 7.5-325 mg TabletIndications: Neck pain Take 1 Tablet by mouth every 8 hours as needed for Pain. 30 Tablet 5 Active HYDROcodone-acetam inophen (NORCO) 7.5-325 mg TabletIndications: Neck pain Take 1 Tablet by mouth every 8 hours as needed for Pain. 30 Tablet 5 025 Discontin ued(Reord er) Active Problems Problem Noted Date Diagnosed Date Dyslipidemia 09/21/2023 Acute bilateral thoracic back pain 01/20/2023 Tingling in extremities 01/20/2023 Arthralgia of left wrist 01/02/2023 Smokers' cough 08/20/2021 Pre-diabetes 01/18/2018 Overview (11/20/2020): 107 12/2017 HTN (hypertension) 02/07/2014 Pain in joint, shoulder region 05/17/2013 Neck pain 03/20/2013 Smoker 01/23/[address] scan: thrombosed appearing superior mesenteric artery graft s/p graft 06/0301/23/2012 Personal history of colonic polyps 11/22/2011 Thoracic aortic aneurysm (TAA) 09/28/2011 Overview (11/19/2020): 09/28/11: She has aortic root aneurysmal dilatation at 4 cm and should have a repeat CT scan chest to reassess this in one year. 05/2012: Repeat imaging was performed. Aorta measuring 3.5 cm normal size. No identification of aneurysm. 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 Fibromyalgia Resolved Problems Problem Noted Date Diagnosed Date Resolved Date Impingement syndrome, shoulder 05/17/2013 07/23/2022 Head ache 03/20/2013 07/23/2022 Back pain 03/20/2013 07/23/2022 Breast hypertrophy 03/20/2013 2 Dysphagia 03/28/2012 07/23/2022 Chest pain 01/23/2012 07/23/2022 Hypokalemia 01/23/2012 07/23/2022 Other specified family circumstances 10/07/2011 01/23/2012 Thumb pain 05/21/2011 07/23/2022 Depression 08/06/2008 08/20/2021 Unspecified essential hypertension 02/07/2014 Tobacco dependence 1 Encounters Date Type Department Care Team Description 07/16/2025 External Device Data STL ABSTRACTION Provider, Abstract [facility] [place] [address] Walt Quintero MD Neck pain 06/18/2025 External Device Data STL ABSTRACTION Provider, Abstract 05/24/2025 [facility] [address] [place] [address] Walt Quintero MD Neck pain 05/14/2025 [facility] [address] [place] [address] Shyam Birmingham MD History of thrombosed mesenteric artery; Primary hypertension; Mixed hyperlipidemia from Last 3 Months Family History Medical History Relation Name Comments Diabetes Father Heart Disease Father Breast Cancer Maternal Grandmother Gertrudis 60s Heart Disease Maternal Grandmother Gertrudis Diabetes Mother Heart Disease Mother Hypertension Mother Stroke Mother Cancer - Other Neg Hx Colon Cancer Neg Hx Melanoma Neg Hx Ovarian Cancer Neg Hx Pancreatic Cancer Neg Hx Uterine or Endometrial Cance r, Not Including Cervical Neg Hx Relation Name Status Comments Brother 1 Alive Brother 2 Alive Father may have had af ib Maternal Grandfather Maternal Grandmother Gertrudis Mother cad, stents Paternal Grandfather Paternal Grandmother Sister 1 Alive Sister 2 Alive Sister 3 Alive Son Alive Social History Tobacco Use Types Packs/Day Years Used Date Smoking Tobacco: Former Cigarettes 1 35 Smokeless Tobacco: Never Tobacco Cessation:Counseling Given: Not Answered Comments:Quit smokin Alcohol Use Standard Drinks/Week Comments No 0 (1 standard drink = 0.6 oz pur e alcohol) Comments No Sex and Gender Information Value Date Recorded Sex Assigned at Not on file 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 Gender Identity Not on file Sexual Orientation Not on file Last Filed Vital Signs Vital Sign Reading Time Taken Comments Blood Pressure 122/74 04/09/2025 12:56 PM CDT Pulse 96 04/09/2025 12:56 PM CDT Temperature 36.5 C (97.7 F) 04/09/2025 12:56 PM CDT Respiratory Rate 16 08/05/2024 10:50 AM 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 Oxygen Saturation 97% 04/09/2025 12:56 PM CDT Inhaled Oxygen Concentration - - Weight 65.8 kg (145 lb) 04/09/2025 12:56 PM CDT Height 162.6 cm (5' 4 ) 04/09/2025 12:56 PM CDT Body Mass Index 24.89 04/09/2025 12:56 PM CDT Plan of Treatment Upcoming Encounters Date Type Department Care Team (Late st Contact Info) Description 10/07/2025 3:00 PM CDT [facility] [address] [place] [address] Walt Quintero MD [address] [facility] [address] [place] [address] 10/14/2025 8:00 AM CDT Hospital Encounter [facility] Endoscopy [address] [place] [address] Junito Terrazas MD [address] [facility] [address] [place] [address] 10/14/2025 8:00 AM CDT - 10/14/2025 8:20 AM CDT Surgery [facility] Endoscopy [address] [place] [address] Junito Terrazas MD [address] [place] [address] COLONOSCOPY 10/29/2025 1:00 PM CDT Office Visit [facility] [address] [facility] [address] [place] [address] Shyam Birmingham MD [address] [place] [address] Scheduled Procedures Name Priority Associated Diagnoses Date/Ti me COLONOSCOPY Screening for colon cancer 10/14/2025 8:00 AM CDT Health Maintenance Due Date Last Done Comments DTAP/TDAP/TD VACCINES (1 - Tdap) 1984 FIT-DNA Q 3 years 2010 FIT/FOBT Q 1 year 2010 Flex Sig/CT Colonography Q 5 years 2010 COLORECTAL SCREENING 11/22/2014 11/23/2011, 11/23/19 Colorectal Cancer Screening 11/22/2014 RSV VACCINE (60+ or ) (1 - Risk 50-74 years 1-dose series) 2015 ZOSTER VACCINE (1 of 2) 2015 BREAST CANCER SCREENING 12/21/2024 12/22/19 24, 11/08/2022, 11/07/2012, Additional history exists INFLUENZA VACCINE (#1) 2025 08/10/2018 Preventative Visit- Commercial Completed 10/04/2024, 09/21/2023 HEPATITIS B VACCINES Aged Out No long er eligible based on patient's age to complete this topic Goals Goal Patient Goal Type Associated Problems Recent Progress Patient-Stated? Author Autogenerat ed Goal Care Plan Autogenerated Problem No Clari Pradhan [employer] Implanted Type Area Student Life Coordinator Device Identifier Shelf Expiration Date Model / Serial / Lot Anchr Tnds Biocmp Swvlck 7mm [id number] - Sna Implanted:Qty : 1 on 07/16/2013 [place] Right: Shoulder [employer] 10/23/2014 [id number] -[id number] / NA / [id number] Patches,Pledg ets,Leila,Benny rics-1-Talala Ptfe Thck 1.6mmx2.5x2.5 cm [id number] Implanted:Qty : 1 on 06/23/2010 Graft Arterial CR BARD- [employer] 04/24/2015 [id number] / / [id number] Procedures Procedure Name Priority Date/Time Associated Diagnosis Comments MAMMO 3D YVETTE SCREEN BILAT W OR WO CAD Routine 12/22/2023 3:02 PM CDT Visit for screening mammogram ENDOSCOPY, COLON, DIAGNOSTIC Routine 11/23/2011 10:56 AM CDT from Last 3 Months or Most Recently Relevant to Health Maintenance Results * MAMMO 3D YVETTE SCREEN BILAT W OR WO CAD (12/22/2023 3:02 PM CDT) Anatomical Region Laterality Modality Breast Bilateral Mammography Impressions 12/27/2023 12:00 PM CDT : No mammographic evidence of malignancy. BI-RADS ASSESSMENT: 1 - Negative RECOMMENDATION: Routine annual screening mammography. Narrative 12/27/2023 12:00 PM CDT EXAM: MAMMO SCRN BILAT 3D YVETTE W OR WO CAD INDICATION: Screening COMPARISON: 11/08/2022 MAMMO SCRN BILAT 3D YVETTE W OR WO CAD BREAST COMPOSITION: There are scattered areas of fibroglandular density. FINDINGS: RIGHT BREAST: There are no suspicious masses, calcifications, or areas of architectural distortion. LEFT BREAST: There are no suspicious masses, calcifications, or areas of architectural distortion. Lorena [place] [facility] MAMMO ORDERABLES F inal Result * ENDOSCOPY, COLON, DIAGNOSTIC (11/23/2011 10:56 AM CDT) 11/23/2011 10:5 6 AM CDT Narrative Procedure Note Gilles Rasmussen MD - 11/22/2011 12:35 PM CDT Procedures signed by Gilles Rasmussen MD at 11/23/2011 10:56 AM Author: Gilles Rasmussen MD Service: -- Author Type: Physician Filed: 11/23/2011 10:56 AM Date of Service: 11/23/2011 9:34 AM Status:Signed Loan Secretary: Gilles Rasmussen MD (Physician) Procedure Orders 1. ENDOSCOPY, COLON, DIAGNOSTIC [[id number]] ordered by at 11/08/11 0952 [facility] ENDOSCOPY [place], [place] NAME BON LEVINE # [id number] 1965 AGE 46Y PHYSICIAN Gilles Rasmussen MD DATE: 11/22/2011 REFERRING PHYSICIAN: Walt Quintero MD PROCEDURE: Colonoscopy. INDICATIONS: Three-month followup colonoscopy. The patient had largepolyps resected 3 months ago. MEDICATIONS: Versed 6 mg IV and fentanyl 100 mcg IV in titrated doses. DESCRIPTION OF THE PROCEDURE: After reviewing the risks, benefits, andalternatives of the procedure with the patient, she signed a consent form.She was placed in the left lateral decubitus position and IV conscioussedation was administered, while monitoring blood pressure, pulse oximetryand EKG. The colonoscope was introduced through the rectum and underdirect visualization was advanced to the terminal ileum. Carefulinspection of the mucosa was made as the colonoscope was withdrawn. Thequality of the preparation was good. The patient tolerated the procedurewell and there were no immediate complications. FINDINGS: Retroflex examination in the rectum revealed small internalhemorrhoids. Four diminutive transverse colon polyps were removed withthe cold snare. A diminutive ascending colon polyps was removed with thecold snare. Rest of the visualized colonic mucosa was normal as was theterminal ileum. IMPRESSION: Five diminutive polyps. RECOMMENDATIONS: I will contact the patient with recommendations oncepathology is known. Gilles Rasmusesn MD medq D: [id number] V: [id number] cc:Walt Quintero MD Gilles Rasmussen MD GI PROCEDURE ORDERABLES Final Result [facility] from Last 3 Months or Most Recently Relevant to Health Maintenance Additional Health Concerns Active Problems Noted Date Diagnosed Date Autogenerated Problem 02/11/2025 Insurance GENERIC PAYOR 90 DEGREE BENEFITS Care Teams Options Trader Relationship Specialty Start Date End Date Walt Quintero MD [address] [address] PCP - General 07/23/05
--- OUTSIDE RECORDS SUMMARY | 2025-07-22 07:56 | XMS_ITS | Clinical Summary ---
Author Organization [facility] Address [address] [place] [address] Care Team Providers Care Drawer In Hand Name Role Phone Walt Quintero MD Primary Care Provider [phone] Allergies No known active allergies Medications aspirin (ECOTRIN EC) 81 mg Oral TbEC Take 1 Tab by mouth daily after breakfast. 30 Tab 0 05/04/2009 Active triamcinolone acetonide (KENALOG) 0.1 % Cream Apply to affected area 2 times daily. 30 Gram 02/15/2020 Active metoprolol tartrate (LOPRESSOR) 100 mg tablet Take 1/2 (one-half) tablet by mouth twice daily 90 Tablet 06/24/2020 Active HYDROCHLOROTHIA ZIDE 25 mg tablet Take 1 tablet by mouth once daily 90 Tablet 11/07/2020 Active HYDROcodone-theodora taminophen (NORCO) 7.5-325 mg TabletIndicatio ns:Neck pain Take 1 Tablet by mouth every 8 hours as needed for Pain, Moderate. 60 Tablet 12/03/2020 Active lisinopriL (PRINIVIL) 40 mg tablet Take 1 tablet by mouth once daily 90 Tablet 01/14/2021 Active Active Problems Problem Noted Date Diagnosed Date Pre-diabetes 01/18/2018 Overview (01/18/2018): 107 12/2017 HTN (hypertension) 02/07/2014 Impingement syndrome, shoulder 05/17/2013 Pain in joint, shoulder region 05/17/2013 Breast hypertrophy 03/20/2013 Back pain 03/20/2013 Neck pain 03/20/2013 Head ache 03/20/2013 Dysphagia 03/28/2012 Chest pain 01/23/[address] scan: thrombosed appearing superior mesenteric artery graft s/p graft 06/0301/23/2012 Smoker 01/23/2012 Hypokalemia 01/23/2012 Personal history of colonic polyps 11/22/2011 Hematochezia 08/05/2011 Trigger thumb of right hand 05/26/2011 Thumb pain 05/21/2011 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 05/2012: Repeat imaging was performed. Aorta measuring 3.5 cm normal size. No identification of aneurysm. f Unspecified essential hypertension 02/07/2014 Tobacco dependence 1 Family History Medical History Relation Name Comments Diabetes Father Breast Cancer Maternal Grandmother 60s Heart Disease Maternal Grandmother Diabetes Mother Hypertension Mother Stroke Mother Colon Cancer Neg Hx Ovarian Cancer Neg Hx Relation Name Status Comments Brother 1 Alive Brother 2 Alive Father Alive Maternal Grandfather Maternal Grandmother Mother Alive Paternal Grandfather Paternal Grandmother Sister 1 Alive Sister 2 Alive Sister 3 Alive Son Alive Social History Tobacco Use Types Packs/Day Years Used Date Smoking Tobacco: Every Day Cigarettes 0.8 24 Smokeless Tobacco: Never Tobacco Cessation:Ready to Q uit: No; Counseling Given: Yes Comments:64 Alcohol Use Standard Drinks/Week Comments No 0 (1 standard drink = 0.6 oz pur e alcohol) Comments No Sex and Gender Information Value Date Recorded Sex Assigned at Not on file Legal Sex Female 4:11 AM REGIONAL ENGAGEMENT CONSULTANT Gender Identity Not on file Sexual Orientation Not on file Occupation Industry Job Start Date Job End Date Not on file Not on file Not on file Not on file Last Filed Vital Signs Vital Sign Reading Time Taken Comments Blood Pressure 122/78 08/19/2020 9:18 AM REGIONAL ENGAGEMENT CONSULTANT Pulse 76 08/19/2020 9:18 AM REGIONAL ENGAGEMENT CONSULTANT Temperature 36.3 C (97.3 F) 08/19/2020 9:18 AM REGIONAL ENGAGEMENT CONSULTANT Respiratory Rate 16 02/07/2019 8:55 AM CDT Oxygen Saturation 98% 08/19/2020 9:18 AM REGIONAL ENGAGEMENT CONSULTANT Inhaled Oxygen Concentration - - Weight 75.8 kg (167 lb) 08/19/2020 9:18 AM REGIONAL ENGAGEMENT CONSULTANT Height 162.6 cm (5' 4 ) 08/19/2020 9:18 AM REGIONAL ENGAGEMENT CONSULTANT Body Mass Index 28.67 08/19/2020 9:18 AM REGIONAL ENGAGEMENT CONSULTANT Plan of Treatment Health Maintenance Due Date Last Done Comments DTAP/TDAP/TD VACCINES (1 - Tdap) 1984 FIT-DNA Q 3 years 2010 FIT/FOBT Q 1 year 2010 Flex Sig/CT Colonography Q 5 years 2010 BREAST CANCER SCREENING 11/07/2013 11/08/19 13, 06/23/2011, 12/04/2009 COLORECTAL SCREENING 11/22/2014 11/23/2011, 11/22/2011, 08/05/2011 Colorectal Cancer Screening 11/22/2014 RSV VACCINE (60+ or ) (1 - Risk 50-74 years 1-dose series) 2015 ZOSTER VACCINE (1 of 2) 2015 INFLUENZA VACCINE (#1) 2025 08/10/2018 HEPATITIS B VACCINES Aged Out No long er eligible based on patient's age to complete this topic Medical Devices Implanted Type Area Milk Vendor Device Identifier Shelf Expiration Date Model / Serial / Lot Anchr Tnds Biocmp Swvlck 7mm [id number] - Sna Implanted:Qty: 1 on 07/16/2013 at [facility] Right: Shoulder [employer] 10/23/2014 [id number] / NA / [id number] Patches,Pledget s,Leila,Fabrics -1-Swain Ptfe Thck 1.6mmx2.5x2.5cm [id number] Implanted:Qty: 1 on 06/23/2010 at [facility] Explanted:(Nithin mendes not on file) Graft Arterial CR BARD- [employer] 04/24/2015 [id number] / / [id number] Procedures Procedure Name Priority Date/Time Associated Diagnosis Comments MAMMO DIAGNOSTIC BILATERAL W OR WO CAD Routine 11/07/2012 10:49 AM CDT Nipple discharge in female ENDOSCOPY, COLON, DIAGNOSTIC Routine 11/23/2011 10:56 AM CDT Personal history of colonic polyps from Last 3 Months or Most Recently Relevant to Health Maintenance Results * MAMMO DIGITAL DIAG BILAT (11/07/2012 10:49 AM CDT) Anatomical Region Laterality Modality Breast Bilateral Mammography 11/07/2012 10:0 9 AM CDT Narrative 11/07/2012 3:56 PM CDT BILATERAL DIAGNOSTIC MAMMOGRAM 11/07/2012 HISTORY: The patient is 47 years of age and is here with left nipple discharge. The patient states that it was black initially and now it as milky in color. She has had it for about two months. She does not see it on her clothes so it is not spontaneous. She only sees it with expression. She states that she thinks it is from two ducts. There is a family history in her maternal grandmother. We do have notes from Dr. Quintero dated 10/31/2012 indicating that she presented there with that complaint and the notes indicate that there were no breast masses palpable on clinical breast examination. Apparently the discharge was reproduced and tested and according to the notes it was negative for blood. A prolactin level was done and it was normal. MAMMOGRAM: Bilateral craniocaudal and oblique views show average breast parenchymal density. No discrete or suspicious findings are seen on either side. No dominant masses or suspicious calcifications are seen. There is no significant change compared with prior exams of 06/23/2011 and 12/04/2009. No suspicious findings are seen. After the mammogram I visited with the patient and confirmed the history and I had her try to express discharge and she was unable to do so. This digital mammogram was also analyzed by the Computer Aided Detection System (CAD), [employer], Version 8.3. CONCLUSION: Benign finding category 2B. The diagnostic mammogram is unremarkable. I would recommend clinical correlation and followup with Dr. Quintero. If the discharge is recurrent or persistent then I would recommend surgical consultation. Otherwise, I would recommend followup screening mammogram in one year. The patient was given a result/recommendation letter. Carly - uploaded from [employer] - Procedure Note Luanne Art MD - 11/07/2012 BILATERAL DIAGNOSTIC MAMMOGRAM 11/07/2012 HISTORY: The patient is 47 years of age and is here with left nipple discharge. The patient states that it was black initially and now it as milky in color. She has had it for about two months. She does not see it on her clothes so it is not spontaneous. She only sees it with expression. She states that she thinks it is from two ducts. There is a family history in her maternal grandmother. We do have notes from Dr. Quintero dated 10/31/2012 indicating that she presented there with that complaint and the notes indicate that there were no breast masses palpable on clinical breast examination. Apparently the discharge was reproduced and tested and according to the notes it was negative for blood. A prolactin level was done and it was normal. MAMMOGRAM: Bilateral craniocaudal and oblique views show average breast parenchymal density. No discrete or suspicious findings are seen on either side. No dominant masses or suspicious calcifications are seen. There is no significant change compared with prior exams of 06/23/2011 and 12/04/2009. No suspicious findings are seen. After the mammogram I visited with the patient and confirmed the history and I had her try to express discharge and she was unable to do so. This digital mammogram was also analyzed by the Computer Aided Detection System (CAD), [employer], Version 8.3. CONCLUSION: Benign finding category 2B. The diagnostic mammogram is unremarkable. I would recommend clinical correlation and followup with Dr. Quintero. If the discharge is recurrent or persistent then I would recommend surgical consultation. Otherwise, I would recommend followup screening mammogram in one year. The patient was given a result/recommendation letter. Carly - uploaded from [employer] - Walt Quintero MD MAMMO ORDERABLES Final Result * ENDOSCOPY, COLON, DIAGNOSTIC (11/23/2011 10:56 AM CDT) Narrative Transcriptions Gilles Rasmussen MD - 11/23/2011 9:34 AM CDT [facility] [place], [place] NAME BON LEVINE CSN # [id number] 1965 AGE 46Y PHYSICIAN Gilles Rasmussen MD [...] patient with recommendations oncepathology is known. Gilles Rasmussen MD medq D: [id number] V: [id number] cc:Walt Quintero MD Gilles Rasmussen MD GI PROCEDURE ORDERABLES Final Result from Last 3 Months or Most Recently Relevant to Health Maintenance Advance Directives For more information, please contact: [phone] * Full Code (Latest Code Status on File) Date Activated Date Inactivated Comments 07/16/2013 10:09 AM 07/16/2013 4:04 PM * Full Code Date Activated Date Inactivated Comments 04/27/2012 10:04 AM 04/27/2012 1:08 PM * Full Code Date Activated Date Inactivated Comments 03/28/2012 12:45 PM 03/28/2012 3:18 PM * Full Code Date Activated Date Inactivated Comments 03/28/2012 11:32 AM 03/28/2012 12:45 PM * Full Code Date Activated Date Inactivated Comments 01/23/2012 12:08 PM 01/24/2012 4:12 PM Care Teams Drawer In Hand Relationship Specialty Start Date End Date Walt Quintero MD [address] [address] PCP - General 07/23/05
--- OUTSIDE RECORDS SUMMARY | 2025-07-22 07:56 | XMS_ITS | Encounter Summary ---
Author Organization [facility] Address [address] [place] [address] Care Team Providers Care Kiln Operator Helper Name Role Phone Walt Quintero MD Primary Care Provider Encounter Details Date Type Department Care Team (Latest Contact Info) Description 09/15/2004 Outpatient Historical [facility] [place] [address] [place] [address] Wendie Cat MD [address] [place] [address] Skin sensation disturb (Primary Dx); MYALGIA AND MYOSITIS NOS Social History Tobacco Use Types Packs/Day Years Used Date Smoking Tobacco: Never Assessed Comments Unknown Sex and Gender Information Value Date Recorded Sex Assigned at Not on file Legal Sex Female 4:11 AM WIDE AREA NETWORK ADMINISTRATOR Gender Identity Not on file Sexual Orientation Not on file documented as of this encounter Plan of Treatment Not on file documented as of this encounter Visit Diagnoses Diagnosis Skin sensation disturb- Primary Disturbance of skin sensation Myalgia and myositis, unspecified Mylagia and myositis, unspecified documented in this encounter Additional Health Concerns Infection Onset Date Last Indicated Resolved Time R/O COVID-19 06/12/2020 06/12/2020 06/12/2020 5:13 PM WIDE AREA NETWORK ADMINISTRATOR COVID-19 06/12/2020 06/12/2020 07/12/2020 8:08 PM WIDE AREA NETWORK ADMINISTRATOR R/O COVID-19 09/16/2020 09/16/2020 09/16/2020 6:00 PM WIDE AREA NETWORK ADMINISTRATOR documented as of this encounter Care Teams Kiln Operator Helper Relationship Specialty Start Date End Date Walt Quintero MD [address] [address] PCP - General 07/23/05 documented as of this encounter
--- OUTSIDE RECORDS SUMMARY | 2025-07-22 07:56 | XMS_ITS | Encounter Summary ---
Author Organization [facility] Address [address] [place] [address] Care Team Providers Care Door Cutter Name Role Phone Walt Quintero MD Primary Care Provider [phone] Encounter Details Date Type Department Care Team (Latest Contact Info) Description 06/11/2013 Ancillary Orders [facility] Orthopedics - Orthopedic [facility] [address] [place] [id number] Mo Felder MD [address] [place] [address] Pain in joint, shoulder region (Primary Dx); Impingement syndrome, shoulder; SLAP (superior glenoid labrum lesion) Social History Tobacco Use Types Packs/Day Years Used Date Smoking Tobacco: Every Day Cigarettes 0.8 24 Smokeless Tobacco: Never Comments:64 Alcohol Use Standard Drinks/Week Comments No 0 (1 standard drink = 0.6 oz pur e alcohol) Comments No Sex and Gender Information Value Date Recorded Sex Assigned at Not on file Legal Sex Female 4:11 AM SPINDLE TESTER Gender Identity Not on file Sexual Orientation Not on file Occupation Industry Job Start Date Job End Date Not on file Not on file Not on file Not on file documented as of this encounter Plan of Treatment Not on file documented as of this encounter Results * XR SHOULDER 2+ VW RIGHT (06/11/2013 8:10 AM SPINDLE TESTER) Anatomical Region Laterality Modality Upper Extremity Computed Radiogr aphy 06/11/2013 7:25 AM SPINDLE TESTER Impressions 06/11/2013 8:17 AM SPINDLE TESTER IMPRESSION: See report below. Exam: XR SHOULDER 2+ VW RIGHT Date/Time of Exam: Jun 11, 2013 08:10:18 AM Reason For Exam: Pain in joint, shoulder region. Comparison: 05/17/2013. Findings: Internal and external rotation views of the right shoulder demonstrate intra-articular injection of contrast. No obvious extravasation is identified into the subacromial-subdeltoid bursa to suggest the presence of a large full-thickness cuff tear. The joints and osseous structures have an appropriate appearance. Impression: Status post intra-articular contrast injection. Please refer to the MR arthrogram for further details. RADHA/andrew - uploaded from [employer] - Narrative Procedure Note Kamlesh Mason, - 06/11/2013 IMPRESSION IMPRESSION: See report below. Exam: XR SHOULDER 2+ VW RIGHT Date/Time of Exam: Jun 11, 2013 08:10:18 AM Reason For Exam: Pain in joint, shoulder region. Comparison: 05/17/2013. Findings: Internal and external rotation views of the right shoulder demonstrate intra-articular injection of contrast. No obvious extravasation is identified into the subacromial-subdeltoid bursa to suggest the presence of a large full-thickness cuff tear. The joints and osseous structures have an appropriate appearance. Impression: Status post intra-articular contrast injection. Please refer to the MR arthrogram for further details. RADHA/andrew - uploaded from [employer] - us Mo Felder MD DIAGNOSTIC IMAGING ORDERABLES Final Result documented in this encounter Visit Diagnoses Diagnosis Pain in joint, shoulder region- Primary Impingement syndrome, shoulder Other affections of shoulder region, not elsewhere classified SLAP (superior glenoid labrum lesion) Superior glenoid labrum lesion Pain in joint, shoulder region Impingement syndrome, shoulder Other affections of shoulder region, not elsewhere classified SLAP (superior glenoid labrum lesion) Superior glenoid labrum lesion documented in this encounter Additional Health Concerns Infection Onset Date Last Indicated Resolved Time R/O COVID-19 06/12/2020 06/12/2020 06/12/2020 5:13 PM SPINDLE TESTER COVID-19 06/12/2020 06/12/2020 07/12/2020 8:08 PM SPINDLE TESTER R/O COVID-19 09/16/2020 09/16/2020 09/16/2020 6:00 PM SPINDLE TESTER documented as of this encounter Care Teams Door Cutter Relationship Specialty Start Date End Date Walt Quintero MD [address] [facility] [address] [place] [address] PCP - General 07/23/05 documented as of this encounter
--- OUTSIDE RECORDS SUMMARY | 2025-07-22 07:56 | XMS_ITS | Encounter Summary ---
Author Organization [facility] Address [address] [place] [address] Care Team Providers Care Rug Shampooer Name Role Phone Walt Quintero MD Primary Care Provider [phone] Reason for Referral * Outpatient Services (Routine) - Closed Specialty Diagnoses / Procedures Referred By Real kraus Referred To Contact Diagnoses Other screening mammogram Procedures MAMMO DIGITAL SCREEN BILAT Walt Quintero MD [address] [address] Phone: tel: fax: Referral ID Status Reason Start Date Expiration Date Visits Re quested Visits Authorized [id number] Closed 06/16/2011 06/15/2012 1 1 OR LEAD SOFTWARE ENGINEER Encounter Details Date Type Department Care Team (Latest Contact Info) Description 06/16/2011 Ancillary Orders [facility] Pre-Registration [place] CALL TO MAKE APPOINTMENT ONLY [address] [place] [address] Walt Quintero MD [address] [address] Other screening mammogram Social History Tobacco Use Types Packs/Day Years Used Date Smoking Tobacco: Every Day Cigarettes 0.8 24 Started: 06/23/1986; Last attempted to quit: 06/23/2010 Smokeless Tobacco: Never Alcohol Use Standard Drinks/Week Comments Yes 0 (1 standard drink = 0.6 oz pur e alcohol) very rare Comments No Sex and Gender Information Value Date Recorded Sex Assigned at Not on file Legal Sex Female 4:11 AM SENIOR LEAD SOFTWARE ENGINEER Gender Identity Not on file Sexual Orientation Not on file documented as of this encounter Plan of Treatment Not on file documented as of this encounter Results * MAMMO DIGITAL SCREEN BILAT (06/23/2011 1:00 PM SENIOR LEAD SOFTWARE ENGINEER) Anatomical Region Laterality Modality Breast Bilateral Mammography Narrative 06/24/2011 4:26 PM SENIOR LEAD SOFTWARE ENGINEER Bilateral Mammogram Reason for Exam: Screening Comparison: Comparison is made with the prior exam(s) dated 12.04.09 Findings: Bilateral CC and MLO views were obtained. This examination was reviewed with the aid of a computer-aided detection system(CAD). The breast tissue density is average. No significant new findings since the prior mammogram(s). Procedure Note Luanne Art MD - 06/24/2011 Bilateral Mammogram Reason for Exam: Screening Comparison: Comparison is made with the prior exam(s) dated 12.04.09 Findings: Bilateral CC and MLO views were obtained. This examination was reviewed with the aid of a computer-aided detectionsystem(CAD). The breast tissue density is average. No significant new findings since the prior mammogram(s). Walt Quintero MD MAMMO ORDERABLES Final Result documented in this encounter Visit Diagnoses Diagnosis Other screening mammogram Other screening mammogram documented in this encounter Additional Health Concerns Infection Onset Date Last Indicated Resolved Time R/O COVID-19 06/12/2020 06/12/2020 06/12/2020 5:13 PM SENIOR LEAD SOFTWARE ENGINEER COVID-19 06/12/2020 06/12/2020 07/12/2020 8:08 PM SENIOR LEAD SOFTWARE ENGINEER R/O COVID-19 09/16/2020 09/16/2020 09/16/2020 6:00 PM SENIOR LEAD SOFTWARE ENGINEER documented as of this encounter Care Teams Rug Shampooer Relationship Specialty Start Date End Date Walt Quintero MD [address] [place] [phone] PCP - General 07/23/05 documented as of this encounter
--- NOTE | 2025-07-22 08:51 | PC.NURSE ---
pt sleeping in bed with equal chest rise and 96% on room air, visitor at bedside sleeping too.
--- NOTE | 2025-07-22 11:10 | PC.NURSE ---
sales support coordinator rounds at 1045- gave patient and family stroke education book and reviewed it with them, even if not a stroke diagnosis, good education for stroke prevention. Patient and family verbalized understanding and I answered all questions.
--- NOTE | 2025-07-22 13:54 | PC.NURSE ---
Physician notified on pt's admit and arrival to [facility] bed 2 Called via telephone,left a message and message voalte to put admit orders and diet order.
--- NOTE | 2025-07-22 17:11 | PM.PN ---
Vitals/I&O/Wt Last Vital Signs Temp 97.9 F 07/21/25 14:52 Pulse 79 07/22/25 09:46 Resp 18 07/22/25 06:37 BP 104/72 07/22/25 09:46 Pulse Ox 97 07/22/25 09:46 O2 Del Method Room Air 07/22/25 08:31 07/22/25 07/22/25 07/22/25 06:59 14:59 22:59 Intake Total 1999 / 2999 Balance 1999 Weight last 48 hrs Weight 70.3 kg Weight 65.771 kg Data 07/21/25 15:07 07/21/25 15:07 A&P PDMP PDMP Reviewed: Not Reviewed Coding Level of Care Code Acute Code for Chg Fwd
--- NOTE | 2025-07-22 18:48 | PC.NURSE ---
Physician notified called doctor via phone x2 thru telegraphic typewriter operator and thru his #, voicemail is full. Voalte message the doctor that pt and family at bedside would like to see and talk to the doctor. By shift change doctor came to patient's room.
--- NOTE | 2025-07-22 20:13 | USCV_ITS ---
Christina Morgan Age: 60 Gender: F : 1965 Exam Date: 07/22/2025 09:22 Ordering Phys: Patricia Castellon NP Technologist: [place] [facility] [place] cp sob hx aaa BP: 85 / 55 HR: 70 Rhythm: Sinus Technical Quality: Adequate MEASUREMENTS (Male / Female) Normal Values 2D ECHO LV Diastolic Diameter PLAX 4.2 cm 4.2 - 5.9 / 3.9 - 5.3 cm IVS Diastolic Thickness 1.1 cm 0.6 - 1.0 / 0.6 - 0.9 cm IVS Systolic Thickness 1.8 cm LVPW Diastolic Thickness 1.3 cm 0.6 - 1.0 / 0.6 - 0.9 cm LVPW Systolic Thickness 1.5 cm LVOT Diameter 2.0 cm LV Ejection Fraction 2D Teich 67.3 % LV Ejection Fraction MOD 4C 63.9 % LV Ejection Fraction MOD 2C 73.2 % LV Ejection Fraction 2C AL 73.8 % LA Diameter 3.1 cm RA Systolic Volume 4C AL 55.7 ml RA Systolic Volume 4C MOD 52.1 ml Aorta at Sinotubular Diameter 3.3 cm IVC Diameter 1.4 cm M-MODE LA Ao Ratio MM 1.1 AV Cusp Separation MM 2.8 cm DOPPLER AV Peak Velocity 158.0 cm/s LVOT Peak Velocity 105.0 cm/s AV Area Cont Eq vti 2.3 cm squared AV Area Cont Eq pk 2.1 cm squared MV Area PHT 2.4 cm squared Mitral E to A Ratio 1.1 TV Peak Velocity 217.5 cm/s TR Peak Velocity 290.0 cm/s TR Peak Gradient 33.6 mmHg TV Peak E Velocity 126.0 cm/s PV Peak Velocity 104.0 cm/s FINDINGS Left Ventricle Normal left ventricular size, systolic function and wall thickness, with no regional wall motion abnormalities. Left ventricular ejection fraction is estimated at 60 %. Grade I/IV diastolic dysfunction (abnormal relaxation filling pattern), normal to mildly elevated filling pressures. Right Ventricle Normal right ventricular size and systolic function. Right Atrium Normal right atrial size. Left Atrium Normal left atrial size. IA Septum Normal appearance of the interatrial septum. Mitral Valve Mild mitral annular calcification. Mild mitral valve regurgitation. Aortic Valve Mild aortic valve calcification. No aortic valve stenosis. Tricuspid Valve Normal tricuspid valve structure. No tricuspid valve stenosis or regurgitation. Normal pulmonary pressure. Pulmonic Valve Normal pulmonic valve structure. No pulmonic valve stenosis or regurgitation. Pericardium No pericardial effusion. Aorta Normal diameter of the aortic root and ascending thoracic aorta. IVC Normal IVC diameter. CONCLUSIONS Normal left ventricular size, systolic function and wall thickness, with no regional wall motion abnormalities. Left ventricular ejection fraction is estimated at 60 %. Grade I/IV diastolic dysfunction (abnormal relaxation filling pattern), normal to mildly elevated filling pressures. No significant valvular abnormalities. There is no pericardial effusion. Right atrial pressure is around 5 mm of mercury. Dayna Paulino MD (Electronically Signed) Final Date: 22 July 2025 15:55 S
[2025-07-23] VITALS: BP 128/76; PULSE 61; RESP 20; O2SAT 97
--- NOTE | 2025-07-23 00:38 | P.PN_ITS ---
Subjective 2 Subjective: Patient is a very pleasant 60-year-old female seen and examined at bedside on hospital rounds today. Patient sitting up in bed denying chest pain, shortness of breath, or current dizziness. Spoke with patient about use of metoprolol, currently held and will reduce dosing given episodes of bradycardia. 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 Spoke with neurosurgeon at [facility] who states that the patient can follow-up outpatient with neurology, no transfer necessary at this point. Patient does have pending MRI tomorrow morning, will most likely discharge if she remains medically stable. All questions and concerns addressed with patient and her family at the bedside today. Vitals/I&O/Wt Last Vital Signs Temp 97.9 F 07/21/25 14:52 Pulse 61 07/23/25 00:00 Resp 20 H 07/23/25 00:00 BP 128/76 07/23/25 00:00 Pulse Ox 97 07/23/25 00:00 O2 Del Method Room Air 07/23/25 00:00 Weight last 48 hrs Weight 70.3 kg Weight 65.771 kg Physical Exam 2 Narrative: Constitutional * NAD Neurologic * Awake and alert. Oriented x3. * No facial asymmetry, unilateral weakness or speech deficits. Head * Normocephalic. Atraumatic. Eyes * PERRLA. EOMI. No nystagmus. Ears, Nose, Throat * Normal external ears. Hearing intact to normal voice. * Normal external nose. No epistaxis. * Dry MM Respiratory * CTAB * No dyspnea at rest or with conversation. No accessory muscle use. * On room air. Heart / Cardiovascular * Regular rate and rhythm. * No murmur Extremities * No edema bilaterally * Distal pulses 2+ and symmetric. No cyanosis. * Sensation intact to light touch. Abdomen / Gastrointestinal * Soft. Non-tender. Non-distended. + BS. Genitourinary * No suprapubic Musculoskeletal * No gross deformities, asymmetry, swelling or muscle atrophy on observation * Full ROM in all major joints without pain * Strength 5/5 throughout in bilateral upper and lower extremities Skin / Integumentary * No rashes, lesions, petechiae / ecchymosis, ulcerations or open wounds. Data 07/21/25 15:07 07/21/25 15:07 A&P Assessment and plan 1. Dizziness: Plan: # Dizziness - MRI head w/wo scheduled for tomorrow morning - Neuro checks - Meclizine 25 BID prn # Symptomatic bradycardia - cardiac monitoring - echo - hold BB - orthostatic VS QShift x4 # Dehydration - Resolved, oral intake of food and fluid adequate # Cerebral aneurysms CT head identified intracranial aneurysms (4 x 5 mm left MCA bifurcation and 2.5 mm left PCOM infundibulum vs small aneurysm). - Will need to refer her for outpatient neurosurgical evaluation VTE PPx: SCDs PDMP PDMP Reviewed: Not Reviewed Attestations 2 Medical Necessity Statement*: Patient admitted will need continued hospitalization pending MRI, will most likely discharge tomorrow.. Coding Level of Care Code 55888 Diagnoses Dizziness R42
--- NOTE | 2025-07-23 00:38 | PM.PN ---
Subjective Subjective: Patient is a very pleasant 60-year-old female seen and examined at bedside on hospital rounds today. Patient sitting up in bed denying chest pain, shortness of breath, or current dizziness. Spoke with patient about use of metoprolol, currently held and will reduce dosing given episodes of bradycardia. 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 Spoke with neurosurgeon at [facility] who states that the patient can follow-up outpatient with neurology, no transfer necessary at this point. Patient does have pending MRI tomorrow morning, will most likely discharge if she remains medically stable. All questions and concerns addressed with patient and her family at the bedside today. Vitals/I&O/Wt Last Vital Signs Temp 97.9 F 07/21/25 14:52 Pulse 61 07/23/25 00:00 Resp 20 H 07/23/25 00:00 BP 128/76 07/23/25 00:00 Pulse Ox 97 07/23/25 00:00 O2 Del Method Room Air 07/23/25 00:00 Weight last 48 hrs Weight 70.3 kg Weight 65.771 kg Physical Exam Narrative: Constitutional NAD Neurologic Awake and alert. Oriented x3. No facial asymmetry, unilateral weakness or speech deficits. Head Normocephalic. Atraumatic. Eyes PERRLA. EOMI. No nystagmus. Ears, Nose, Throat Normal external ears. Hearing intact to normal voice. Normal external nose. No epistaxis. Dry MM Respiratory CTAB No dyspnea at rest or with conversation. No accessory muscle use. On room air. Heart / Cardiovascular Regular rate and rhythm. No murmur Extremities No edema bilaterally Distal pulses 2+ and symmetric. No cyanosis. Sensation intact to light touch. Abdomen / Gastrointestinal Soft. Non-tender. Non-distended. + BS. Genitourinary No suprapubic Musculoskeletal No gross deformities, asymmetry, swelling or muscle atrophy on observation Full ROM in all major joints without pain Strength 5/5 throughout in bilateral upper and lower extremities Skin / Integumentary No rashes, lesions, petechiae / ecchymosis, ulcerations or open wounds. Data 07/21/25 15:07 07/21/25 15:07 A&P Assessment and plan 1. Dizziness: Plan: # Dizziness - MRI head w/wo scheduled for tomorrow morning - Neuro checks - Meclizine 25 BID prn # Symptomatic bradycardia - cardiac monitoring - echo - hold BB - orthostatic VS QShift x4 # Dehydration - Resolved, oral intake of food and fluid adequate # Cerebral aneurysms CT head identified intracranial aneurysms (4 x 5 mm left MCA bifurcation and 2.5 mm left PCOM infundibulum vs small aneurysm). - Will need to refer her for outpatient neurosurgical evaluation VTE PPx: SCDs PDMP PDMP Reviewed: Not Reviewed Attestations Medical Necessity Statement*: Patient admitted will need continued hospitalization pending MRI, will most likely discharge tomorrow.. Coding Level of Care Code 13419 Diagnoses Dizziness R42
[2025-07-23 03:26] VITALS: BP 113/69; PULSE 58; RESP 17; O2SAT 97
[2025-07-23 04:43] VITALS: BMI 26.6
[2025-07-23 05:11] LABS: Hematocrit 35.0 % (36-47); Hemoglobin 11.40 g/dL (11.27-16.99); Mean Corpuscular HGB Conc 32.6 g/dL (30-55); Mean Corpuscular Hemoglobin 31.4 pg (27-33); Mean Corpuscular Volume 96.4 fl (85-98); Nucleated Red Blood Cells % 0 %; Platelet Count 187 10^3/cmm (157-399); Red Blood Count 3.63 10^6/uL (3.85-5.65); White Blood Count 6.89 10^3/uL (3.29-11.43)
[2025-07-23 05:22] LABS: Alanine Aminotransferase 20 U/L (0-33); Albumin Level 3.4 g/dL (3.5-5.2); Alkaline Phosphatase 54 U/L (35-105); Anion Gap 13.0 (5-19); Aspartate Amino Transferase 20 U/L (0-32); Blood Urea Nitrogen 20 mg/dL (8-23); Calcium 8.4 mg/dL (8.5-10.5); Carbon Dioxide 24 mmol/L (22-29); Chloride 109 mmol/L (98-107); Globulin 2.2 g/dL (1.3-4.6); Glucose 107 mg/dL (65-115); Magnesium 2.2 mg/dL (1.7-2.3); Osmolality Calculated 297 mOsm/kg (285-295); Potassium 4.0 mmol/L (3.5-5.1); Sodium 142 mmol/L (136-145); Total Protein 5.6 g/dL (6.6-8.7)
--- NOTE | 2025-07-23 07:15 | MR_ITS ---
WS: [id number] MRI BRAIN WITH AND WITHOUT CONTRAST HISTORY: Aneurysm COMPARISON: CT angiogram 07/21/2025 TECHNIQUE: Multiplanar imaging performed through the brain with MultiHance 15 ml's IV. Diffusion imaging is normal. There are several scattered T2 and FLAIR signal hyperintensities in the periventricular white matter. No large territory infarct. No hemorrhage. Mild volume loss in the cerebellum and cerebrum. No susceptibility artifacts or prior lacunar infarcts. Ventricles and extra-axial spaces are normal. Clivus and pituitary gland are normal. Visualized posterior fossa and brainstem are also normal. No enhancing masses. Patient has a known aneurysm involving the LEFT MCA bifurcation. Angiogram was previously described on CT angiogram from 07/13/2025. Possible small aneurysm at the LEFT PCOM origin. No acute large vessel occlusion is identified. Dural venous sinuses are normal. Paranasal sinuses: Mucoperiosteal thickening in the sinuses. Air-fluid level LEFT maxillary sinus and heterogeneity. Mastoid air cells: Small amount of fluid in the RIGHT mastoid tip. Calvarium and scalp: Normal. MR/MR head wo/w con [id number] IMPRESSION: 1. No acute infarct or hemorrhage. 2. Mild cerebral and cerebellar atrophy and small vessel disease. 3. Normal hippocampal formations. 4. LEFT maxillary sinusitis. 5. Patient has known previously described aneurysm LEFT MCA bifurcation and po ssible aneurysm origin of the LEFT PCOM please refer to the prior CT angiogram report of 07/21/2025.
[2025-07-23] MEDS: gadobenate dimeglumine 20 mL vial IV (07:54)
[2025-07-23 08:00] VITALS: BP 161/93; PULSE 66; RESP 17; TEMP 36.8; O2SAT 98
--- NOTE | 2025-07-23 09:26 | PM.DCS ---
Discharge Providers Date of Admission: 07/21/25 17:07 Date of Discharge: July 23, 2025 Attending Provider at Admission: Gustavo Sanchez MD Attending Provider at Discharge: Ankita Ruffin NP Diagnoses at Discharge Discharge Diagnosis 1. 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 Patient presented to [facility] ED on 07/21/25 with acute onset dizziness that began today after getting out of the shower at ~1300. The dizziness is positional, worsening when sitting up or standing. Characterizes dizziness as room spinning that prevents her from standing or ambulating without assistance. Reports mild headache that started concurrently with the dizziness. Denies nausea and vomiting. She has not sustained a syncopal event. Denies unilateral weakness, diminished sensation and difficulty with speech. No recent falls or injury to the head. Patient has been monitoring her heart rate with a smart watch and notes frequent drops into the 40s during normal activity. During episodes of bradycardia she reports feeling profound fatigue and overall feeling unwell. Reports experiencing sensation of a racing heart or palpitations while in bed at night. Hospital Course Hospital Course 1. Dizziness: Plan: # Dizziness - MRI head w/wo : 1. No acute infarct or hemorrhage. 2. Mild cerebral and cerebellar atrophy and small vessel disease. 3. Normal hippocampal formations. 4. LEFT maxillary sinusitis. 5. Patient has known previously described aneurysm LEFT MCA bifurcation and possible aneurysm origin of the LEFT PCOM please refer to the prior CT angiogram report of 07/21/2025. - Meclizine 25 BID prn - Will follow-up outpatient with neurologist - Reviewed with [facility] and who states no need to transfer that patient can follow-up outpatient with neurologist # Symptomatic bradycardia - cardiac monitoring - echo: Normal left ventricular size, systolic function and wall thickness, with no regional wall motion abnormalities. Left ventricular ejection fraction is estimated at 60 %. Grade I/IV diastolic dysfunction (abnormal relaxation filling pattern), normal to mildly elevated filling pressures. No significant valvular abnormalities. There is no pericardial effusion. Right atrial pressure is around 5 mm of mercury. - hold BB - Will have heart monitor outpatient with follow-up with cardiology # Dehydration - Resolved, oral intake of food and fluid adequate # Cerebral aneurysms CT head identified intracranial aneurysms (4 x 5 mm left MCA bifurcation and 2.5 mm left PCOM infundibulum vs small aneurysm). - Will need to refer her for outpatient neurosurgical evaluation Discharge: Discharge is in stable condition, with no restrictions as long as she is not dizzy. Advise no driving while using meclizine or having dizziness. Patient will follow-up outpatient with administrative program specialist this week, will have heart monitor delivered by the end of the week. Education given to patient and family on need to keep blood pressure log and monitor heart rate. Patient will follow-up outpatient with primary care provider in 1 to 3 days of discharge. Holding beta-feli at time of discharge, advised to resume other home medications as previously prescribed. All questions and concerns addressed the patient and her family prior to discharge. Physical Exam Narrative: Constitutional NAD Neurologic Awake and alert. Oriented x3. No facial asymmetry, unilateral weakness or speech deficits. Head Normocephalic. Atraumatic. Eyes PERRLA. EOMI. No nystagmus. Ears, Nose, Throat Normal external ears. Hearing intact to normal voice. Normal external nose. No epistaxis. Dry MM Respiratory CTAB No dyspnea at rest or with conversation. No accessory muscle use. On room air. Heart / Cardiovascular Regular rate and rhythm. No murmur Extremities No edema bilaterally Distal pulses 2+ and symmetric. No cyanosis. Sensation intact to light touch. Abdomen / Gastrointestinal Soft. Non-tender. Non-distended. + BS. Genitourinary No suprapubic Musculoskeletal No gross deformities, asymmetry, swelling or muscle atrophy on observation Full ROM in all major joints without pain Strength 5/5 throughout in bilateral upper and lower extremities Skin / Integumentary No rashes, lesions, petechiae / ecchymosis, ulcerations or open wounds. Discharge Data Studies Completed and Pending Completed Studies During Hospitalization Category Date Time Status CT angio headneck* [id number] Stat Cat Scan 07/21/25 15:[address] head thrombolytic [id number] Stat Cat Scan 07/21/25 15:07 Completed XR chest 1V portable [id number] Stat Exams 07/21/25 15:06 Completed MR head wo/w con [id number] Stat MRI 07/23/25 07:15 Completed CV. echo complete* [id number] Routine Ultrasound 07/22/25 20:13 Completed Radiology Impressions Chest X-Ray 07/21/25 15:06 IMPRESSION: No acute findings. Head/Neck CTA 07/21/25 15:06 IMPRESSION: 1. No acute large vessel occlusion identified. 2. There is a 4 x 5 mm aneurysm present at the left MCA bifurcation on series 4, image 227. Neurosurgical follow-up recommended given size. 3. There is a 2.5 mm infundibulum or small aneurysm left PCOM origin series 4, image 216. IMPRESSION: No occlusion or significant stenosis. REFERENCES: NASCET CRITERIA. The degree of stenosis in the cervical segment of the internal carotid artery is based on NASCET criteria. Normal is no stenosis. Mild is less than 50% stenosis. Moderate is 50-69% stenosis. Severe is 70% to 99% stenosis. Total occlusion is no detectable patent lumen. Head CT 07/21/25 15:07 IMPRESSION: 1. No acute intracranial abnormality. 2. Chronic left maxillary sinusitis changes. ASSESSMENT: ASPECTS ([place] Stroke Program Early CT Score) is 10. ADDENDUM: 07/21/25 1531 Findings were discussed with ISHAN Jiang at 07/21/2025 3:29 PM FREIGHT BRAKE OPERATOR. Head MRI 07/23/25 07:15 IMPRESSION: 1. No acute infarct or hemorrhage. 2. Mild cerebral and cerebellar atrophy and small vessel disease. 3. Normal hippocampal formations. 4. LEFT maxillary sinusitis. 5. Patient has known previously described aneurysm LEFT MCA bifurcation and possible aneurysm origin of the LEFT PCOM please refer to the prior CT angiogram report of 07/21/2025. Laboratory Results WBC 6.89 10^3/uL (3.29-11.43) 07/23/25 04:45 RBC 3.63 10^6/uL (3.85-5.65) L 07/23/25 04:45 Hgb 11.40 g/dL (11.27-16.99) 07/23/25 04:45 Hct 35.0 % (36-47) L 07/23/25 04:45 MCV 96.4 fl (85-98) 07/23/25 04:45 MCH 31.4 pg (27-33) 07/23/25 04:45 MCHC 32.6 g/dL (30-55) 07/23/25 04:45 RDW 13.5 % (12.1-15.1) 07/23/25 04:45 Plt Count 187 10^3/cmm (157-399) 07/23/25 04:45 MPV 10.1 fL (7.4-10.4) 07/23/25 04:45 Neut % (Auto) 49.4 % 07/23/25 04:45 Lymph % (Auto) 33.8 % 07/23/25 04:45 [place] % (Auto) 10.2 % 07/23/25 04:45 Eos % (Auto) 5.7 % 07/23/25 04:45 Baso % (Auto) 0.6 % 07/23/25 04:45 Neut # (Auto) 3.41 10^3/uL (1.8-7.7) 07/23/25 04:45 Lymph # (Auto) 2.3 10^3/uL (0.8-4.8) 07/23/25 04:45 [place] # (Auto) 0.7 10^3/uL (0.2-0.9) 07/23/25 04:45 Eos # (Auto) 0.4 10^3/uL (0.0-0.8) 07/23/25 04:45 Baso # (Auto) 0.0 10^3/uL (0.0-0.1) 07/23/25 04:45 Nucleated RBC % (auto) 0 % 07/23/25 04:45 Nucleated RBCs # 0.0 /100WBC 07/23/25 04:45 PT 11.60 SECONDS (12.1-14.9) L 07/21/25 15:07 INR 0.79 (0.8-1.2) L 07/21/25 15:07 APTT 28.1 SECONDS (23.9-36.7) 07/21/25 15:07 Sodium 142 mmol/L (136-145) 07/23/25 04:45 Potassium 4.0 mmol/L (3.5-5.1) 07/23/25 04:45 Chloride 109 mmol/L (98-107) H 07/23/25 04:45 Carbon Dioxide 24 mmol/L (22-29) 07/23/25 04:45 Anion Gap 13.0 (5-19) 07/23/25 04:45 BUN 20 mg/dL (8-23) 07/23/25 04:45 Creatinine 0.6 mg/dL (0.5-0.9) 07/23/25 04:45 GFR Calculation 102.0 mL/min (90-130) 07/23/25 04:45 Glucose 107 mg/dL (65-115) 07/23/25 04:45 Calculated Osmolality 297 mOsm/kg (285-295) H 07/23/25 04:45 Calcium 8.4 mg/dL (8.5-10.5) L 07/23/25 04:45 Phosphorus 2.9 mg/dL (2.5-4.5) 07/23/25 04:45 Magnesium 2.2 mg/dL (1.7-2.3) 07/23/25 04:45 Total Bilirubin 0.2 mg/dL (0.15-1.2) 07/23/25 04:45 AST 20 U/L (0-32) 07/23/25 04:45 ALT 20 U/L (0-33) 07/23/25 04:45 Alkaline Phosphatase 54 U/L (35-105) 07/23/25 04:45 Total Protein 5.6 g/dL (6.6-8.7) L 07/23/25 04:45 Albumin 3.4 g/dL (3.5-5.2) L 07/23/25 04:45 Globulin 2.2 g/dL (1.3-4.6) 07/23/25 04:45 Urine Color Yellow (Yellow) 07/21/25 16:28 Urine Appearance Turbid (CLEAR) A 07/21/25 16:28 Urine pH 8.5 (5-7) A 07/21/25 16:28 Ur Specific [place] 1.039 (1.005-1.030) H 07/21/25 16: Urine Protein Negative (Negative) 07/21/25 16:28 Urine Glucose (UA) Negative (Normal) 07/21/25 16: Urine Ketones Negative (Negative) 07/21/25 16:28 Urine Blood Negative (Negative) 07/21/25 16:28 Urine Nitrate Negative (Negative) 07/21/25 16: Urine Bilirubin Negative (Negative) 07/21/25 16:28 Urine Urobilinogen 0.2 mg/dL (Negative) 07/21/25 16:28 Ur Leukocyte Esterase Negative (Negative) 07/21/25 16:28 Urine RBC 0-2 /hpf (0-2) 07/21/25 16:28 Urine WBC 0-5 /hpf (0-5) 07/21/25 16:28 Ur Squamous Epith Cells 0-5 /hpf (0-5) 07/21/25 16:28 Amorphous Sediment Not Reportable 07/21/25 16:28 Urine Bacteria None seen /hpf (NONE) 07/21/25 16:28 Hyaline Casts 0-4 /lpf H 07/21/25 16:28 Urine Opiates Screen Negative ng/mL (Negative) 07/21/25 16:28 Ur Barbiturates Screen Negative ng/mL (Negative) 07/21/25 16:28 Ur Phencyclidine Scrn Negative ng/mL (Negative) 07/21/25 16:28 Ur Amphetamines Screen Negative ng/mL (Negative) 07/21/25 16:28 U Benzodiazepines Scrn Negative ng/mL (Negative) 07/21/25 16:28 Urine Cocaine Screen Negative ng/mL (Negative) 07/21/25 16:28 U Marijuana (THC) Screen Negative ng/mL (Negative) 07/21/25 16:28 Vitals Last Vital Signs Temp 98.2 F 07/23/25 08:00 Pulse 66 07/23/25 08:00 Resp 17 07/23/25 08:00 BP 161/93 07/23/25 08:00 Pulse Ox 98 07/23/25 08:00 O2 Del Method Room Air 07/23/25 03:26 Discharge Plan Discharge Patient Disposition: Home Condition: Stable Prescriptions: New meclizine 25 mg Tablet 25 mg PO BID PRN (Reason: Dizziness) 30 Days Qty: 60 0RF Continued atorvastatin 40 mg tablet 40 mg PO BEDTIME aspirin [[place] Low Dose Aspirin] 81 mg Tablet,Delayed Release (Dr/Ec) 81 mg PO DAILY hydrocodone-acetaminophen 7.5-325 mg tablet 1 tab PO Q8H PRN (Reason: Pain) hydrochlorothiazide 25 mg tablet 25 mg PO DAILY lisinopril 40 mg tablet 40 mg PO DAILY mv,Ca,min-folic acid-vit K1 400-20 mcg Tablet 1 tab PO DAILY Held metoprolol tartrate 100 mg tablet 50 mg PO BID Hold Instructions: Resume on 07/25/25. Hold in the setting of bradycardia and if systolic blood pressure less than 110. Review with primary care provider and administrative program specialist before resuming. Please keep a blood pressure log that includes your heart rate as well. Discharge Order = DC NOW: Discharge Order (Routine); Ordered 07/23/25 Ordered By: Ankita Ruffin Referrals: Neurology [Other] - 1 week Referral Note: Out patient management of aneurysms Barry Birmingham MD [Referring, Cardiology] - 1-3 days Referral Note: Clinic will contact to you schedule an follow-up appointment with 1 to 3 days. Thank you Walt Quintero MD [Referring, Family Practice] - 07/26/25 10:40 am Referral Note: Please check-in @10:20a.m. Discharge Diet: Usual diet Discharge Activity: Resume usual activity Patient Instructions: Meclizine (By mouth) (Antivert, Antivert/25, Antivert/50, Motion..., Bradycardia (DC), Dizziness (GEN), Opioid Safety, Patient Portal & Alivia Instructions, Vertigo Stand Alone Forms: Work/School Release Discharge Attestations Time Spent in Discharge Care*: greater than 30 min Quality Metrics Clinical Quality Measures [ No reported AMI, CVA or VTE this stay] Coding Level of Care Code 10742 Diagnoses Dizziness R42
[2025-07-23 10:12] VITALS: BP 160/93; PULSE 52; RESP 20; O2SAT 98
--- NOTE | 2025-07-23 10:29 | PC.NURSE ---
Contacted Cardiology Clinic to schedule follow-up appointment. Clinic support was unable to schedule appointment due to system issues. Clinic support to call patient to schedule this appointment when able.
== END 2025-07-23 11:18 | disposition home or self-care (01) ==
LOC: ER 17:41 → ER IP 19:03 → MEDSURG 07-22 07:51 → CSU 07-22 09:02
PROVIDERS: Admitting Provider Internal Medicine; Emergency Provider Emergency Medicine; Visit Provider Registered Nurse
DX: R42 Dizziness and giddiness (principal); Z79.82 Long term (current) use of aspirin; Z79.891 Long term (current) use of opiate analgesic; E86.0 Dehydration; R00.1 Bradycardia, unspecified
CPT/HCPCS: 36415; 70450; 70496; 70498; 70553; 71045; 80053; 80306; 81001; 83735; 84100; 85025; 85610; 85730; 93005; 93306; 96361; 96374; 96375; 99291; G0378; J2405; J7030; J7120; J8597; J9999